=== PATIENT | male | born 1935 | race Hispanic/Latino ===

== ENCOUNTER 2018-01-14 10:30 | Inpatient (IN) | payer OTHER ==
[2018-01-14] MEDS ORDERED: HYDROCODONE/APAP 5/325 MG TAB ONE (11:10)
--- NOTE | 2018-01-14 12:44 | RAD REPORT ---
EXAM DESCRIPTION: RAD - Knee Left 3 View - 01/14/2018 11:33 am CLINICAL HISTORY: Slip and fall, knee pain COMPARISON: None. FINDINGS: No gross fracture deformity seen. No dislocation or periosteal reaction.Small to moderate joint effusion is present. Medial compartment narrowing seen with marginal spurring. Patellofemoral a nd lateral compartment marginal spurring also present. No joint space narrowing. No soft tissue abnor mality. IMPRESSION: Prominent knee joint degenerative change with joint effusion. No acute fracture identifiable. Clinical concerns for internal derangement or occult bony injury could be further assessed with MR im aging.
--- NOTE | 2018-01-14 12:46 | RAD REPORT ---
EXAM DESCRIPTION: RAD - Lumbar Spine 3 Views - 01/14/2018 11:35 am CLINICAL HISTORY: Fall, back pain COMPARISON: None. FINDINGS: A three-view lumbar spine examination was performed. Lumbar bodies are normal in height wi th no acute compression fracture deformity. There is approximately 10 mm of anterior subluxation L4 o n L5. L4 pars defect is not identified. There are advanced degenerative changes at the L4-5 facet bronson nts which likely account for the subluxation. Stenosis at the superior L5 level is likely present. L4 -5 disc space is narrowed. No pathologic bone process. There is significant disc space narrowing left lateral margin L3-4. L5-S1 disc space narrowing also present peer No pars defects identified. IMPRESSION: No acute compression fracture deformity. Prominent anterior subluxation L4 without L4 pars defect. There is advanced degenerative change at th e L4-5 facet joints. Spinal stenosis at the superior L5 level is likely present. L4-5 and L5-S1 degenerative disc disease.
[2018-01-14] MEDS ORDERED: D50W 25 GM/50 ML SYRINGE IV ONE ×2 (13:42→20:12)
[2018-01-14 14:36] LABS: Absolute Lymphocytes (CBC) 0.6 K/uL (0.7-4.9); Absolute Monocytes 0.4 K/uL (0.1-1.3); Absolute Neutrophil 1.1 K/uL (1.8-8.0); Basophils % 0.3 % (0-1.3); Eosinophils % 0.5 % (0-4.4); Hematocrit 22.9 % (39.6-49.0); MCH 29.8 pg (27.0-35.0); MCV 92.9 fL (80-100); MPV 9.3 fL (7.6-11.3); Monocytes % 20.4 % (3.3-12.3); RBC Red Blood Cell Count 2.46 M/uL (4.33-5.43)
--- NOTE | 2018-01-14 15:11 | RAD REPORT ---
EXAM DESCRIPTION: RAD - Foot Left 3 View - 01/14/2018 1:20 pm CLINICAL HISTORY: Slip and fall, toe pain COMPARISON: None. FINDINGS: No fracture, dislocation or periosteal reaction. No acute or destructive bony process. No air or foreign body in the soft tissues. IMPRESSION: Negative left foot examination.
--- NOTE | 2018-01-14 16:10 | ER ---
Nurse's Notes [facility] Name: Dennys Eden Jr Age: 82 yrs Sex: Male : 1935 Arrival Date: 01/14/2018 Time: 10:33 Bed 15 Private MD: Fercho Nicole R Diagnosis: Hypoglycemia, unspecified;Fall on same level from slipping, tripping and stumbling;Pain in left knee;Hypokalemia;Anemia, unspecified Presentation: 01/14 10:38 Presenting complaint: Child states: "slipped out of bed last night and the night sv before." Pt denies head injury. c/o left knee and toe pain. Care prior to arrival: None. 10:38 Acuity: RANDI 4 sv 10:38 Method Of Arrival: Wheelchair sv 10:40 Mechanism of Injury: Fall from bed. sv 10:50 Transition of care: patient was not received from another setting of care. Onset of rb1 symptoms was January 13, 2018. Risk Assessment: Do you want to hurt yourself or someone else? Patient reports no desire to harm self or others. Initial Sepsis Screen: Does the patient meet any 2 criteria? No. Patient's initial sepsis screen is negative. Does the patient have a suspected source of infection? No. Patient's initial sepsis screen is negative. Historical: - Allergies: 14:52 No Known Allergies; rb1 - Home Meds: 10:42 Celecoxib Oral [Active]; pantoprazole oral oral [Active]; atorvastatin oral oral sv [Active]; tamsulosin oral oral [Active]; Hydrochlorothiazide Oral [Active]; levothyroxine oral [Active]; metoprolol succinate oral oral [Active]; finasteride oral oral [Active]; losartan oral oral [Active]; 14:52 glimepiride 4 mg Oral tab 1 tab once daily [Active]; rb1 - PMHx: 10:42 Hypertension; Diabetes - NIDDM; Hypothyroidism; kidney insufficiency; sv - PSHx: 10:42 double bypass; sv - Immunization history:: Adult Immunizations up to date. - Ebola Screening: : Patient negative for fever greater than or equal to 101.5 degrees Fahrenheit, and additional compatible Ebola Virus Disease symptoms. - Social history:: Smoking status: Patient/guardian denies using tobacco. Screenin:50 Abuse screen: Denies threats or abuse. Nutritional screening: No deficits noted. rb1 Tuberculosis screening: No symptoms or risk factors identified. Fall Risk Fall in past 12 months (25 points). Secondary diagnosis (15 points) impaired mobility, No IV (0 pts). Ambulatory Aid- Crutches/Cane/Walker (15 pts). Gait- Impaired (20 pts.). Mental Status- Oriented to own ability (0 pts). Total Cabrera Fall Scale indicates High Risk Score (45 or more points). Fall prevention measures have been instituted. Side Rails Up X 2 Placed Close to Nursing Station 1:1 Attendant Assigned Frequent Obs/Assessments Occuring Family Present and informed to notify staff if the need to leave the bedside As available patient and family educated on Fall Prevention Program and Strategies. Assessment: 10:50 General: Appears uncomfortable, Behavior is calm, cooperative. Pain: Complains of pain rb1 in left knee and left great toe Pain currently is 10 out of 10 on a pain scale. Pain began last night Aggravated by weight bearing. Neuro: Level of Consciousness is awake, alert, obeys commands, Oriented to person, place, time, situation. Cardiovascular: Capillary refill < 3 seconds is brisk in bilateral fingers Pulses are palpable in left dorsalis pedis artery. Respiratory: Airway is patent Respiratory effort is even, unlabored, Respiratory pattern is regular, symmetrical. GI: No signs and/or symptoms were reported involving the gastrointestinal system. : No signs and/or symptoms were reported regarding the genitourinary system. Derm: Skin is dry, Skin is normal, Skin temperature is warm. Musculoskeletal: Swelling present in left knee. 11:10 Reassessment: Pt. went to X-ray. rb1 12:08 Reassessment: Patient appears in no apparent distress at this time. pt. is resting with rb1 eyes closed, respirations even, unlabored. call light within reach. bed in low, locked position. Family at bedside. 13:40 Reassessment: Pt. is diaphoretic and obtunded. Family at bedside. Provider aware of BS rb1 28, received order for 1 amp of D50 IVP. 13:47 Reassessment: Patient awake and alert 2 min post IV D 50 administration. Able to move aj extremities. 14:13 Reassessment: Patient is awake and alert. Ate roast beef sandwich and potato chips. aj 14:19 Reassessment: Dr. Posada and Rosalia Camara notified of critical lab value of 33. ss 14:30 Reassessment: Patient appears in no apparent distress at this time. Patient and/or rb1 family updated on plan of care and expected duration. Pain level reassessed. Patient is alert, oriented x 3, equal unlabored respirations, skin warm/dry/pink. 14:40 Reassessment: Received lab alert for Hgb of 7.3. rb1 14:42 Reassessment: Notified provider of lab alert for Hgb 7.3. rb1 15:30 Reassessment: Patient appears in no apparent distress at this time. No changes from rb1 previously documented assessment. 16:29 Reassessment: Patient appears in no apparent distress at this time. Patient and/or rb1 family updated on plan of care and expected duration. Pain level reassessed. Patient is alert, oriented x 3, equal unlabored respirations, skin warm/dry/pink. 17:23 Reassessment: Patient appears in no apparent distress at this time. No changes from rb1 previously documented assessment. Family at bedside. 18:21 Reassessment: Patient appears in no apparent distress at this time. Patient and/or rb1 family updated on plan of care and expected duration. Pain level reassessed. Patient is alert, oriented x 3, equal unlabored respirations, skin warm/dry/pink. 19:10 Reassessment: Report received from CHRIS Good. bs1 19:10 General: Appears uncomfortable, Behavior is cooperative. Pain: Complains of pain in bs1 left leg and left knee, left big toe. Neuro: Level of Consciousness is awake, alert, obeys commands, Oriented to person, place, time, situation. Cardiovascular: Denies chest pain, shortness of breath, Heart tones S1 S2 present Capillary refill < 3 seconds is brisk in bilateral fingers Pulses. Respiratory: Airway is patent Trachea midline Respiratory effort is even, unlabored, Respiratory pattern is regular, symmetrical, Breath sounds are clear bilaterally. GI: No signs and/or symptoms were reported involving the gastrointestinal system. : No signs and/or symptoms were reported regarding the genitourinary system. Derm: Skin left big toe red/swollen. Musculoskeletal: Circulation, motion, and sensation intact. Capillary refill < 3 seconds, Range of motion: limited in left leg and left knee Swelling present in left leg and left knee, left big toe. Vital Signs: 10:42 BP 106 / 48; Pulse 70; Resp 18; Temp 97.6(TE); Pulse Ox 96% on R/A; Weight 72.12 kg; sv Height 5 ft. 8 in. (172.72 cm); Pain 8; 11:30 BP 126 / 52; Pulse 57; Resp 19; Pulse Ox 99% on R/A; rb1 12:30 BP 97 / 48; Pulse 64; Resp 18; Pulse Ox 96% on R/A; mh5 13:18 BP 105 / 49; Pulse 52; Resp 18; Pulse Ox 97% on R/A; mh5 14:00 BP 122 / 68; Pulse 59; Resp 19; Pulse Ox 100% on R/A; rb1 14:30 BP 141 / 73; Pulse 55; Resp 19; Pulse Ox 100% on R/A; rb1 15:51 BP 147 / 63; Pulse 84; Resp 18; Pulse Ox 100% on R/A; mh5 16:30 BP 139 / 74; Pulse 66; Resp 18; Pulse Ox 100% on R/A; rb1 17:30 BP 133 / 71; Pulse 72; Resp 19; Pulse Ox 99% on R/A; rb1 18:30 BP 144 / 67; Pulse 69; Resp 19; Pulse Ox 99% on R/A; rb1 19:30 BP 144 / 61; Pulse 73; Resp 16 S; Temp 98(O); Pulse Ox 99% on R/A; bs1 10:42 Body Mass Index 24.18 (72.12 kg, 172.72 cm) sv ED Course: 10:33 Patient arrived in ED. sb2 10:34 Fercho Nicole MD is Private Physician. sb2 10:40 Triage completed. sv 10:45 Arm band placed on right wrist. sv 10:46 Latisha Infante, CHRIS is Primary Nurse. rb1 10:48 Jordan Posada MD is Attending Physician. gs 10:50 Patient has correct armband on for positive identification. Bed in low position. Call rb1 light in reach. Side rails up X 1. Pulse ox on. NIBP on. Warm blanket given. 10:51 Ros[facility] snw 11:15 Patient moved to radiology via stretcher. kc2 11:15 X-ray completed. Patient tolerated procedure well. kc2 11:15 Patient moved back from radiology. kc2 11:17 Knee Left 3 View XRAY In Process Unspecified. EDMS 11:17 Lumbar Spine (3 Views) XRAY In Process Unspecified. EDMS 13:20 Foot Left 3 View XRAY In Process Unspecified. EDMS 13:46 Inserted saline lock: 22 gauge in right forearm, using aseptic technique. Blood aj collected. 16:08 Fercho Nicole MD is Hospitalizing Provider. snw 17:33 Knee immobilizer applied on left knee. ss 19:00 Report given to CHRIS Chavez. rb1 19:47 No provider procedures requiring assistance completed. Inserted saline lock: 22 gauge bs1 in right antecubital area, using aseptic technique. IV inserted by day shift CHRIS Good Patient admitted, IV remains in place. intact. Administered Medications: 11:10 Drug: [place] 5 mg-325 mg 1 tabs Route: PO; rb1 11:40 Follow up: Response: No adverse reaction; Pain is decreased rb1 13:46 Drug: D50W 50 ml Route: IVP; Site: right forearm; aj 14:09 Follow up: Response: Marked relief of symptoms aj 16:23 Drug: LevaQUIN 500 mg Route: PO; rb1 19:49 Follow up: Response: No adverse reaction bs1 16:53 Drug: Potassium Chloride 20 mEq Route: PO; rb1 19:49 Follow up: Response: No adverse reaction bs1 Point of Care Testing: Blood Glucose: 13:46 Blood Glucose: 28 mg/dL; aj 14:13 Blood Glucose: 136 mg/dL; aj 15:50 Blood Glucose: 152 mg/dL; rb1 Ranges: Outcome: 16:10 Decision to Hospitalize by Provider. snw 19:48 Admitted to Tele accompanied by tech, via stretcher, room 423, with chart, Report bs1 called to CHRIS Sneed 19:48 Condition: stable 19:48 Instructed on the need for admit, Demonstrated understanding of instructions. 19:50 Patient left the ED. bs1 Signatures: Dispatcher [employer] Angela Hi RN RN sv Myers, Amanda, RN RN aj Therrien, Shelly, MICROFILM EQUIPMENT INSPECTOR-C MICROFILM EQUIPMENT INSPECTOR-Csnw Rosita Carrillo RN RN ss Barber, Rebecca, RN RN rb1 Carr, Kelsie kc2 Rufina Jara 5 Jordan Posada MD MD Kathy Pak RN RN bs1 Corazon French sb2 Corrections: (The following items were deleted from the chart) 11:15 11:15 Patient moved to radiology via wheelchair. kc2 kc2 14:52 10:42 Allergies: No Known Allergies; sv rb1
--- NOTE | 2018-01-14 16:10 | EDPHYS ---
Physician Documentation [facility] Name: Dennys Eden Jr Age: 82 yrs Sex: Male : 1935 Arrival Date: 01/14/2018 Time: 10:33 Bed 15 Private MD: Fercho Nicole R ED Physician Jordan Posada HPI: 01/14 13:45 This 82 yrs old Male presents to ER via Wheelchair with complaints of Fall snw Injury, Leg Swelling. 13:45 Details of fall: The patient fell from seated position, off the edge of a bed. Onset: snw The symptoms/episode began/occurred suddenly, yesterday, pt slid from bed again today. Associated injuries: The patient sustained left knee, decreased range of motion, painful injury, swelling. Severity of symptoms: At their worst the symptoms were moderate. It is unknown whether or not the patient has had similar symptoms in the past. The patient has not recently seen a physician. Historical: - Allergies: 14:52 No Known Allergies; rb1 - Home Meds: 10:42 Celecoxib Oral [Active]; pantoprazole oral oral [Active]; atorvastatin oral oral sv [Active]; tamsulosin oral oral [Active]; Hydrochlorothiazide Oral [Active]; levothyroxine oral [Active]; metoprolol succinate oral oral [Active]; finasteride oral oral [Active]; losartan oral oral [Active]; 14:52 glimepiride 4 mg Oral tab 1 tab once daily [Active]; rb1 - PMHx: 10:42 Hypertension; Diabetes - NIDDM; Hypothyroidism; kidney insufficiency; sv - PSHx: 10:42 double bypass; sv - Immunization history:: Adult Immunizations up to date. - Ebola Screening: : Patient negative for fever greater than or equal to 101.5 degrees Fahrenheit, and additional compatible Ebola Virus Disease symptoms. - Social history:: Smoking status: Patient/guardian denies using tobacco. ROS: 13:44 Eyes: Negative for injury, pain, redness, and discharge, ENT: Negative for injury, snw pain, and discharge, Neck: Negative for injury, pain, and swelling. 13:44 Cardiovascular: Negative for chest pain, palpitations, and edema, Respiratory: Negative for shortness of breath, cough, wheezing, and pleuritic chest pain, Abdomen/GI: Negative for abdominal pain, nausea, vomiting, diarrhea, and constipation, Back: Negative for injury and pain, : Negative for injury, bleeding, discharge, and swelling, Skin: Negative for injury, rash, and discoloration, Neuro: Negative for headache, weakness, numbness, tingling, and seizure. 13:44 Constitutional: Positive for fatigue, malaise. 13:44 MS/extremity: Positive for decreased range of motion, pain, swelling, tenderness, of the left knee. Exam: 12:42 Constitutional: This is a well developed, well nourished patient who is awake, alert, snw and in no acute distress. Head/Face: Normocephalic, atraumatic. Eyes: Pupils equal round and reactive to light, extra-ocular motions intact. Lids and lashes normal. Conjunctiva and sclera are non-icteric and not injected. Cornea within normal limits. Periorbital areas with no swelling, redness, or edema. ENT: Nares patent. No nasal discharge, no septal abnormalities noted. Tympanic membranes are normal and external auditory canals are clear. Oropharynx with no redness, swelling, or masses, exudates, or evidence of obstruction, uvula midline. Mucous membranes moist. Neck: Trachea midline, no thyromegaly or masses palpated, and no cervical lymphadenopathy. Supple, full range of motion without nuchal rigidity, or vertebral point tenderness. No Meningismus. Chest/axilla: Normal chest wall appearance and motion. Nontender with no deformity. No lesions are appreciated. Cardiovascular: Regular rate and rhythm with a normal S1 and S2. Grade IV systolic murmur. Normal PMI, no JVD. No pulse deficits. Respiratory: Lungs have equal breath sounds bilaterally, clear to auscultation and percussion. No rales, rhonchi or wheezes noted. No increased work of breathing, no retractions or nasal flaring. Abdomen/GI: Soft, non-tender, with normal bowel sounds. No distension or tympany. No guarding or rebound. No evidence of tenderness throughout. Guaiac negative Back: No spinal tenderness. No costovertebral tenderness. Full range of motion. Skin: Warm, dry with normal turgor. Normal color with no rashes, no lesions, and no evidence of cellulitis. MS/ Extremity: Pulses equal, no cyanosis. Neurovascular intact. Pain to left knee and great toe post fall out of bed yesterday and again today Neuro: Awake and alert, GCS 15, oriented to person, place, time, and situation. Cranial nerves II-XII grossly intact. Motor strength 5/5 in all extremities. Sensory grossly intact. Cerebellar exam normal. Normal gait. Vital Signs: 10:42 BP 106 / 48; Pulse 70; Resp 18; Temp 97.6(TE); Pulse Ox 96% on R/A; Weight 72.12 kg; sv Height 5 ft. 8 in. (172.72 cm); Pain 8/10; 11:30 BP 126 / 52; Pulse 57; Resp 19; Pulse Ox 99% on R/A; rb1 12:30 BP 97 / 48; Pulse 64; Resp 18; Pulse Ox 96% on R/A; mh5 13:18 BP 105 / 49; Pulse 52; Resp 18; Pulse Ox 97% on R/A; mh5 14:00 BP 122 / 68; Pulse 59; Resp 19; Pulse Ox 100% on R/A; rb1 14:30 BP 141 / 73; Pulse 55; Resp 19; Pulse Ox 100% on R/A; rb1 15:51 BP 147 / 63; Pulse 84; Resp 18; Pulse Ox 100% on R/A; mh5 16:30 BP 139 / 74; Pulse 66; Resp 18; Pulse Ox 100% on R/A; rb1 17:30 BP 133 / 71; Pulse 72; Resp 19; Pulse Ox 99% on R/A; rb1 18:30 BP 144 / 67; Pulse 69; Resp 19; Pulse Ox 99% on R/A; rb1 19:30 BP 144 / 61; Pulse 73; Resp 16 S; Temp 98(O); Pulse Ox 99% on R/A; bs1 10:42 Body Mass Index 24.18 (72.12 kg, 172.72 cm) sv MDM: 10:51 Patient medically screened. snw 13:42 Data reviewed: vital signs, nurses notes. Data interpreted: Pulse oximetry: on room air snw is 97 %. Interpretation: normal. Counseling: I had a detailed discussion with the patient and/or guardian regarding: the historical points, exam findings, and any diagnostic results supporting the discharge/admit diagnosis, lab results, radiology results. ED course: Went to relay results to patient, noted he was severely diaphoretic, decreased level of consciousness. Orders placed. 01/14 13:42 Order name: CBC with Diff snw 01/14 13:42 Order name: Chem 7; Complete Time: 14:25 snw 01/14 13:42 Order name: Blood Culture* snw 01/14 16:06 Order name: TS [facility] 01/14 16:06 Order name: TSH snw 01/14 16:06 Order name: Ferritin w 01/14 16:06 Order name: TIBC [facility] 01/14 16:06 Order name: B12 w 01/14 16:26 Order name: Troponin (Emerg Dept Use Only); Complete Time: 16:27 EDMS 01/14 16:29 Order name: Transferrin Sat/Iron Binding; Complete Time: 17:20 EDMS 01/14 16:47 Order name: Ferritin; Complete Time: 17:20 EDMS 01/14 16:51 Order name: Vitamin B12 Level; Complete Time: 17:20 EDMS 01/14 16:59 Order name: Thyroid Stimulating Hormone; Complete Time: 17:20 EDMS 01/14 11:02 Order name: Knee Left 3 View XRAY; Complete Time: 12:47 snw 01/14 11:02 Order name: Lumbar Spine (3 Views) XRAY; Complete Time: 12:47 snw 01/14 12:49 Order name: Knee Immobilizer; Complete Time: 17:32 snw 01/14 12:50 Order name: Foot Left 3 View XRAY; Complete Time: 15:14 snw 01/14 13:42 Order name: SL; Complete Time: 13:46 snw 01/14 13:42 Order name: FSBS; Complete Time: 13:46 snw 01/14 14:32 Order name: EKG; Complete Time: 14:33 snw 01/14 14:32 Order name: EKG - Nurse/Tech; Complete Time: 15:51 snw 01/14 15:47 Order name: FSBS; Complete Time: 15:51 snw 01/14 18:35 Order name: Type and Screen EDMS 01/14 18:35 Order name: ABO/RH no charge EDMS Administered Medications: 11:10 Drug: [place] 5 mg-325 mg 1 tabs Route: PO; rb1 11:40 Follow up: Response: No adverse reaction; Pain is decreased rb1 13:46 Drug: D50W 50 ml Route: IVP; Site: right forearm; aj 14:09 Follow up: Response: Marked relief of symptoms aj 16:23 Drug: LevaQUIN 500 mg Route: PO; rb1 19:49 Follow up: Response: No adverse reaction bs1 16:53 Drug: Potassium Chloride 20 mEq Route: PO; rb1 19:49 Follow up: Response: No adverse reaction bs1 Point of Care Testing: Blood Glucose: 13:46 Blood Glucose: 28 mg/dL; aj 14:13 Blood Glucose: 136 mg/dL; aj 15:50 Blood Glucose: 152 mg/dL; rb1 Ranges: Critical Glucose Levels:Adult <50 mg/dl or >400 mg/dl <40 mg/dl or >180 mg/dl Disposition: 01/15 12:41 Co-signature as Attending Physician, Jordan Posada MD. Disposition: 01/14/18 16:10 Hospitalization ordered by Fercho Nicole for Observation. Preliminary diagnosis are Hypoglycemia, unspecified, Fall on same level from slipping, tripping and stumbling, Pain in left knee, Hypokalemia, Anemia, unspecified. - Bed requested for Telemetry/MedSurg (observation). - Status is Observation. bs1 - Condition is Fair. - Problem is new. - Symptoms have improved. UTI on Admission? No Signatures: Dispatcher [employer] EDMS Angela Simms, RN Zelda Marvin RN Mariaelena Moore RN RN aj Therrien, Shelly, PROCESS DEVELOPMENT MANAGER-C PROCESS DEVELOPMENT MANAGER-Csnw Latisha Infante, RN RN rb1 Jordan Posada MD MD Kathy Pak, RN RN bs1 Corrections: (The following items were deleted from the chart) 01/14 13:45 12:42 Constitutional: This is a well developed, well nourished patient who is awake, snw alert, and in no acute distress. Head/Face: Normocephalic, atraumatic. Eyes: Pupils equal round and reactive to light, extra-ocular motions intact. Lids and lashes normal. Conjunctiva and sclera are non-icteric and not injected. Cornea within normal limits. Periorbital areas with no swelling, redness, or edema. ENT: Nares patent. No nasal discharge, no septal abnormalities noted. Tympanic membranes are normal and external auditory canals are clear. Oropharynx with no redness, swelling, or masses, exudates, or evidence of obstruction, uvula midline. Mucous membranes moist. Neck: Trachea midline, no thyromegaly or masses palpated, and no cervical lymphadenopathy. Supple, full range of motion without nuchal rigidity, or vertebral point tenderness. No Meningismus. Chest/axilla: Normal chest wall appearance and motion. Nontender with no deformity. No lesions are appreciated. Cardiovascular: Regular rate and rhythm with a normal S1 and S2. No gallops, murmurs, or rubs. Normal PMI, no JVD. No pulse deficits. Respiratory: Lungs have equal breath sounds bilaterally, clear to auscultation and percussion. No rales, rhonchi or wheezes noted. No increased work of breathing, no retractions or nasal flaring. Abdomen/GI: Soft, non-tender, with normal bowel sounds. No distension or tympany. No guarding or rebound. No evidence of tenderness throughout. Back: No spinal tenderness. No costovertebral tenderness. Full range of motion. Skin: Warm, dry with normal turgor. Normal color with no rashes, no lesions, and no evidence of cellulitis. MS/ Extremity: Pulses equal, no cyanosis. Neurovascular intact. Pain to left knee and great toe post fall out of bed yesterday and again today Neuro: Awake and alert, GCS 15, oriented to person, place, time, and situation. Cranial nerves II-XII grossly intact. Motor strength 5/5 in all extremities. Sensory grossly intact. Cerebellar exam normal. Normal gait. snw 14:52 10:42 Allergies: No Known Allergies; sv rb1 16:28 12:42 Constitutional: This is a well developed, well nourished patient who is awake, snw alert, and in no acute distress. Head/Face: Normocephalic, atraumatic. Eyes: Pupils equal round and reactive to light, extra-ocular motions intact. Lids and lashes normal. Conjunctiva and sclera are non-icteric and not injected. Cornea within normal limits. Periorbital areas with no swelling, redness, or edema. ENT: Nares patent. No nasal discharge, no septal abnormalities noted. Tympanic membranes are normal and external auditory canals are clear. Oropharynx with no redness, swelling, or masses, exudates, or evidence of obstruction, uvula midline. Mucous membranes moist. Neck: Trachea midline, no thyromegaly or masses palpated, and no cervical lymphadenopathy. Supple, full range of motion without nuchal rigidity, or vertebral point tenderness. No Meningismus. Chest/axilla: Normal chest wall appearance and motion. Nontender with no deformity. No lesions are appreciated. Cardiovascular: Regular rate and rhythm with a normal S1 and S2. Grade IV systolic murmur. Normal PMI, no JVD. No pulse deficits. Respiratory: Lungs have equal breath sounds bilaterally, clear to auscultation and percussion. No rales, rhonchi or wheezes noted. No increased work of breathing, no retractions or nasal flaring. Abdomen/GI: Soft, non-tender, with normal bowel sounds. No distension or tympany. No guarding or rebound. No evidence of tenderness throughout. Back: No spinal tenderness. No costovertebral tenderness. Full range of motion. Skin: Warm, dry with normal turgor. Normal color with no rashes, no lesions, and no evidence of cellulitis. MS/ Extremity: Pulses equal, no cyanosis. Neurovascular intact. Pain to left knee and great toe post fall out of bed yesterday and again today Neuro: Awake and alert, GCS 15, oriented to person, place, time, and situation. Cranial nerves II-XII grossly intact. Motor strength 5/5 in all extremities. Sensory grossly intact. Cerebellar exam normal. Normal gait. snw 18:29 16:10 Hospitalization Ordered by Fercho Nicole MD for Observation. Preliminary diagnosis dw is Hypoglycemia, unspecified; Fall on same level from slipping, tripping and stumbling; Pain in left knee; Hypokalemia; Anemia, unspecified. Bed requested for Telemetry/MedSurg (observation). Status is Observation. Condition is Fair. Problem is new. Symptoms have improved. UTI on Admission? No. snw 19:50 18:29 01/14/2018 16:10 Hospitalization Ordered by Fercho Nicole MD for Observation. bs1 Preliminary diagnosis is Hypoglycemia, unspecified; Fall on same level from slipping, tripping and stumbling; Pain in left knee; Hypokalemia; Anemia, unspecified. Bed requested for Telemetry/MedSurg (observation). Status is Observation. Condition is Fair. Problem is new. Symptoms have improved. UTI on Admission? No. dw
[2018-01-14] MEDS ORDERED: levoFLOXacin 500 MG TAB ONE (16:17)
[2018-01-14 16:29] LABS: Transferrin 105 mg/dL (180-329)
[2018-01-14 16:36] LABS: Iron < 7.0 ug/dL (45-182)
[2018-01-14 16:47] LABS: Ferritin 379.8 ng/ml (23.9-336.2)
[2018-01-14 16:59] LABS: Thyroid Stimulating Hormone 2.42 uIU/mL (0.34-5.60)
[2018-01-14] MEDS ORDERED: POTASSIUM CL SA 10 MEQ TAB PO ONE (17:01)
[2018-01-14 20:06] VITALS: BMI 24.1
[2018-01-14] MEDS ORDERED: GLUCAGON 1 MG/VIAL IM PRN (20:08)
[2018-01-14] MEDS ORDERED: D50W 25 GM/50 ML SYRINGE IV PRN (20:08)
[2018-01-14] MEDS ORDERED: D5.45NS W/KCL 20MEQ 1,000 ML IV SCH (20:08)
[2018-01-14 20:30] LABS: Blood Morphology Comment NOT SEEN (NOT SEEN); Platelet Estimate ADEQ
[2018-01-14 20:52] LABS: Potassium 3.6 mEq/L (3.6-5.0)
[2018-01-14 21:02] LABS: Absolute Lymphocytes (CBC) 0.4 K/uL (0.7-4.9); Absolute Monocytes 0.4 K/uL (0.1-1.3); Absolute Neutrophil 1.4 K/uL (1.8-8.0); Basophils % 0.4 % (0-1.3); Eosinophils % 0.5 % (0-4.4); Hematocrit 24.3 % (39.6-49.0); Lymphocytes % 17.8 % (15.3-44.8); MPV 9.8 fL (7.6-11.3); Monocytes % 17.7 % (3.3-12.3); RBC Red Blood Cell Count 2.64 M/uL (4.33-5.43)
[2018-01-14] MEDS: INSULIN -REGULAR HUMAN 50 UNIT/0.5 ML ML SQ SCH ×2 (21:03→21:04)
[2018-01-14 21:11] LABS: Urine White Blood Cell Casts OK
[2018-01-14 21:12] LABS: Blood Morphology Comment NOT SEEN (NOT SEEN); Platelet Estimate ADEQ
[2018-01-14] MEDS: ACETAMINOPHEN 500 MG TAB PO PRN (23:25)
[2018-01-15] MEDS: TRAMADOL HCL 50 MG TAB PO PRN ×3 (05:41→16:50)
[2018-01-15] MEDS: INSULIN -REGULAR HUMAN 50 UNIT/0.5 ML ML SQ SCH ×4 (07:30→21:00)
[2018-01-15] MEDS: FINASTERIDE 5 MG TAB PO SCH (08:56)
[2018-01-15] MEDS: TAMSULOSIN 0.4 MG SR CAP PO SCH (08:56)
[2018-01-15] MEDS: METOPROLOL XL 25 MG TAB PO SCH (08:56)
[2018-01-15] MEDS ORDERED: PANTOPRAZOLE 40MG TABLET PO SCH (09:00)
[2018-01-15 10:04] LABS: Urine Appearance CLEAR; Urine Bilirubin NEGATIVE (NEG); Urine Blood 1+ (NEG); Urine Color YELLOW; Urine Glucose NEGATIVE (NEG); Urine Protein 1+ (NEG); Urine Specific Gravity 1.015 (1.005-1.030); Urine Urobilinogen 0.2 mg/dL (0.2-1.0); Urine pH 5.5 (5.0-7.0)
[2018-01-15 10:16] LABS: Urine Bacteria <20 /HPF (NONE SEEN); Urine Culture Reflex Order NOT NEEDED; Urine Mucus 2+ /HPF (NONE SEEN); Urine RBC <5 /HPF (NONE SEEN)
--- NOTE | 2018-01-15 10:42 | EKG ---
Test Date: 2018-01-14 Test Time: 15:45:09 Guard Sergeant: ABEL MEASUREMENT RESULTS: Intervals: Rate: 62 ME: 116 QRSD: 92 QT: 426 QTc: 432 [place]: P: 57 ME: 116 QRS: -5 T: 18 INTERPRETIVE STATEMENTS: Normal sinus rhythm Incomplete right bundle branch block Borderline ECG No previous ECG available for comparison Electronically Signed On 01-15-18 10:41:30 CDT by Willy Courtney
[2018-01-15 12:26] LABS: Hematocrit 24.3 % (39.6-49.0)
[2018-01-15] MEDS ORDERED: NA CHLORIDE 0.9% 250 ML IV SCH (14:00)
[2018-01-15] MEDS ORDERED: SODIUM CHLORIDE 0.9% 10ML INJ IV PRN (14:19)
--- NOTE | 2018-01-15 14:36 | HP ---
Date of Admission: 01/14/2018 Chief Complaint: Fall. History Of Present Illness: An 82-year-old male was brought to the emergency room because of acciden zach fall. The patient was evaluated in the emergency room. The patient had x-ray of the foot and nancy mbar spine and knee x-rays. There was no evidence of fracture; however, during hospital stay, I was told that the patient had hypoglycemic reaction. At this point, I was called for observation. Jamil lira making rounds, I found that the patient's hemoglobin was low. I was not told about this finding. The patient also has low iron indicative of possible chronic GI bleeding. There is no GI physician o n-call today. Past Medical History: Positive for osteoarthritis, type 2 diabetes, hypothyroidism, chronic renal in sufficiency, coronary artery disease. Past Surgical History: Positive for coronary artery bypass surgery. Family History: Diabetes present. Personal History: Nonsmoker. Home Medicines: Please refer to the chart. Review of Systems: The patient denied any fever, chills, rigors, loss of consciousness. Physical Examination: General: Revealed 82-year-old, alert for his age. HEENT: No evidence of head injury. Neck: Supple. JVD negative. Old surgical scar seen. Lungs: Clear. Abdomen: No palpable mass. Extremities: No edema. There is a splint in place on the left knee with swelling of the knee. Laboratory Data: Hemoglobin at admission 7.3, WBC 2.1, monocytes 20.4. Iron low, vitamin B12 of 254 . TSH 2.4. X-rays negative for fracture. Assessment: 1.Severe anemia. 2.Hypoglycemia. 3.Known coronary artery disease. 4.Hypothyroidism. 5.Fall without any fractures. Plan: The patient claims to have had GI workup in [facility] including colonoscopy. According to t he patient, it was normal. The patient does not report any dark stools or other history suggestive o f recent bleeding. The patient will receive 1 unit of packed RBC today. GI consultation will be don e. The patient has leukopenia. It is not clear as to the cause of the nature of it. SAM/KEYLA Voice ID: [id number]
[2018-01-15] MEDS ORDERED: CYANOCOBALAMIN 1000MCG/ML INJ IM SCH (15:00)
[2018-01-15] MEDS: PANTOPRAZOLE 40 MG INJ IVP SCH (15:31)
--- NOTE | 2018-01-15 17:59 | RAD REPORT ---
EXAM DESCRIPTION: CT - Abdomen Pelvis Wo Contrast - 01/15/2018 5:14 pm CLINICAL HISTORY: Abdominal pain status post fall. A gastrointestinal bleed COMPARISON: None TECHNIQUE: Computed axial tomography of the abdomen and pelvis was obtained. IV was not requested. O ral contrast was given. All CT scans are performed using dose optimization technique as appropriate and may include automated exposure control or mA/KV adjustment according to patient size. FINDINGS: The evaluation of solid organs and vessels is limited secondary to the lack of contrast a dministration. Left pleural thickening is present. The liver,adrenals and right kidney appear grossly normal. Splenic granulomata are noted. The left kidney is small with cortical thinning. The pancreatic duct is dilated. The pancreatic head is mildly prominent. There may be small densities within the gallbladder The appendix is normal. There is no evidence of diverticulitis. A moderate amount of stool is present throughout the colon. There is no evidence of colitis. IMPRESSION: Pancreatic duct is dilated. Mild prominence of the pancreatic head is seen. These may al l be the sequela of chronic pancreatitis. MRI is recommended for further evaluation There appear to be vague small densities within the gallbladder which could indicate stones or sludge Moderate amount of stool within the colon
--- NOTE | 2018-01-15 18:10 | RAD REPORT ---
EXAM DESCRIPTION: Edilma Single View01/15/2018 5:30 pm CLINICAL HISTORY: Abd pain COMPARISON: 2016 FINDINGS: The lungs appear clear of acute infiltrate. The heart is normal size. Postsurgical change s involve the chest IMPRESSION: No acute abnormalities displayed
[2018-01-15] MEDS: ACETAMINOPHEN 500 MG TAB PO PRN (18:41)
[2018-01-15] MEDS: ATORVASTATIN 40 MG TAB PO SCH (20:55)
[2018-01-15 22:51] LABS: Hematocrit 22.7 % (39.6-49.0)
[2018-01-15 22:55] LABS: Albumin 2.1 g/dL (3.2-5.5); Bilirubin Total 0.7 mg/dL (0.3-1.2); Potassium 3.8 mEq/L (3.6-5.0); Protein, Total 5.5 g/dL (6.0-8.3)
[2018-01-15] MEDS ORDERED: CALCIUM CL 10% 13.6 MEQ in NA CHLORIDE 0.9% 100 ML IV ONE (23:33)
[2018-01-15] MEDS ORDERED: Caclcium Chloride 10% INJ SYR IV ONE (23:54)
[2018-01-16] MEDS ORDERED: NA CHLORIDE 0.9% 100 ML ONE (00:01)
[2018-01-16] MEDS ORDERED: NA CHLORIDE 0.9% 250 ML ONE (01:19)
[2018-01-16] MEDS: LEVOTHYROXINE SOD 0.025 MG TAB PO SCH (05:27)
[2018-01-16] MEDS: TRAMADOL HCL 50 MG TAB PO PRN ×3 (06:51→19:25)
[2018-01-16] MEDS: INSULIN -REGULAR HUMAN 50 UNIT/0.5 ML ML SQ SCH ×4 (07:30→21:00)
[2018-01-16 07:55] LABS: Absolute Lymphocytes (CBC) 0.6 K/uL (0.7-4.9); Absolute Monocytes 0.4 K/uL (0.1-1.3); Absolute Neutrophil 1.7 K/uL (1.8-8.0); Basophils % 0.6 % (0-1.3); Eosinophils % 0.9 % (0-4.4); Hematocrit 30.1 % (39.6-49.0); Lymphocytes % 20.8 % (15.3-44.8); MCV 91.2 fL (80-100); MPV 9.7 fL (7.6-11.3); Monocytes % 14.5 % (3.3-12.3)
[2018-01-16] MEDS: ACETAMINOPHEN 500 MG TAB PO PRN ×3 (08:13→21:49)
[2018-01-16] MEDS: PANTOPRAZOLE 40 MG INJ IVP SCH (09:12)
[2018-01-16] MEDS: TAMSULOSIN 0.4 MG SR CAP PO SCH (09:12)
[2018-01-16] MEDS: METOPROLOL XL 25 MG TAB PO SCH (09:12)
[2018-01-16] MEDS: FINASTERIDE 5 MG TAB PO SCH (09:12)
[2018-01-16 10:13] LABS: Platelet Estimate ADEQ; Urine White Blood Cell Casts OK
[2018-01-16 10:14] LABS: Anisocytosis 1+; Blood Morphology Comment NOTED (NOT SEEN)
[2018-01-16] MEDS: ATORVASTATIN 40 MG TAB PO SCH (20:30)
--- NOTE | 2018-01-17 01:31 | PN ---
The patient's hemoglobin after 2 units of packed RBCs is 10 g. He is feeling better. The patient ho wever needs upper GI endoscopy. It is possible that the patient may have had upper GI bleeding, pend ing GI consultation. Rest of current plan. SAM/KEYLA Voice ID: [id number] Report ID: [id number]
[2018-01-17] MEDS: LEVOTHYROXINE SOD 0.025 MG TAB PO SCH (05:21)
[2018-01-17] MEDS: INSULIN -REGULAR HUMAN 50 UNIT/0.5 ML ML SQ SCH ×4 (07:30→21:54)
[2018-01-17] MEDS: PANTOPRAZOLE 40 MG INJ IVP SCH (09:40)
[2018-01-17] MEDS: FINASTERIDE 5 MG TAB PO SCH (09:40)
[2018-01-17] MEDS: METOPROLOL XL 25 MG TAB PO SCH (09:40)
[2018-01-17] MEDS: TAMSULOSIN 0.4 MG SR CAP PO SCH (09:40)
[2018-01-17] MEDS ORDERED: NA CHLORIDE 0.9% 1,000 ML ONE (12:54)
[2018-01-17] MEDS ORDERED: PROPOFOL 200 MG/20 ML VIAL IV ONE (13:16)
--- NOTE | 2018-01-17 13:39 | ENDO RPT ---
[address], [address] EGD PROCEDURE REPORT EXAM DATE: 01/17/2018 PATIENT NAME: Dennys Eden V. MR#: [id number] BIRTHDATE: 1935 ATTENDING: Ronald Montelogno Dr STATUS: inpatient - [facility] PRACT[facility]ERS: Cassidy Escudero and Josy Montilla RN INDICATIONS: The patient is a 82 yr old Male here for an EGD due to iron deficiency anemia PROCEDURE PERFORMED: EGD with biopsy MEDICATIONS: Per Anesthesia. TOPICAL ANESTHETIC: none CONSENT: The patient understands the risks and benefits of the procedure and understands that these risks include, but are not limited to: sedation, allergic reaction, infection, perforation and/or bleeding. Alternative means of evaluation and treatment include, among others: physical exam, x-rays, and/or surgical intervention. The patient elects to proceed with this endoscopic procedure. DESCRIPTION OF PROCEDURE: During intra-op preparation period all mechanical medical equipment was checked for proper function. Hand hygiene and appropriate measures for infection prevention was taken. Procedure, possible complications, and alternatives including but not limited to the possibility of bleeding, perforation, tear, infection, sepsis, need for surgery, need for blood transfusion, and anesthesia related complications were explained to the patient. After the risks, benefits and alternatives of the procedure were thoroughly explained, Informed consent was verified, confirmed and timeout was successfully executed by the treatment team. The patient was placed in the left lateral position. The patient was anesthetized with topical anesthesia. Through the anesthetized oropharyngeal area, the scope was passed without any difficulty. The Pentax EG-[id number] ([id number]) endoscope was introduced through the mouth and advanced to the third portion of the duodenum. Retroflexed views revealed no abnormalities. The gastroscope was then slowly withdrawn and removed. The upper, middle, and distal third of the esophagus were carefully inspected and no abnormalities were noted. The z-line was well seen at the GEJ. The endoscope was pushed into the fundus which was normal including a retroflexed view. The antrum, first and second part of the duodenum were unremarkable. Gastric biopsies obtained. Small bowel biopsies obtained with history of iron deficiency anemia. ADVERSE EVENTS: There were no complications. IMPRESSIONS: 1. Normal EGD 2. Gastric biopsies obtained 3. Small bowel biopsies obtained with history of iron deficiency anemia. RECOMMENDATIONS: 1. await biopsy results 2. small bowel series 3. obtain GI work-up recently done at [facility] including colonoscopy 4. consider hematology disorder if NV work-up indeed negative REPEAT EXAM: Ronald Montelongo Dr eSigned: Ronald Montelongo Dr 01/17/2018 1:39 PM cc: uQin Ann CPT CODES: ICD9 CODES: PATIENT NAME: Dennys Eden V. MR#: [id number]
[2018-01-17] MEDS: ACETAMINOPHEN 500 MG TAB PO PRN (19:20)
--- NOTE | 2018-01-17 20:09 | RAD REPORT ---
EXAM DESCRIPTION: RAD - Small Bowel Series - 01/17/2018 5:38 pm CLINICAL HISTORY: Abdominal pain/anemia COMPARISON: None. FINDINGS: Contrast enters the colon by approximately 2 hours minutes. The mucosal folds of the small bowel appear normal. No permanent filling defects, obstructing or constricting lesions are seen. The small bowel caliber is normal. IMPRESSION: Unremarkable small bowel series.
[2018-01-17] MEDS: ATORVASTATIN 40 MG TAB PO SCH (20:57)
[2018-01-18] MEDS: LEVOTHYROXINE SOD 0.025 MG TAB PO SCH (05:13)
[2018-01-18] MEDS: INSULIN -REGULAR HUMAN 50 UNIT/0.5 ML ML SQ SCH ×3 (07:30→16:09)
[2018-01-18] MEDS: METOPROLOL XL 25 MG TAB PO SCH (08:21)
[2018-01-18] MEDS: TAMSULOSIN 0.4 MG SR CAP PO SCH (08:21)
[2018-01-18] MEDS: PANTOPRAZOLE 40 MG INJ IVP SCH (08:21)
[2018-01-18] MEDS: FINASTERIDE 5 MG TAB PO SCH (08:22)
[2018-01-18 08:31] VITALS: O2SAT 93
[2018-01-18 16:02] VITALS: BP 139/59; TEMP 97.8
--- NOTE | 2018-01-18 19:26 | PN ---
The patient is doing well. He still has pain in the left knee; however, the small bowel x-rays came back normal. The patient will be discharged and he will be followed in the office on Tuesday. He dinorah l be having an Orthopedic referral. He also needs more GI workup including small bowel series and po ssibly a repeat colonoscopy. This was explained to the patient and spouse today. SAM/KEYLA Voice ID: [id number] Report ID: [id number]
--- NOTE | 2018-01-23 01:56 | DS ---
Date of Discharge: 01/18/2018 Final Diagnoses: 1.Severe anemia. 2.Sprain, left knee. 3.Hyperglycemia. 4.Known coronary artery disease. 5.Hypothyroidism. Hospital Course: This patient was brought to the emergency room because of a fall. While in the [facility] room evaluation, he had hypoglycemia. The patient was initially admitted for observation. Ho junior, on the following day, I noticed that the patient's hemoglobin was low. The patient received 2 units of packed RBC. The patient had consultation with Dr. Montelongo as part of GI workup for his anem ia. There was no malignant pathology noted on the biopsies. The patient claimed to have had GI work up in [facility]; however, this needs to be evaluated to see whether he would require further GI wor kup for his anemia. His iron level was low. The patient also had injury to the knee; however, he al ready had consultation done with the Orthopedic doctor with whom he is following up locally. The patient after this evaluation was discharged home with advice to have continued GI workup and to get records from [facility] regarding his previous GI workup. Laboratory Data: Hemoglobin at admission 7.3, white count 2.1, monocytes 20. Iron low, B12 of 254. X-ray of the knee, no evidence of fracture. RRK/MODL Voice ID: [id number] Report ID: [id number]
--- NOTE | 2018-04-02 21:15 | CON ---
Date of Consultation: 01/17/2018 Reason For Consultation: Severe iron-deficiency anemia. History Of Present Illness: This patient is an 82-year-old male with history of diabetes, c hronic renal insufficiency, coronary artery disease, osteoarthritis, hypothyroidism, status post CABG . Patient brought to the hospital due to fall, found to have severe iron-deficiency anemia with hemo globin of 7.3 and a iron of less than 7. He is already status post 2 units of packed RBCs. Patient states he has not seen any blood, no melena, hematochezia, hematemesis, coffee-grounds emesis, hematu keyla, dysuria, polydipsia, no hemoptysis. He states that he had a recent GI workup at the [facility] 1-2 years ago with negative evaluation there he reports. He is status post a fall without fracture and seen in the hospital. Past Medical History: Significant for diabetes, hypothyroidism, chronic renal insufficiency, coronar y artery disease, osteoarthritis, status post CABG. Family History: Significant for father who of myocardial infarction, mother of stomach can cer. Other family members with diabetes. Social History: , 5 children. No tobacco. No alcohol. Physical Examination: Vital Signs: He is 5 feet 8 inches, 159 pounds, BMI 24.1 kg/sq m. He has a temperature of 97.8 degr ees Fahrenheit, pulse 64, respirations 18, blood pressure 111/58, O2 saturation 95%. General: He is a well-nourished, well-developed male, lying in bed, in no acute distress. HEENT: Normocephalic, atraumatic. Anicteric. Pupils equal, round, and reactive to light. Extraocu lar movements intact. Oropharynx is clear. Neck: Supple. No masses. Respirations: Clear to auscultation bilaterally. Cardiac: Regular rate and rhythm. No gallops or rubs. Gastrointestinal: Positive bowel sounds. Soft, nontender, nondistended. No hepatosplenomegaly. Extremities: No clubbing, cyanosis, or edema. 2+ pulses. Neuro: : Alert and oriented x3. Grossly nonfocal. 5/5 motor strength. Sensation intact to light touch. Data: Patient had a white count yesterday of 2.7, hemoglobin of 10.2 up from 7.3 on the 2nd, hematoc rit 30 up from 23, MCV of 91, platelet count of 260, polys of 63%, lymphocytes 21%, monocytes 15%, eo sinophils 1%, basophils 1%. On 3rd, he had a sodium of 131, potassium 3.8, chloride 102, bicarb 24, BUN of 24, creatinine of 1.7, glucose 117, calcium 6.8. Total bilirubin 0.67, AST 20, ALT 12, alkal ine phosphatase 46, total protein 5.5, albumin 2.1. TSH of 2.42. UA; 1+ blood, 1+ protein, 2+ mucus , otherwise negative. CT abdomen and pelvis on the 3rd revealed pancreatic duct appears dilated, mil d prominence of pancreatic head is seen, could be sequelae of chronic pancreatitis. MRCP recommended . Moderate amount of stool in the colon. Small bowel unremarkable. Impression: 1.Severe iron-deficiency anemia with iron less than 7. Hemoglobin 7.3 up to 10 after 2 units packed RBCs. No blood seen by patient. No melena, hematochezia, hematemesis, coffee-grounds emesis, hemat uria, dysuria, hematemesis. Reports recent GI workup via hospital [address] with some mild dilatation of the pancreatic duct. We will need further evaluation, po ssible MRCP. 3.History of falls without fracture. 4.History of coronary artery disease, diabetes, hypothyroidism, osteoarthritis, coronary artery bypa ss graft as stated above. Recommendation: 1.EGD now. 2.IV fluids. 3.Keep patient n.p.o. Consider colonoscopy after obtaining review of the hospital workup that was d one within the past 1-2 years. 4.PPI therapy. 5.Serial H and H and transfuse p.r.n. 6.Agree with transfusion of packed RBCs, 2 units given so for, and 2 more to be given. 7.We will try to obtain [facility] workup including EGD, colonoscopy, and other workups that has been done. We will proceed with a small bowel series as well for preparation for possible [employer] e valuation as an outpatient. 8.MRCP with dilated pancreatic duct. Patient can have this done as inpatient or outpatient in light of mild dilatation of pancreatic duct noted on CT scan. ALICE/KEYLA Voice ID: [id number] Report ID: [id number]
== END 2018-01-18 17:19 | disposition home or self-care (01) | DRG 812 ==
LOC: ER 10:30 → ERHOLD 15:55 → 4TH 19:42 → OBSVTOIN 01-16 10:14
PROVIDERS: ADMIT Internal Medicine; ATTEND Internal Medicine
PROC: 30233N1 Transfusion of Nonautologous Red Blood Cells into Peripheral Vein, Percutaneous Approach (ICD-10-PCS; principal; 2018-01-16)
PROC: 0DB88ZX Excision of Small Intestine, Via Natural or Artificial Opening Endoscopic, Diagnostic (ICD-10-PCS; 2018-01-17)
DX: D64.9 Anemia, unspecified (principal); S83.92XA Sprain of unspecified site of left knee, initial encounter; W06.XXXA Fall from bed, initial encounter; Y92.003 Bedroom of unspecified non-institutional (private) residence as the place of occurrence of the external cause; Z95.1 Presence of aortocoronary bypass graft; E11.649 Type 2 diabetes mellitus with hypoglycemia without coma; I25.10 Atherosclerotic heart disease of native coronary artery without angina pectoris; E03.9 Hypothyroidism, unspecified
CPT/HCPCS: 36415; 71045; 72100; 74176; 74250; 80048; 80053; 81001; 82607; 82728; 82962; 83540; 84443; 84466; 84484; 85014; 85018; 85025; 86850; 86900; 86901; 87040; 87077; 87186; 87205; 88305; 88312; 93005; 96374; 99285; C9113; J3420; J7030; P9016

== ENCOUNTER 2018-05-08 10:08 | Inpatient (IN) | payer OTHER ==
[2018-05-08 11:17] LABS: Absolute Lymphocytes (CBC) 0.3 K/uL (0.7-4.9); Absolute Monocytes 0.2 K/uL (0.1-1.3); Absolute Neutrophil 1.6 K/uL (1.8-8.0); Basophils % 0.5 % (0-1.3); Eosinophils % 0.7 % (0-4.4); Hematocrit 21.2 % (39.6-49.0); Lymphocytes % 15.3 % (15.3-44.8); MCH 31.4 pg (27.0-35.0); MCV 91.7 fL (80-100); MPV 9.1 fL (7.6-11.3); Monocytes % 9.7 % (3.3-12.3); RBC Red Blood Cell Count 2.31 M/uL (4.33-5.43)
--- NOTE | 2018-05-08 11:29 | RAD REPORT ---
EXAM DESCRIPTION: CT - Head C Spine Mpr Wo Con - 05/08/2018 11:12 am CLINICAL HISTORY: Head and neck injury status post fall. Head and neck pain COMPARISON: None. TECHNIQUE: Computed axial tomography of the head and cervical spine was obtained. Sagittal and coronal reconstruction was performed. All CT scans are performed using dose optimization technique as appropriate and may include automated exposure control or mA/KV adjustment according to patient size. FINDINGS: An intracranial bleed is not seen. The ventricles are normal in caliber. An extra-axial fl uid collection is not noted.Fluid within the visualized sinuses and mastoids is not seen A cervical fracture is not visualized. No dislocation is noted. Mild posterior subluxation of C4 on C 5 is seen. Moderate anterior subluxation of C7 on T1 is noted. The discs are thinned with osteophytes , disc bulges and facet hypertrophy. IMPRESSION: No acute intracranial abnormality is seen. A cervical fracture is not visualized. Mild posterior subluxation of C4 on C5 and moderate anterior subluxation of C7 on T1 probably is looper fixer diogo. If patient continues to have clinical symptoms to suggest intracranial/spinal cord/spinal cord pathol ogy then MRI would be recommended
--- NOTE | 2018-05-08 11:39 | RAD REPORT ---
EXAM DESCRIPTION: RAD - Pelvis - 05/08/2018 11:30 am CLINICAL HISTORY: Pelvic pain status post injury FINDINGS: No fracture or dislocation is seen. If the patient continues have symptoms to suggest an occult fracture MRI would be recommended
--- NOTE | 2018-05-08 11:41 | RAD REPORT ---
EXAM DESCRIPTION: RAD - Wrist Right 3 View - 05/08/2018 11:30 am CLINICAL HISTORY: Right wrist pain status post injury FINDINGS: No fracture or dislocation is seen. The bones are osteoporotic Marked osteoarthritis involves the first carpometacarpal joint If the patient continues to have symptoms to suggest an occult fracture then a followup plain film se kelsey in 7 days would be recommended.
[2018-05-08 11:44] LABS: Potassium 3.1 mmol/L (3.5-5.1)
[2018-05-08 11:52] LABS: Blood Morphology Comment NOT SEEN (NOT SEEN); Platelet Estimate ADEQ; Urine White Blood Cell Casts OK
--- NOTE | 2018-05-08 11:53 | RAD REPORT ---
EXAM DESCRIPTION: RAD - Elbow Right 3 View - 05/08/2018 11:33 am CLINICAL HISTORY: Fall, elbow pain COMPARISON: None. FINDINGS: No fracture is identified and no elevated posterior fat pad. There is no dislocation or pe riosteal reaction noted. No foreign body or other soft tissue abnormality. No other significant findi ng. IMPRESSION: Negative right elbow examination.
--- NOTE | 2018-05-08 13:43 | ER ---
Nurse's Notes [facility] Name: Dennys Eden Jr Age: 82 yrs Sex: Male : 1935 Arrival Date: 05/08/2018 Time: 10:11 Bed 24 Private MD: Fercho Nicole R Diagnosis: Anemia in chronic diseases classified elsewhere Presentation: 05/08 10:18 Presenting complaint: Patient states: "I fell down twice on Tuesday and twice Tuesday aa5 because I lost my balance". pt denies head injury, denies LOC. Pt reports pain to right wrist, right shoulder, and left elbow. 10:18 Transition of care: patient was not received from another setting of care. Onset of aa5 symptoms was April 2018. Risk Assessment: Do you want to hurt yourself or someone else? Patient reports no desire to harm self or others. Initial Sepsis Screen: Does the patient meet any 2 criteria? No. Patient's initial sepsis screen is negative. Does the patient have a suspected source of infection? No. Patient's initial sepsis screen is negative. Care prior to arrival: None. 10:18 Method Of Arrival: Wheelchair aa5 10:18 Acuity: RANDI 3 aa5 15:27 Mechanism of Injury: Fall from standing position. Trauma event details: Injury occurred mg2 in the [facility]. Historical: - Allergies: 10:20 No Known Allergies; aa5 - Home Meds: 15:30 atorvastatin Oral [Active]; Celecoxib Oral [Active]; finasteride Oral [Active]; mg2 glimepiride 4 mg Oral tab 1 tab once daily [Active]; Hydrochlorothiazide Oral [Active]; levothyroxine oral [Active]; losartan Oral [Active]; metoprolol succinate Oral [Active]; pantoprazole Oral [Active]; tamsulosin Oral [Active]; - PMHx: 10:20 Diabetes - NIDDM; Hypertension; Hypothyroidism; Kidney insufficiency; aa5 - PSHx: 10:20 double bypass; aa5 - Immunization history:: Pneumococcal vaccine is up to date, Flu vaccine is up to date. - Social history:: Smoking status: Patient/guardian denies using tobacco. - Immunization history: Last tetanus immunization: unknown. - Ebola Screening: : No symptoms or risks identified at this time. Screenin:46 Abuse screen: Denies threats or abuse. Denies injuries from another. Tuberculosis aj screening: No symptoms or risk factors identified. 15:26 Nutritional screening: No deficits noted. Fall Risk Fall in past 12 months (25 points). mg2 IV access (20 points). Gait- Weak (10 pts.). Primary Survey: 10:46 A: Airway: patent. Breathing/Chest: Respiratory pattern: regular, Respiratory effort: aj spontaneous, unlabored. Circulation: Skin color: pink. Disability Alert. 15:26 Reassessment Breathing/Chest Respiratory pattern Regular Respiratory effort Spontaneous mg2 Unlabored. Assessment: 10:46 General: Appears in no apparent distress. comfortable, Behavior is calm, cooperative, aj appropriate for age. Pain: Complains of pain in scalp, left hip, right hip, anterior aspect of right shoulder, right wrist and posterior aspect of right shoulder. Neuro: Level of Consciousness is awake, alert, obeys commands, Oriented to person, place, time, situation, Appropriate for age Full function Weakness in bilateral leg(s) Speech is normal, Facial symmetry appears normal. Respiratory: Airway is patent Respiratory effort is even, unlabored, Respiratory pattern is regular, symmetrical, Breath sounds are clear bilaterally. Derm: Skin is intact, is healthy with good turgor, Skin is pink, warm \\T\\ dry. normal. Musculoskeletal: Swelling present in right wrist Reports pain in scalp, left hip, right hip, anterior aspect of right shoulder, right wrist and posterior aspect of right shoulder. Vital Signs: 10:20 BP 135 / 61; Pulse 74; Resp 16 S; Temp 98.3(O); Pulse Ox 100% on R/A; Weight 63.5 kg aa5 (R); Height 5 ft. 8 in. (172.72 cm) (R); 12:02 BP 125 / 59; Pulse 76; Resp 17; Pulse Ox 98% on R/A; aj 15:00 BP 132 / 58; Pulse 65; Resp 18; Pulse Ox 100% on R/A; mg2 10:20 Body Mass Index 21.29 (63.50 kg, 172.72 cm) aa5 [place] Coma Score: 10:20 Eye Response: spontaneous(4). Verbal Response: oriented(5). Motor Response: obeys aa5 commands(6). Total: 15. Trauma Score (Adult): 10:20 Eye Response: spontaneous(1); Verbal Response: oriented(1); Motor Response: obeys aa5 commands(2); Systolic BP: > 89 mm Hg(4); Respiratory Rate: 10 to 29 per min(4); [place] Score: 15; Trauma Score: 12 ED Course: 10:11 Patient arrived in ED. mr 10:11 Fercho Nicole MD is Private Physician. mr 10:20 Arm band placed on Patient placed in an exam room, on a stretcher. aa5 10:27 Mariaelena Mas RN is Primary Nurse. aj 10:27 Triage completed. aa5 10:31 Jordan Posada MD is Attending Physician. gs 10:46 Patient has correct armband on for positive identification. aj 10:46 Patient maintains SpO2 saturation greater than 95% on room air. aj 10:55 X-ray completed. Portable x-ray completed in exam room. Patient tolerated procedure sw well. 10:56 Shoulder Right (2 View) XRAY In Process Unspecified. EDMS 10:58 Inserted saline lock: 20 gauge in left forearm, using aseptic technique. Blood aj collected. 11:07 CT completed. Patient tolerated procedure well. Patient moved to CT via stretcher. sj Patient moved to radiology Patient moved back from CT. 11:12 CT Head C Spine In Process Unspecified. EDMS 11:27 X-ray completed. Patient tolerated procedure well. Patient moved back from radiology. sw 11:29 Pelvis XRAY In Process Unspecified. EDMS 11:29 Wrist Right 3 View XRAY In Process Unspecified. EDMS 11:29 Elbow Right 3 View XRAY In Process Unspecified. EDMS 12:00 EKG done, by processing technician. reviewed by Jordan Posada MD. at1 13:41 Molly Schmidt MD is Hospitalizing Provider. gs 15:13 Reuben Kelley RN is Primary Nurse. mg2 15:25 No provider procedures requiring assistance completed. Patient admitted, IV remains in mg2 place. 15:30 Thermoregulation: warm blanket given to patient. mg2 Administered Medications: No medications were administered Intake: 10:46 PO: 0ml; Total: 0ml. aj Outcome: 13:42 Decision to Hospitalize by Provider. gs 15:25 Admitted to Med/surg accompanied by tech, via stretcher, room 201, with chart, Report mg2 called to CHRIS Arriaza 15:25 Condition: stable 15:25 Instructed on the need for admit, Demonstrated understanding of instructions. 15:27 Patient's length of stay in the Emergency Department was greater than 2 hours. mg2 15:33 Patient left the ED. mg2 Signatures: Dispatcher [employer] EDMariaelena Sargent, RN Rufina Valle mr Plasencia, Stacey Kong RN RN aa5 Mariaelena Garg, sales product specialist EKG Tat1 Ramonita Mejia Gregory, MD MD Reuben Kelley RN RN mg2
--- NOTE | 2018-05-08 13:43 | EDPHYS ---
Physician Documentation [facility] Name: Dennys Eden Jr Age: 82 yrs Sex: Male : 1935 Arrival Date: 05/08/2018 Time: 10:11 Bed 24 Private MD: Fercho Nicole R ED Physician Jordan Posada HPI: 05/08 18:29 This 82 yrs old Male presents to ER via Wheelchair with complaints of Fall gs Injury. 18:29 Details of fall: The patient fell from an upright position. Onset: The symptoms/episode gs began/occurred 4 day(s) ago. Associated injuries: The patient sustained injury to the head, contusion, neck injury, pain with movement, pelvis and right arm. Severity of symptoms: At their worst the symptoms were moderate, in the emergency department the symptoms are unchanged. The patient has experienced similar episodes in the past, a few times. Historical: - Allergies: 10:20 No Known Allergies; aa5 - Home Meds: 15:30 atorvastatin Oral [Active]; Celecoxib Oral [Active]; finasteride Oral [Active]; mg2 glimepiride 4 mg Oral tab 1 tab once daily [Active]; Hydrochlorothiazide Oral [Active]; levothyroxine oral [Active]; losartan Oral [Active]; metoprolol succinate Oral [Active]; pantoprazole Oral [Active]; tamsulosin Oral [Active]; - PMHx: 10:20 Diabetes - NIDDM; Hypertension; Hypothyroidism; Kidney insufficiency; aa5 - PSHx: 10:20 double bypass; aa5 - Immunization history:: Pneumococcal vaccine is up to date, Flu vaccine is up to date. - Social history:: Smoking status: Patient/guardian denies using tobacco. - Immunization history: Last tetanus immunization: unknown. - Ebola Screening: : No symptoms or risks identified at this time. ROS: 18:29 All other systems are negative. gs Exam: 18:29 Head/Face: Normocephalic, atraumatic. Eyes: Pupils equal round and reactive to light, gs extra-ocular motions intact. Lids and lashes normal. Conjunctiva and sclera are non-icteric and not injected. Cornea within normal limits. Periorbital areas with no swelling, redness, or edema. ENT: Nares patent. No nasal discharge, no septal abnormalities noted. Tympanic membranes are normal and external auditory canals are clear. Oropharynx with no redness, swelling, or masses, exudates, or evidence of obstruction, uvula midline. Mucous membranes moist. Chest/axilla: Normal chest wall appearance and motion. Nontender with no deformity. No lesions are appreciated. Cardiovascular: Regular rate and rhythm with a normal S1 and S2. No gallops, murmurs, or rubs. Normal PMI, no JVD. No pulse deficits. Respiratory: Lungs have equal breath sounds bilaterally, clear to auscultation and percussion. No rales, rhonchi or wheezes noted. No increased work of breathing, no retractions or nasal flaring. Abdomen/GI: Soft, non-tender, with normal bowel sounds. No distension or tympany. No guarding or rebound. No evidence of tenderness throughout. Back: No spinal tenderness. No costovertebral tenderness. Full range of motion. 18:29 Skin: Warm, dry with normal turgor. Normal color with no rashes, no lesions, and no evidence of cellulitis. Neuro: Awake and alert, GCS 15, oriented to person, place, time, and situation. Cranial nerves II-XII grossly intact. Motor strength 5/5 in all extremities. Sensory grossly intact. Cerebellar exam normal. Normal gait. 18:29 Constitutional: The patient appears alert, awake. 18:29 Neck: C-spine: vertebral tenderness, that is mild, appreciated at C5 and C6. 18:29 ECG was reviewed by the Attending Physician. 18:29 Musculoskeletal/extremity: Circulation is intact in all extremities. Joints: the right shoulder, right elbow and right wrist displays swelling, tenderness. Vital Signs: 10:20 BP 135 / 61; Pulse 74; Resp 16 S; Temp 98.3(O); Pulse Ox 100% on R/A; Weight 63.5 kg aa5 (R); Height 5 ft. 8 in. (172.72 cm) (R); 12:02 BP 125 / 59; Pulse 76; Resp 17; Pulse Ox 98% on R/A; aj 15:00 BP 132 / 58; Pulse 65; Resp 18; Pulse Ox 100% on R/A; mg2 10:20 Body Mass Index 21.29 (63.50 kg, 172.72 cm) aa5 [place] Coma Score: 10:20 Eye Response: spontaneous(4). Verbal Response: oriented(5). Motor Response: obeys aa5 commands(6). Total: 15. Trauma Score (Adult): 10:20 Eye Response: spontaneous(1); Verbal Response: oriented(1); Motor Response: obeys aa5 commands(2); Systolic BP: > 89 mm Hg(4); Respiratory Rate: 10 to 29 per min(4); [place] Score: 15; Trauma Score: 12 MDM: 10:36 Patient medically screened. 18:29 Differential diagnosis: closed head injury, contusion, fracture, sprain. Data reviewed: vital signs, nurses notes. Response to treatment: the patient's symptoms have mildly improved after treatment, and as a result, I will admit patient. 05/08 10:37 Order name: CBC with Diff; Complete Time: 12:05 05/08 10:37 Order name: Basic Metabolic Panel; Complete Time: 12:05 05/08 10:36 Order name: Shoulder Right (2 View) XRAY 05/08 10:57 Order name: Pelvis XRAY; Complete Time: 12:05 05/08 11:19 Order name: Type And Screen 05/08 11:19 Order name: CBC Smear Scan; Complete Time: 12:05 EDMS 05/08 10:37 Order name: EKG; Complete Time: 10:38 05/08 10:37 Order name: EKG - Nurse/Tech; Complete Time: 11:49 05/08 10:57 Order name: Wrist Right 3 View XRAY; Complete Time: 12:05 05/08 10:57 Order name: Elbow Right 3 View XRAY; Complete Time: 12:05 05/08 10:57 Order name: CT Head C Spine; Complete Time: 12:05 05/08 11:02 Order name: IV Saline Lock; Complete Time: 11:02 aj 05/08 13:46 Order name: Diet Ada 2000 Ernst; Complete Time: 13:46 aj EC:29 Rate is 66 beats/min. Rhythm is regular. NE interval is normal. QRS interval is normal. gs T waves are Flattened. No ST changes noted. Clinical impression: Abnormal EKG without significant change. Interpreted by me. Administered Medications: No medications were administered Disposition: 05/08/18 13:42 Hospitalization ordered by Molly Schmidt for Inpatient Admission. Preliminary diagnosis is Anemia in chronic diseases classified elsewhere. - Bed requested for Telemetry/MedSurg (Inpatient). - Status is Inpatient Admission. mg2 - Condition is Stable. - Problem is new. - Symptoms have improved. UTI on Admission? No Signatures: Dispatcher [employer] EDMS Elva Little Mariaelena Pathak RN RN aj Stacey Dobbs RN RN aa5 Jordan Posada MD MD Reuben Kelley RN RN mg2 Corrections: (The following items were deleted from the chart) 14:46 13:42 Hospitalization Ordered by Molly Schmidt MD for Inpatient Admission. Preliminary bd diagnosis is Anemia in chronic diseases classified elsewhere. Bed requested for Telemetry/MedSurg (Inpatient). Status is Inpatient Admission. Condition is Stable. Problem is new. Symptoms have improved. UTI on Admission? No. gs 15:33 14:46 05/08/2018 13:42 Hospitalization Ordered by Molly Schmidt MD for Inpatient mg2 Admission. Preliminary diagnosis is Anemia in chronic diseases classified elsewhere. Bed requested for Telemetry/MedSurg (Inpatient). Status is Inpatient Admission. Condition is Stable. Problem is new. Symptoms have improved. UTI on Admission? No. bd
--- NOTE | 2018-05-08 15:40 | EKG ---
Test Date: 2018-05-08 Test Time: 11:51:28 Reeling Machine Setup Operator: ADRI MEASUREMENT RESULTS: Intervals: Rate: 66 [place]: 132 QRSD: 100 QT: 412 QTc: 431 [place]: P: 57 [place]: 132 QRS: -17 T: 23 INTERPRETIVE STATEMENTS: Normal sinus rhythm with sinus arrhythmia Normal ECG Compared to ECG 01/14/2018 15:45:09 Incomplete right bundle-branch block no longer present Electronically Signed On 05-08-18 15:39:45 CDT by Willy Courtney
[2018-05-08] MEDS ORDERED: NA CHLORIDE 0.9% 1,000 ML IV SCH (15:57)
[2018-05-08] MEDS ORDERED: ONDANSETRON 4 MG/2 ML VIAL IV PRN (15:57)
--- NOTE | 2018-05-08 16:03 | P.HP ---
Certification for Inpatient Patient admitted to: Inpatient With expected LOS: >2 Midnights Patient will require the following post-hospital care: None Practitioner: I am a practitioner with admitting privileges, knowledge of patient current condition, hospital course, and medical plan of care. Services: Services provided to patient in accordance with Admission requirements found in Title 42 Section 412.3 of the Code of Federal Regulations Patient History Date of Service: 05/08/18 Primary Care Provider: Dr Nicole Reason for admission: Fall History of Present Illness: An 82-year-old male wiht pmhx of HTN, Diabetes, CAD and Anemia who was brought to the emergency room because of fall. Pt had a fall at the house and tuesday due to generalized weakness. Pt was admitted for similar Episode in the past. Pt had GI evaluation at that time. Pt has a colonoscopy deo on Jun 01, However is now having symptomatic Anemia. Pt denies any fever, chills, N/ V or any episode of black tarry stool or hematemesis Allergies No Known Allergies Allergy (Verified 01/14/18 23:39) Home Medications: Aspirin [Aspir-Low] 81 mg PO DAILY 01/14/18 Atorvastatin Calcium 40 mg PO DAILY 01/14/18 Finasteride [Proscar*] 5 mg PO DAILY 01/14/18 Levothyroxine [Synthroid*] 25 mcg PO DAILY 01/14/18 Losartan Potassium 100 mg PO DAILY 01/14/18 Metoprolol Succinate [Toprol Xl*] 25 mg PO DAILY 01/14/18 Pantoprazole Sodium 40 mg PO DAILY 01/14/18 Tamsulosin HCl [Flomax] 0.4 mg PO DAILY 01/14/18 hydroCHLOROthiazide [Hydrochlorothiazide*] 12.5 mg PO DAILY 01/14/18 - Past Medical/Surgical History Diabetic: Yes -: HTN -: NIDDM -: Inflammation of the Pancreas -: Hypothyroidism -: Kidney Insufficiency -: Double Bypass - Family History Mother -: Cancer Notes: Stomach Cancer Father Notes: Heart Attack - Social History Alcohol use: No CD- Drugs: No Caffeine use: Yes Review of Systems 10-point ROS is otherwise unremarkable Physical Examination - Vital Signs Temperature: 98.3 F Blood Pressure: 132/58 Pulse: 65 Respirations: 18 - Physical Exam General: Alert, In no apparent distress HEENT: Atraumatic, PERRLA, Mucous membr. moist/pink, EOMI, Sclerae nonicteric Neck: Supple, 2+ carotid pulse no bruit, No LAD, Without JVD or thyroid abnormality Respiratory: Clear to auscultation bilaterally, Normal air movement Cardiovascular: Regular rate/rhythm, Normal S1 S2 Gastrointestinal: Normal bowel sounds, No tenderness Musculoskeletal: No tenderness Integumentary: No rashes Neurological: Normal gait, Normal speech, Normal strength at 5/5 x4 extr, Normal tone, Normal affect Lymphatics: No axilla or inguinal lymphadenopathy - Studies Laboratory Data (last 24 hrs) 05/08/18 10:55: Sodium 139, Potassium 3.1 L, BUN 27 H, Creatinine 2.10 H, Glucose 173 H 05/08/18 10:55: WBC 2.2 L, Hgb 7.3 L*, Hct 21.2 L, Plt Count 228 Assessment and Plan - Problems (Diagnosis) (1) Fall Onset Date: 01/16/18 Current Visit: No Status: Acute Plan: Recurrent Fall due to Anemia -PT consult -Fall precautions (2) Anemia Current Visit: Yes Status: Acute Plan: Symptomatic Anemia. Most Likely Anemia of acute blood loss -GI consulted. Awaiting Recss -Stool occult and Fe Studies -Type and Screen -2 units PRBC transfusion -Possible EGD and Colonoscopy mau. Qualifiers: Anemia type: other cause Other causes of anemia: other cause, not classified Qualified Code(s): D64.89 - Other specified anemias (3) Diabetes Current Visit: Yes Status: Chronic Plan: ISS Qualifiers: Diabetes mellitus type: type 2 (4) HTN (hypertension) Current Visit: Yes Status: Chronic Plan: Restart hOme medication Qualifiers: Hypertension type: essential hypertension Qualified Code(s): I10 - Essential (primary) hypertension (5) CAD (coronary artery disease) Current Visit: Yes Status: Chronic Qualifiers: Coronary Disease-Associated Artery/Lesion type: [place] artery [place] vs. transplanted heart: [place] heart Associated angina: without angina Qualified Code(s): I25.10 - Atherosclerotic heart disease of [place] coronary artery without angina pectoris Discharge Plan: Home Plan to discharge in: 72 Hours - Advance Directives Does patient have a Living Will: No Does patient have a Durable POA for Healthcare: No - Code Status/Comfort Care Code Status Assessed: Yes Critical Care: No
[2018-05-08] MEDS: INSULIN -REGULAR HUMAN 50 UNIT/0.5 ML ML SQ SCH ×2 (16:30→21:00)
[2018-05-08] MEDS ORDERED: GOLYTELY 4000 ML PO SCH (17:00)
[2018-05-08] MEDS: KCL 20 MEQ/100 mL IVPB 20 MEQ/100 ML BAG IV SCH ×2 (18:34→23:07)
[2018-05-08] MEDS ORDERED: HYDRALAZINE HCL 20 MG/ML VIAL IV ONE (22:55)
[2018-05-08] MEDS ORDERED: GLUCAGON 1 MG/VIAL IV PRN (23:44)
[2018-05-08] MEDS ORDERED: NA CHLORIDE 0.9% 250 ML ONE (23:57)
[2018-05-08] MEDS: D50W 25 GM/50 ML SYRINGE IV PRN (23:57)
[2018-05-09] MEDS: ACETAMINOPHEN 500 MG TAB PO PRN ×2 (00:54→22:58)
[2018-05-09] MEDS ORDERED: NA CHLORIDE 0.9% 1,000 ML IV SCH (01:00)
[2018-05-09] MEDS ORDERED: ACETAMINOPHEN 650MG/RECT SUPP PR PRN (03:27)
[2018-05-09] MEDS: D5 0.45 NS 1,000 ML IV SCH ×2 (03:30→20:25)
[2018-05-09] MEDS: D50W 25 GM/50 ML SYRINGE IV PRN ×2 (05:21→23:52)
[2018-05-09] MEDS: INSULIN -REGULAR HUMAN 50 UNIT/0.5 ML ML SQ SCH ×4 (06:00→17:59)
[2018-05-09] MEDS: LEVOTHYROXINE SOD 0.05 MG TABLET PO SCH ×2 (07:30→11:30)
[2018-05-09 08:13] LABS: Absolute Lymphocytes (CBC) 0.4 K/uL (0.7-4.9); Absolute Monocytes 0.2 K/uL (0.1-1.3); Absolute Neutrophil 1.3 K/uL (1.8-8.0); Basophils % 0.4 % (0-1.3); Eosinophils % 1.5 % (0-4.4); Hematocrit 25.2 % (39.6-49.0); Lymphocytes % 21.1 % (15.3-44.8); MCH 30.9 pg (27.0-35.0); MCV 90.9 fL (80-100); MPV 8.5 fL (7.6-11.3); RBC Red Blood Cell Count 2.77 M/uL (4.33-5.43)
[2018-05-09 08:23] LABS: Magnesium 1.5 mg/dL (1.8-2.4)
[2018-05-09 08:26] LABS: Albumin 1.9 g/dL (3.4-5.0); Bilirubin Total 0.6 mg/dL (0.2-1.0); Protein, Total 6.1 g/dL (6.4-8.2)
[2018-05-09 08:29] LABS: Potassium 2.4 mmol/L (3.5-5.1)
[2018-05-09] MEDS ORDERED: ATORVASTATIN 40 MG TAB PO SCH (09:00)
[2018-05-09] MEDS: PANTOPRAZOLE 40MG TABLET PO SCH (09:00)
[2018-05-09] MEDS ORDERED: FUROSEMIDE 20 MG TABLET PO SCH (09:00)
[2018-05-09] MEDS: TAMSULOSIN 0.4 MG SR CAP PO SCH (09:00)
[2018-05-09] MEDS: METOPROLOL XL 25 MG TAB PO SCH (09:00)
[2018-05-09] MEDS: FINASTERIDE 5 MG TAB PO SCH (09:00)
[2018-05-09] MEDS ORDERED: HOME MED 1 EA UNK (Losartan Potassium [Losartan Potassium] 100 MG) PO SCH (09:00)
[2018-05-09] MEDS ORDERED: ASPIRIN EC 81 MG TAB PO SCH (09:00)
[2018-05-09] MEDS: KCL 20 MEQ/100 mL IVPB 20 MEQ/100 ML BAG IV SCH ×2 (10:07→13:40)
[2018-05-09] MEDS ORDERED: NA CHLORIDE 0.9% 0 ML ONE (10:44)
[2018-05-09] MEDS ORDERED: POLYETHYL GLY 3350 17 GM/DOSE PO ONE (12:02)
--- NOTE | 2018-05-09 13:18 | P.PN ---
Subjective Date of Service: 05/09/18 Primary Care Provider: Dr Nicole Chief Complaint: Fall Patient seen and examined at bedside with RN. Chart reviewed. Currently awaiting colonoscopy in EGD at this time. Review of Systems 10-point ROS is otherwise unremarkable Physical Examination - Vital Signs Temperature: 98.2 F Blood Pressure: 160/70 Pulse: 56 Respirations: 17 Pulse Ox (%): 97 - Physical Exam General: Alert, In no apparent distress HEENT: Atraumatic, PERRLA, EOMI Neck: Supple, JVD not distended Respiratory: Clear to auscultation bilaterally, Normal air movement Cardiovascular: Regular rate/rhythm, Normal S1 S2 Gastrointestinal: Normal bowel sounds, No tenderness Musculoskeletal: No tenderness Integumentary: No rashes Neurological: Normal speech, Normal tone, Normal affect Lymphatics: No axilla or inguinal lymphadenopathy - Studies Medications List Reviewed: Yes Assessment And Plan - Current Problems (Diagnosis) (1) Fall Onset Date: 01/16/18 Current Visit: No Status: Acute Plan: Recurrent Fall due to Anemia -PT consulted. Awaiting Reccs at this time -Fall precautions Qualifiers: Encounter type: initial encounter Qualified Code(s): W19.XXXA - Unspecified fall, initial encounter (2) Anemia Onset Date: 05/09/18 Current Visit: Yes Status: Acute Plan: Symptomatic Anemia. Most Likely Anemia of acute blood loss -GI consulted. Reccs Appreciated -EGD and colonoscopy once Electrolytes Replaces -Monitor H/H closely -On CLD now Qualifiers: Anemia type: other cause Other causes of anemia: other cause, not classified Qualified Code(s): D64.89 - Other specified anemias (3) Diabetes Onset Date: 05/09/18 Current Visit: Yes Status: Chronic Plan: ISS Qualifiers: Diabetes mellitus type: type 2 (4) HTN (hypertension) Onset Date: 05/09/18 Current Visit: Yes Status: Chronic Plan: Restart hOme medication Qualifiers: Hypertension type: essential hypertension Qualified Code(s): I10 - Essential (primary) hypertension (5) CAD (coronary artery disease) Onset Date: 05/09/18 Current Visit: Yes Status: Chronic Qualifiers: Coronary Disease-Associated Artery/Lesion type: [place] artery [place] vs. transplanted heart: [place] heart Associated angina: without angina Qualified Code(s): I25.10 - Atherosclerotic heart disease of [place] coronary artery without angina pectoris Discharge Plan: Home Plan to discharge in: 48 Hours - Code Status/Comfort Care Code Status Assessed: Yes Critical Care: No
[2018-05-09] MEDS ORDERED: POTASSIUM PHOS IN 0.9 % NACL 15 MMOL/250 ML BAG IV ONE (14:00)
[2018-05-09] MEDS ORDERED: POTASSIUM CL 40 MEQ in NA CHLORIDE 0.9% 500 ML IV SCH ×2 (14:00→20:00)
--- NOTE | 2018-05-09 16:27 | CON ---
Date of Consultation: 05/09/2018 Reason For Consultation: Anemia, hemoglobin is 7.3. History Of Present Illness: This patient is an 82-year-old male with history of diabetes, h ypertension, coronary artery disease, and anemia, who was brought to emergency room because of fall a nd generalized weakness, admitted to the hospital, found to have anemia, hemoglobin down to 7.3. He denies any melena, hematochezia, hematemesis, coffee-grounds emesis, hematuria, dysuria, polydipsia, or hemoptysis. Past Medical History: Significant for diabetes, hypertension, coronary artery disease, anemia, infla mmation of the pancreas in the past, chronic kidney disease, hypothyroidism, and two-vessel CABG. Medications: Medicines at home include aspirin, atorvastatin, Proscar, Synthroid, losartan, metoprol ol, Protonix, Flomax, and hydrochlorothiazide. Allergies: NKDA. Social History: No tobacco or alcohol. Lives with at home. Family History: Mother with stomach cancer. Father of heart attack. Review of Systems: The patient has a fall, but no melena, hematochezia, hematemesis, coffee-ground emesis, hematuria, dy suria, polydipsia, lower extremity edema, muscle aches, joint aches, backaches. No hemoptysis, cantu e in bowel habits, diarrhea, constipation, change in weight. The patient does have recent falls and was supposed to be seen as an outpatient for colonoscopy later in mid May, however, can come now due to all these falls he is having. Physical Examination: Vital Signs: The patient is afebrile. Vital signs are stable. Weight 5 feet 8 inches, 133 pounds, BMI 20.1 kg/m2. He has a temperature of 98.3 degrees Fahrenheit, pulse 65, respirations 16, blood pr essure 175/75, O2 saturation 98%. General: An elderly male, lying in bed, in no acute distress. HEENT: Normocephalic, atraumatic. Anicteric. Pupils are equal, round, and reactive to light. Extr aocular movements intact. Oropharynx is clear. Neck: Supple. No masses. Respirations: Clear to auscultation bilaterally. Cardiac: Regular rate and rhythm. No gallops or rubs. Abdomen: Positive bowel sounds. Soft, nontender, nondistended. No hepatosplenomegaly. Extremities: No clubbing, cyanosis, or edema. 2+ pulses. Neuro: Alert and oriented x3. Grossly focal. 5/5 motor strength. Sensation intact to light touch. Data: The patient has a white count of 1.9, hemoglobin of 8.6 up from 7.3 yesterday, MCV of 91, plat elet count of 178, polys 66% from 73% yesterday, lymphocytes 21%, monocytes 11%, eosinophils 2%. The patient has a sodium of 144, potassium 2.4, chloride 108, bicarb 26, BUN of 22, creatinine of 1.7, g lucose of 84, calcium 7.6, phosphorus 2.0, magnesium 1.5, total bilirubin 0.6, AST of 35, ALT of 33, alkaline phosphatase 65. Total protein 6.1, albumin 1.9. Impression: 1.Anemia, suspicion of gastrointestinal blood loss. Hemoglobin 7.3, up to 8.6 now. We will need to evaluate with esophagogastroduodenoscopy and colonoscopy on this admission. The patient had planned to have these done as an outpatient, but now with a fall, he seems less able to do this. 2.Hypokalemia. Will need to treat with IV potassium. 3.Hypomagnesemia. We will need to replete magnesium as well. 4.Neutropenia. His white count is down to 1.9, polys are down to 1.3 total. Will need to possibly consult Hematology unless obvious source for this can be found. We will consider CT of abdomen to ru le out possible typhlitis, cecal inflammation, though on exam, he does not seem to have any abdominal pain. Recommendations: 1.Replete potassium and magnesium. Monitor his white count. Make sure he does not become neutropen ic and treat accordingly and consider Hematology consultation. 2.EGD and colonoscopy. 3.PPI therapy. 4.Continue to monitor closely and monitor labs. ALICE/KEYLA Voice ID: [id number] Report ID: [id number]
[2018-05-09] MEDS ORDERED: Magnesium Sulfate 2gm IVPB 2 G/50 ML BAG IV ONE (17:00)
[2018-05-09 18:20] LABS: Urine Appearance CLEAR; Urine Bilirubin NEGATIVE (NEG); Urine Blood TRACE (NEG); Urine Color YELLOW; Urine Glucose NEGATIVE (NEG); Urine Protein 1+ (NEG); Urine Urobilinogen 0.2 mg/dL (0.2-1.0)
[2018-05-09 19:56] LABS: Urine Microscopic Reflex ORDER UMIC
[2018-05-09 20:23] LABS: Urine Amorphous Sediment 2+ /HPF (NONE SEEN); Urine Bacteria 20-50 /HPF (NONE SEEN); Urine Culture Reflex Order REFLEXED; Urine Mucus 1+ /HPF (NONE SEEN); Urine RBC <5 /HPF (NONE SEEN)
[2018-05-09 20:24] LABS: Urine Coarse Granular Casts 0-5 /LPF (NONE SEEN)
[2018-05-09] MEDS: ATORVASTATIN 40 MG TAB PO SCH (20:24)
[2018-05-10] MEDS: LEVOTHYROXINE SOD 0.025 MG TAB PO SCH (04:33)
[2018-05-10 05:25] LABS: Absolute Lymphocytes (CBC) 0.5 K/uL (0.7-4.9); Absolute Monocytes 0.2 K/uL (0.1-1.3); Basophils % 0.5 % (0-1.3); Eosinophils % 3.2 % (0-4.4); Lymphocytes % 27.3 % (15.3-44.8); MCH 31.3 pg (27.0-35.0); MCV 90.6 fL (80-100); MPV 8.3 fL (7.6-11.3); RBC Red Blood Cell Count 3.09 M/uL (4.33-5.43)
[2018-05-10 05:37] LABS: Magnesium 2.1 mg/dL (1.8-2.4); Phosphorus 1.7 mg/dL (2.5-4.9); Potassium 3.4 mmol/L (3.5-5.1)
[2018-05-10 05:43] LABS: Albumin 1.9 g/dL (3.4-5.0); Bilirubin Total 0.6 mg/dL (0.2-1.0); Potassium 3.4 mmol/L (3.5-5.1); Protein, Total 6.5 g/dL (6.4-8.2)
[2018-05-10] MEDS: INSULIN -REGULAR HUMAN 50 UNIT/0.5 ML ML SQ SCH ×4 (06:00→18:00)
[2018-05-10] MEDS ORDERED: POTASSIUM PHOS 20 MEQ in NA CHLORIDE 0.9% 250 ML IV ONE (06:10)
[2018-05-10] MEDS ORDERED: POTASSIUM PHOS IN 0.9 % NACL 15 MMOL/250 ML BAG IV ONE (06:29)
[2018-05-10 08:09] LABS: Blood Morphology Comment NOT SEEN (NOT SEEN); Platelet Estimate ADEQ; Urine White Blood Cell Casts OK
[2018-05-10] MEDS: PANTOPRAZOLE 40MG TABLET PO SCH (09:00)
[2018-05-10] MEDS: TAMSULOSIN 0.4 MG SR CAP PO SCH (09:00)
[2018-05-10] MEDS: FINASTERIDE 5 MG TAB PO SCH (09:00)
[2018-05-10] MEDS: METOPROLOL XL 25 MG TAB PO SCH (09:09)
--- NOTE | 2018-05-10 13:08 | P.PN ---
Subjective Date of Service: 05/10/18 Primary Care Provider: Dr Nicole Chief Complaint: Fall, anemia, neutropenia Subjective: Worsening (ANC down to 1.0 now from 1.3 yesterday and WBC from 1.7 to 1.3) Physical Examination - Vital Signs Temperature: 97 F Blood Pressure: 174/80 Pulse: 67 Respirations: 20 Pulse Ox (%): 96 - Studies Medications List Reviewed: Yes Assessment And Plan - Current Problems (Diagnosis) (1) Neutropenia Current Visit: Yes Status: Acute Comment: Worsening, see above. (2) Hypokalemia Current Visit: Yes Status: Acute Comment: Improved to 3.4 (3) Hypomagnesemia Current Visit: Yes Status: Acute Comment: Improved to 2.1 (4) Anemia Onset Date: 05/09/18 Current Visit: Yes Status: Acute Comment: Improved to 9.7 Qualifiers: Anemia type: other cause Other causes of anemia: other cause, not classified Qualified Code(s): D64.89 - Other specified anemias - Plan REC: 1) hold on EGD/colonoscopy until ANC increased to 1.5 or better 2) heart healthy diet today
[2018-05-10] MEDS: D5 0.45 NS 1,000 ML IV SCH (18:01)
[2018-05-10] MEDS ORDERED: POTASSIUM 25 MEQ EFFERV TAB PO ONE (21:00)
[2018-05-10] MEDS: ATORVASTATIN 40 MG TAB PO SCH (21:42)
[2018-05-11 05:16] LABS: Absolute Lymphocytes (CBC) 0.6 K/uL (0.7-4.9); Absolute Monocytes 0.1 K/uL (0.1-1.3); Absolute Neutrophil 0.6 K/uL (1.8-8.0); Basophils % 0.7 % (0-1.3); Eosinophils % 5.8 % (0-4.4); Hematocrit 24.9 % (39.6-49.0); Lymphocytes % 42.2 % (15.3-44.8); MCH 31.3 pg (27.0-35.0); MCV 90.2 fL (80-100); MPV 8.4 fL (7.6-11.3); Monocytes % 8.2 % (3.3-12.3); RBC Red Blood Cell Count 2.76 M/uL (4.33-5.43)
[2018-05-11 05:36] LABS: Albumin 1.7 g/dL (3.4-5.0); Bilirubin Total 0.4 mg/dL (0.2-1.0); Phosphorus 1.9 mg/dL (2.5-4.9); Potassium 3.7 mmol/L (3.5-5.1); Protein, Total 5.7 g/dL (6.4-8.2)
[2018-05-11] MEDS ORDERED: POTASSIUM PHOS IN 0.9 % NACL 15 MMOL/250 ML BAG IV ONE (05:43)
[2018-05-11] MEDS: LEVOTHYROXINE SOD 0.025 MG TAB PO SCH (06:19)
[2018-05-11] MEDS: INSULIN -REGULAR HUMAN 50 UNIT/0.5 ML ML SQ SCH ×4 (07:30→20:35)
[2018-05-11] MEDS: PANTOPRAZOLE 40MG TABLET PO SCH (08:54)
[2018-05-11] MEDS: TAMSULOSIN 0.4 MG SR CAP PO SCH (09:00)
[2018-05-11] MEDS: ACETAMINOPHEN 500 MG TAB PO PRN ×2 (09:54→14:41)
[2018-05-11] MEDS: METOPROLOL XL 25 MG TAB PO SCH (09:55)
[2018-05-11] MEDS: FINASTERIDE 5 MG TAB PO SCH (09:56)
[2018-05-11 12:18] LABS: RBC Red Blood Cell Count 2.77 M/uL (4.33-5.43)
[2018-05-11 12:55] LABS: Anisocytosis SLIGHT; Blood Morphology Comment NOTED (NOT SEEN); Hypersegmented Neutrophils PRESENT; Platelet Estimate ADEQ
[2018-05-11 12:56] LABS: Platelets, Giant FEW; Rouleau NOTED
[2018-05-11] MEDS: D5 0.45 NS 1,000 ML IV SCH ×2 (13:00→17:53)
[2018-05-11] MEDS ORDERED: TRAMADOL HCL 50 MG TAB PO PRN (16:36)
[2018-05-11 17:46] LABS: Folic Acid, (Folate) > 20.0 ng/mL (3.1-17.5)
--- NOTE | 2018-05-11 20:01 | P.CNS ---
Date of Consult: 05/11/18 (Hematology/Oncology) Reason for consultation: Anemia and leucopenia Pt seen on 05/11/18 5 pm. Family at bedside. HPI: Patient is a 82yr old gentleman presented to the ER with generalized weakness leading to a fall. He was noted to be anemic with a Hb of 7.3gm and also leucopenic with WBC of 2200. He denies any bleeding per rectum, melena or hematuria. Family reports that he is gradually becoming weak since January 2018. He had presented with similar complaints of symptomatic anemia in January 2018 as well when his Hb was 7.3gm and he was transfused and discharged. EGD at that time was negative, Colonoscopy was a few years ago and was apparently normal. Pt reports wt loss of 40 lbs over the past 4 months with worsening weakness, fatigue, loss of appetite. He has been reasonably active for his age until recently. Denies any fevers, chills, recent illnesses, viral exanthemas, sick contacts, travel, OTC meds, antibiotic use etc. He does report some flare ups of jt swelling alternating in the wrists and knees making activities/ movements painful. a 14 point ROS was done and pertinent points as in HPI. PMH/SH: HTN, HLD, CAD, Type DM, Hypothyroidism, arthritis, CKD, CABG FH: Father with CAD Mother dies of stimach cancer SH: Smoking: Used to smoke 1 ppd for ~ 40 years/ quit in the Alcohol: Used to drink 2-3 beers a day ~ 30 years, quit in Denies drug abuse Occ: oil transport driver EXAMINATION: General Appearance: Elderly appears young for stated age, tired. appears to be in no acute distress. Skin, Hair & Nails: normal texture, normal turgor and color. No open wounds. Head: normocephalic, atraumatic. Eyes: anicteric, no injection of conjunctivae. Ears: hearing grossly intact. Nose: nares patent. Throat: no erythema, no exudate. Neck: neck supple, without lymphadenopathy. Respiratory: good respiratory effort, clear to auscultation, no wheezing. Cardiovascular: regular rate and rhythm, no murmurs, no cyanosis. Abdomen: bowel sounds present and equal in all four quadrants, abdomen is soft, nondistended, no masses Peripheral Vascular: no pedal edema. Neurological: AAOx3, moving all extremities. Musc: B/l wrist jt swelling, deformity+ Lymph: no palpable supraclavicular, submental, cervical, axillary, epitrochlear LAD LABS: noted and reviewed WBC 1500/ ANC 600 Hb 8.6/ MCV 90 plt 172 iron 11/ TIBC 129/ ferritin 379 LDH 129/ bili0.4/ TAE negative/ retic ct 0.02 RBC 2.77 ESR 140/CRP 112 B12 534/folate 20 TSh January 2018 2.42 Alb 1.7/ May 4 Smear reviewed. Other than hypersegmented neutrophils, no immature cells or blasts noted on smear. Problems/ Recommendations: 1. Anemia: He is s/p 2 PRBC with a reasonable response. Iron panel shows evidence of iron deficiency (low iron and %sats) though ferritin is high, which could be an acute phase reactant indicating anemia of chronic inflammation as well. Some degree of anemia is also likely due to CKD. ESR and CRP significantly elevated indicating some underlying inflammation. Retic count is low to the degree of anemia and so is the RBC count which likely indicates possibility of underproduction/ bonemarrow issue. No evidence of hemolysis at this time. Recommend Iron replacement IV with venofer 100mg IV once daily x 2-3 doses to improve levels until GI work up can be done. Further IV doses can be given outpatient if needed. A comprehensive anemia work up in progress. Please also send for SPEP with immunofixation, serum free light chains, IgG, IgA , IgM levels, Erythropoietin level. 2.Leucopenia with moderate neutropenia: Does not seem acute. Seems gradually downtrending since January 2018 (wbc 09704/ ANC 1100 in January 2018). An underlying bone marrow process cannot be excluded at this time. Clinically he offers no pertinent s/s other than fatigue, wt loss and wrist jt swellings. Work up in progress to rule out potential reversible causes, infections, inflammations, autoimmune etiologies, etc. In the event no etiology is identified, bone marrow biopsy will be ideal. NO need for neupogen at this time. Maintain reverse isolation and infection precautions. Might need prophylactic antibiotics if febrile along with pancultures. Await flow cytometry eval. Abd sono for liver spleen evaluation. Monitor cbc daily. 3. Abnormal wt loss with worsening fatigue/ hypoalbuminemia: This is concerning. Consider imaging studies pending above Hematology and GI work up. I had a detailed discussion with multiple family members and patient about possible differentials. We will closely follow. Thank you for allowing me to participate int he care of this patient.
--- NOTE | 2018-05-11 20:21 | RAD REPORT ---
EXAM DESCRIPTION: US - Liver Only - 05/11/2018 7:57 pm CLINICAL HISTORY: Abdominal pain, abnormal liver functions studies COMPARISON: None. TECHNIQUE: Sonographic evaluation of the right upper quadrant was performed as a dedicated liver ult rasound study. FINDINGS: Liver is 17 cm in maximum dimension. Spleen is 12 cm in maximum dimension. No focal liver or spleen lesion identified. No measurable nodularity of the splenic capsule. No ascites in the right upper quadrant. Doppler evaluation shows normal flow direction and velocity in the portal vein. No p ortal thrombus. IMPRESSION: Liver is 17 cm in maximum dimension. No focal liver finding.
[2018-05-11] MEDS: ATORVASTATIN 40 MG TAB PO SCH (20:34)
[2018-05-11] MEDS ORDERED: TAMSULOSIN 0.4 MG SR CAP PO SCH (21:00)
--- NOTE | 2018-05-12 00:11 | PN ---
Subjective: The patient is generally stable. His blood count has fallen again. His white count is down to 1.5. The patient is already under Hematology consultation care. Pending recommendations, he will be continued on the same line of treatment. His IV fluids will be discontinued because of elev ated blood sugar and he is eating adequately. SAM/KEYLA Voice ID: [id number] Report ID: [id number]
[2018-05-12 06:17] LABS: Phosphorus 2.8 mg/dL (2.5-4.9); Potassium 3.7 mmol/L (3.5-5.1)
[2018-05-12] MEDS: LEVOTHYROXINE SOD 0.025 MG TAB PO SCH (06:21)
[2018-05-12] MEDS ORDERED: POTASSIUM CL SA 10 MEQ TAB PO ONE (06:29)
[2018-05-12] MEDS ORDERED: PANTOPRAZOLE 40MG TABLET PO SCH (06:30)
[2018-05-12] MEDS: INSULIN -REGULAR HUMAN 50 UNIT/0.5 ML ML SQ SCH (07:30)
[2018-05-12 08:17] VITALS: TEMP 97
[2018-05-12] MEDS ORDERED: INSULIN -REGULAR HUMAN 50 UNIT/0.5 ML ML SQ SCH (08:31)
[2018-05-12] MEDS: METOPROLOL XL 25 MG TAB PO SCH (08:40)
[2018-05-12] MEDS: FINASTERIDE 5 MG TAB PO SCH (08:41)
[2018-05-12 12:11] VITALS: BP 126/66
[2018-05-12 12:32] VITALS: O2SAT 99
[2018-05-12 21:44] LABS: Rheumatoid Factor NEG (NEG)
[2018-05-14 14:57] LABS: HIV 1/2 Antibody Diff Not indicated.; HIV AG/AB 4TH GEN Non-reactive (Non-reactive)
--- NOTE | 2018-05-16 13:18 | RAD REPORT ---
EXAM DESCRIPTION: RAD - Shoulder Right 2 View - 05/08/2018 10:55 am CLINICAL HISTORY: PAIN History of fall COMPARISON: No comparisons FINDINGS: No fracture or dislocation seen. High-riding humeral head may indicate underlying rotator cuff pathology.
== END 2018-05-12 14:35 | disposition home or self-care (01) | DRG 812 ==
LOC: ER 10:08 → INTOOBSV 14:14 → ERHOLD 14:14 → 2ND 15:27 → OBSVTOIN 05-10 14:59
PROVIDERS: ADMIT Family Medicine; ATTEND Internal Medicine
DX: D62 Acute posthemorrhagic anemia (principal); E11.9 Type 2 diabetes mellitus without complications; I25.10 Atherosclerotic heart disease of native coronary artery without angina pectoris; I10 Essential (primary) hypertension; E03.9 Hypothyroidism, unspecified; E87.6 Hypokalemia; E83.42 Hypomagnesemia; D70.9 Neutropenia, unspecified; W19.XXXA Unspecified fall, initial encounter
CPT/HCPCS: 36415; 70450; 72125; 72170; 76705; 80048; 80053; 81003; 81015; 82607; 82746; 82962; 83010; 83540; 83615; 83735; 84100; 84132; 84466; 85025; 85044; 85652; 86038; 86140; 86317; 86430; 86705; 86706; 86803; 86850; 86880; 86900; 86901; 87077; 87086; 87088; 87186; 87389; 93005; 97163; 99285; J0360; J3475; J7030; P9016

== ENCOUNTER 2018-12-26 12:40 | Inpatient (IN) | payer OTHER ==
--- OUTSIDE RECORDS SUMMARY | 2018-12-26 12:46 | XMS REPORT | Clinical Summary ---
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 Last Filed Vital Signs Vital Sign Reading Time Taken Blood Pressure 149/66 07/26/2018 2:15 PM [employer] Pulse 77 07/26/2018 2:15 PM [employer] Temperature 37.1 C (98.7 F) 07/26/2018 2:15 PM [employer] Respiratory Rate 18 07/26/2018 2:15 PM [employer] Oxygen Saturation 100% 07/26/2018 2:15 PM [employer] Inhaled Oxygen Concentration - - Weight 135 kg (297 lb 6.4 oz) 07/26/2018 2:15 PM [employer] Height 162.6 cm (5' 4") 07/26/2018 2:15 PM [employer] Body Mass Index 51.05 07/26/2018 2:15 PM [employer] Plan of Treatment Health Maintenance Due Date Last Done Comments SHINGLES VACCINES (#1) 1986 65+ PNEUMOCOCCAL VACCINE (1 of 2 - PCV13) 2001 PNEUMOCOCCAL POLYSACCHARIDE VACCINE AGE 65 AND OVER 2001 INFLUENZA VACCINE 03/15/2019 Procedures Procedure Name Priority Date/Time Associated Comments Diagnosis ERYTHROPOIETIN STAT 07/26/2018 3:09 MDS Results for this PM [employer] (myelodysplastic procedure are in syndrome) ([facility]) the results section. HC COMPLETE BLD COUNT STAT 07/26/2018 3:09 MDS Results for this W/AUTO DIFF PM [employer] (myelodysplastic procedure are in syndrome) ([facility]) the results section. after 12/25/2017 Results Erythropoietin (07/26/2018 3:09 PM [employer]) Erythropoietin 38.3 (H) 2.6 - 18.5 mIU/mL [facility] Specimen Serum Performing Organization Address City/State/Zipcode Phone Number [facility] DEPARTMENT OF PATHOLOGY AND [address] [place] [address] GENOMIC MEDICINE [facility] [address] [place] [id number] CBC with platelet and differential (07/26/2018 3:09 PM [employer]) WBC 2.03 (L) 4.50 - 11.00 k/uL [facility] RBC 2.37 (L) 4.40 - 6.00 m/uL [facility] HGB 7.7 (L) 14.0 - 18.0 g/dL [facility] HCT 23.7 (L) 41.0 - 51.0 % [facility] MCV 100.0 82.0 - 100.0 fL [facility] MCH 32.5 27.0 - 34.0 pg [facility] MCHC 32.5 31.0 - 37.0 g/dL [facility] RDW - SD 63.1 (H) 37.0 - 55.0 fL [facility] MPV 10.7 8.8 - 13.2 fL [facility] Platelet count 128 (L) 150 - 400 k/uL [facility] Nucleated RBC 0.00 /100 WBC [facility] Neutrophils 54.1 39.0 - 69.0 % [facility] Lymphocytes 29.6 25.0 - 45.0 % [facility] Monocytes 11.3 (H) 0.0 - 10.0 % [facility] Eosinophils 2.0 0.0 - 5.0 % [facility] Basophils 0.5 0.0 - 1.0 % [facility] Immature granulocytes 2.5 (H)Comment: 0.0 - 1.0 % [facility] "Immature HOSPITAL granulocytes" (promyelocytes, myelocytes, metamyelocytes) Specimen Blood Performing Organization Address City/State/Zipcode Phone Number [facility] DEPARTMENT OF PATHOLOGY AND [address] [place] [address] GENOMIC MEDICINE [facility] [address] [place] [address] after 12/25/2017 Insurance Payer Benefit Plan / Group Subscriber ID Type Phone Address [employer] [facility] xxxxxxxxx HMO Advance Directives Patient has advance care planning documents on file. For more information, please contact:[facility] [place] [phone]
--- NOTE | 2018-12-26 13:56 | RAD REPORT ---
EXAM DESCRIPTION: US - Renal Ultrasound-Complete - 12/26/2018 1:44 pm CLINICAL HISTORY: Abdominal pain COMPARISON: March 2018 FINDINGS: The right kidney measures 9 cm with an increased echotexture. The left kidney measures 8 cm with an increased echotexture. Renal cortical thinning Hydronephrosis is not seen. Bladder was decompressed IMPRESSION: Increased renal echotexture consistent with parenchymal disease Left renal cortical thinning
[2018-12-26 14:01] LABS: Absolute Lymphocytes (CBC) 0.9 K/uL (0.7-4.9); Absolute Monocytes 0.2 K/uL (0.1-1.3); Absolute Neutrophil 1.4 K/uL (1.8-8.0); Basophils % 0.4 % (0-1.3); Eosinophils % 3.1 % (0-4.4); Hematocrit 28.3 % (39.6-49.0); Lymphocytes % 34.3 % (15.3-44.8); MPV 9.9 fL (7.6-11.3); Monocytes % 9.2 % (3.3-12.3); Protime INR 1.11; RBC Red Blood Cell Count 2.86 M/uL (4.33-5.43)
[2018-12-26] MEDS ORDERED: NA CHLORIDE 0.9% 1,000 ML ONE (14:10)
--- NOTE | 2018-12-26 14:12 | RAD REPORT ---
EXAM DESCRIPTION: Edilma Single View12/26/2018 1:58 pm CLINICAL HISTORY: Cough COMPARISON: None FINDINGS: The lungs appear clear of acute infiltrate. The heart is normal size Postsurgical changes involve the chest. IMPRESSION: No acute abnormalities displayed
[2018-12-26 14:30] LABS: ALT/SGPT 29 U/L (12-78); AST/SGOT 21 U/L (15-37); Albumin 3.2 g/dL (3.4-5.0); Alkaline Phosphatase 94 U/L (45-117); BUN Blood Urea Nitrogen 38 mg/dL (7-18); Bicarbonate 19 mmol/L (21-32); Bilirubin Direct 0.1 mg/dL (0-0.2); Bilirubin Total 0.3 mg/dL (0.2-1.0); Glucose Level 208 mg/dL (74-106); Lipase 25 U/L (73-393); Magnesium 1.1 mg/dL (1.8-2.4); NT PRO-BNP 1200 pg/mL (<450); Sodium Level 145 mmol/L (136-145); Troponin (Emerg Dept Use Only) < 0.02 ng/mL (0.0-0.045)
[2018-12-26 14:45] LABS: Anisocytosis 2+; Blood Morphology Comment NOTED (NOT SEEN); Burr Cells FEW; Platelet Estimate ADEQ; Urine White Blood Cell Casts OK
--- NOTE | 2018-12-26 15:29 | ER ---
Nurse's Notes [facility] Name: Dennys Eden Jr Age: 83 yrs Sex: Male : 1935 Arrival Date: 12/26/2018 Time: 12:43 Bed 13 Private MD: Fercho Nicole R Diagnosis: Volume depletion;Unspecified kidney failure;Hypomagnesemia;Hypokalemia;Weakness Presentation: 12/26 12:59 Presenting complaint: Patient states: "I went to see the kidney doctor and he said my aj1 blood is too low. I had blood work done last week, so he sent me here". Transition of care: patient was not received from another setting of care. Onset of symptoms was December 26, 2018. Risk Assessment: Do you want to hurt yourself or someone else? Patient reports no desire to harm self or others. Initial Sepsis Screen: Does the patient meet any 2 criteria? No. Patient's initial sepsis screen is negative. Does the patient have a suspected source of infection? No. Patient's initial sepsis screen is negative. Care prior to arrival: None. 12:59 Method Of Arrival: Ambulatory aj1 12:59 Acuity: RANDI 3 aj1 Triage Assessment: 13:03 General: Appears in no apparent distress. comfortable, Behavior is calm, cooperative, aj1 appropriate for age. Pain: Denies pain. Neuro: Level of Consciousness is awake, alert, obeys commands. Cardiovascular: Patient's skin is warm and dry. Respiratory: Airway is patent Respiratory effort is even, unlabored, Respiratory pattern is regular, symmetrical. Historical: - Allergies: 13:03 No Known Allergies; aj1 - Home Meds: 13:03 atorvastatin 40 mg oral tab once daily [Active]; levothyroxine 25 mcg oral tab once aj1 daily [Active]; aspirin 81 mg Oral chew 1 tab once daily [Active]; prednisone 5 mg Oral tab one every other day [Active]; finasteride 5 mg oral tab once daily [Active]; tamsulosin 0.4 mg oral cp24 once daily [Active]; furosemide 20 mg Oral tab 1 tab once daily [Active]; glimepiride 2 mg oral tab [Active]; pantoprazole 40 mg oral TbEC once daily [Active]; metoprolol succinate 25 mg oral Tb24 once daily [Active]; - PMHx: 13:03 Diabetes - NIDDM; Hypertension; Hypothyroidism; Kidney insufficiency; aj1 - Immunization history:: Flu vaccine is up to date. - Social history:: Smoking status: Patient/guardian denies using tobacco. - Ebola Screening: : Patient denies travel to an Ebola-affected area in the 21 days before illness onset. Screenin:06 Fall Risk None identified. rb1 13:30 Abuse screen: Denies threats or abuse. Denies injuries from another. Nutritional ss screening: No deficits noted. Tuberculosis screening: Never had TB. Assessment: 13:06 General: Appears in no apparent distress. comfortable, slender, Behavior is calm, rb1 cooperative, Denies fever, feeling ill. Pain: Denies pain. Neuro: Level of Consciousness is awake, alert, obeys commands, Oriented to person, place, time, situation. Cardiovascular: Capillary refill < 3 seconds is brisk in bilateral fingers. Respiratory: Airway is patent Respiratory effort is even, unlabored, Respiratory pattern is regular, symmetrical. GI: No signs and/or symptoms were reported involving the gastrointestinal system. : No signs and/or symptoms were reported regarding the genitourinary system. Derm: Skin is dry, Skin is normal, Skin temperature is warm. 13:30 Reassessment: EKG and US tech at bedside. ss 14:00 Reassessment: Patient appears in no apparent distress at this time. No changes from rb1 previously documented assessment. 15:00 Reassessment: Patient appears in no apparent distress at this time. Patient and/or rb1 family updated on plan of care and expected duration. Pain level reassessed. Patient is alert, oriented x 3, equal unlabored respirations, skin warm/dry/pink. Patient denies pain at this time. 15:55 Reassessment: Patient appears in no apparent distress at this time. No changes from rb1 previously documented assessment. Pt. requested a food tray; Dr. Whaley notified. Received order for a diabetic food tray. 16:55 Reassessment: Patient appears in no apparent distress at this time. Patient and/or rb1 family updated on plan of care and expected duration. Pain level reassessed. Patient is alert, oriented x 3, equal unlabored respirations, skin warm/dry/pink. Patient denies pain at this time. 17:52 Reassessment: Patient appears in no apparent distress at this time. No changes from rb1 previously documented assessment. Patient denies pain at this time. 17:57 Reassessment: Called to give report. Spoke to Ara, she stated "Haylie will be rb1 getting the pt. but she just took a pt. downstairs so I will have her call you back.". 18:25 Reassessment: Patient appears in no apparent distress at this time. Patient and/or rb1 family updated on plan of care and expected duration. Pain level reassessed. Patient is alert, oriented x 3, equal unlabored respirations, skin warm/dry/pink. Patient denies pain at this time. 18:31 Reassessment: Gave report to CHRIS Stallings. Information from the SBAR was given. All rb1 questions asked and answered. Vital Signs: 13:03 BP 134 / 70; Pulse 62; Resp 18; Temp 97.9(TE); Pulse Ox 100% on R/A; Weight 63.5 kg aj1 (R); Height 5 ft. 7 in. (170.18 cm) (R); Pain 0/10; 14:00 BP 160 / 63; Pulse 48; Resp 16; Temp 98.0(O); Pulse Ox 100% ; Pain 0/10; rb1 15:00 BP 144 / 59; Pulse 44; Resp 15; Temp 98.1; Pulse Ox 100% on R/A; Pain 0/10; rb1 15:30 BP 159 / 62; Pulse 47; Resp 16; Temp 98.7(O); Pulse Ox 100% on R/A; Pain 0/10; rb1 16:30 BP 149 / 61; Pulse 48; Resp 16; Temp 98.5(O); Pulse Ox 100% on R/A; Pain 0/10; rb1 17:30 BP 136 / 56; Pulse 51; Resp 15; Temp 98.2(O); Pulse Ox 100% on R/A; Pain 0/10; rb1 18:30 BP 140 / 58; Pulse 51; Resp 15; Temp 98.6(O); Pulse Ox 100% ; Pain 0/10; rb1 13:03 Body Mass Index 21.93 (63.50 kg, 170.18 cm) aj1 ED Course: 12:43 Patient arrived in ED. mr 12:43 Fercho Nicole MD is Private Physician. mr 12:47 Ashok Whaley MD is Attending Physician. snw 13:00 Triage completed. aj1 13:03 Arm band placed on Patient placed in an exam room. aj1 13:24 EKG done, by technical support analyst. reviewed by Ashok Whaley MD. at1 13:30 Patient has correct armband on for positive identification. Placed in gown. Bed in low ss position. Call light in reach. Side rails up X 1. 13:37 Radiology exam delayed due to IN US EXAM AT TIME ATTEMPT OF CXR. sw 13:44 US Rp Exam Complete In Process Unspecified. EDMS 13:49 X-ray completed. Portable x-ray completed in exam room. Patient tolerated procedure mh1 well. 13:55 Rosita Carrillo, CHRIS is Primary Nurse. ss 13:58 XRAY Chest (1 view) In Process Unspecified. EDMS 13:58 Initial lab(s) drawn, by me, sent to lab. Inserted saline lock: 20 gauge in right em1 antecubital area, using aseptic technique. Blood collected. 15:09 Notified ED physician of a critical lab result(s). Ca 6.4, Mg 1.1. ss 15:27 Fercho Nicole MD is Hospitalizing Provider. miladis 18:40 No provider procedures requiring assistance completed. Patient admitted, IV remains in rb1 place. Administered Medications: 14:03 Drug: NS 0.9% 1000 ml Route: IV; Rate: 75 ml/hr; Site: right antecubital; ss 18:40 Follow up: IV Status: Infusion continued upon admission rb1 15:45 Drug: Potassium Effervescent Tablet 25 mEq Route: PO; rb1 16:15 Follow up: Response: No adverse reaction rb1 15:45 Drug: Magnesium Sulfate 1 grams Route: IVPB; Infused Over: 1 hrs; Site: right rb1 antecubital; 16:48 Follow up: Response: No adverse reaction; IV Status: Completed infusion rb1 16:25 Drug: Potassium Effervescent Tablet 25 mEq Route: PO; rb1 16:48 Follow up: Response: No adverse reaction rb1 17:20 Drug: Magnesium Sulfate 1 grams Route: IVPB; Infused Over: 1 hrs; Site: right rb1 antecubital; 18:34 Follow up: Response: No adverse reaction; IV Status: Completed infusion rb1 Point of Care Testing: Blood Glucose: 16:24 Blood Glucose: 132 mg/dL; rb1 Ranges: Output: 17:33 Urine: 300ml (Voided); Total: 300ml. rb1 Outcome: 15:28 Decision to Hospitalize by Provider. miladis 18:40 Patient left the ED. rb1 18:40 Admitted to Tele accompanied by tech, family with patient, via wheelchair, room 410, rb1 with chart, Report called to CHRIS Stallings 18:40 Condition: stable 18:40 Instructed on the need for admit. Signatures: Dispatcher [employer] Gabriela Richards, RN RN lo1 Ashok Whaley MD MD cha Therrien, Shelly, WARDROBE CONSULTANT-C WARDROBE CONSULTANT-Csnw Hudson, Lizbeth mr BryanJoanne 1 Marek, Eduardo 1 Rosita Carrillo, RN RN Mariaelena Garg, human resources clerk EKG [facility] Ramonita Mejia Rebecca, RN CHRIS rb1
--- NOTE | 2018-12-26 15:29 | EDPHYS ---
Physician Documentation [facility] Name: Dennys Eden Jr Age: 83 yrs Sex: Male : 1935 Arrival Date: 12/26/2018 Time: 12:43 Bed 13 Private MD: Fercho Nicole R ED Physician Ashok Whaley HPI: 12/26 15:22 This 83 yrs old Male presents to ER via Ambulatory with complaints of Cat miladis scan, Doctor Referral. 15:22 renal failure, weakness, volume depletion. Onset: The symptoms/episode began/occurred 5 miladis day(s) ago. Severity of symptoms: At their worst the symptoms were mild moderate in the emergency department the symptoms are unchanged. The patient has not experienced similar symptoms in the past. Historical: - Allergies: 13:03 No Known Allergies; aj1 - Home Meds: 13:03 atorvastatin 40 mg oral tab once daily [Active]; levothyroxine 25 mcg oral tab once aj1 daily [Active]; aspirin 81 mg Oral chew 1 tab once daily [Active]; prednisone 5 mg Oral tab one every other day [Active]; finasteride 5 mg oral tab once daily [Active]; tamsulosin 0.4 mg oral cp24 once daily [Active]; furosemide 20 mg Oral tab 1 tab once daily [Active]; glimepiride 2 mg oral tab [Active]; pantoprazole 40 mg oral TbEC once daily [Active]; metoprolol succinate 25 mg oral Tb24 once daily [Active]; - PMHx: 13:03 Diabetes - NIDDM; Hypertension; Hypothyroidism; Kidney insufficiency; aj1 - Immunization history:: Flu vaccine is up to date. - Social history:: Smoking status: Patient/guardian denies using tobacco. - Ebola Screening: : Patient denies travel to an Ebola-affected area in the 21 days before illness onset. ROS: 15:23 Constitutional: Negative for fever, chills, and weight loss, Eyes: Negative for injury, miladis pain, redness, and discharge, ENT: Negative for injury, pain, and discharge, Neck: Negative for injury, pain, and swelling, Cardiovascular: Negative for chest pain, palpitations, and edema, Respiratory: Negative for shortness of breath, cough, wheezing, and pleuritic chest pain, Abdomen/GI: Negative for abdominal pain, nausea, vomiting, diarrhea, and constipation, Back: Negative for injury and pain, MS/Extremity: Negative for injury and deformity, Skin: Negative for injury, rash, and discoloration, Psych: Negative for depression, anxiety, suicide ideation, homicidal ideation, and hallucinations, Allergy/Immunology: Negative for hives, rash, and allergies, Endocrine: Negative for neck swelling, polydipsia, polyuria, polyphagia, and marked weight changes, Hematologic/Lymphatic: Negative for swollen nodes, abnormal bleeding, and unusual bruising. 15:23 : Positive for small amounts. 15:23 Neuro: Positive for weakness. Exam: 15:23 Constitutional: This is a well developed, well nourished patient who is awake, alert, miladis and in no acute distress. Head/Face: Normocephalic, atraumatic. Eyes: Pupils equal round and reactive to light, extra-ocular motions intact. Lids and lashes normal. Conjunctiva and sclera are non-icteric and not injected. Cornea within normal limits. Periorbital areas with no swelling, redness, or edema. ENT: Nares patent. No nasal discharge, no septal abnormalities noted. Tympanic membranes are normal and external auditory canals are clear. Oropharynx with no redness, swelling, or masses, exudates, or evidence of obstruction, uvula midline. Mucous membranes moist. Neck: Trachea midline, no thyromegaly or masses palpated, and no cervical lymphadenopathy. Supple, full range of motion without nuchal rigidity, or vertebral point tenderness. No Meningismus. Chest/axilla: Normal chest wall appearance and motion. Nontender with no deformity. No lesions are appreciated. Cardiovascular: Regular rate and rhythm with a normal S1 and S2. No gallops, murmurs, or rubs. Normal PMI, no JVD. No pulse deficits. Respiratory: Lungs have equal breath sounds bilaterally, clear to auscultation and percussion. No rales, rhonchi or wheezes noted. No increased work of breathing, no retractions or nasal flaring. Abdomen/GI: Soft, non-tender, with normal bowel sounds. No distension or tympany. No guarding or rebound. No evidence of tenderness throughout. Back: No spinal tenderness. No costovertebral tenderness. Full range of motion. Skin: Warm, dry with normal turgor. Normal color with no rashes, no lesions, and no evidence of cellulitis. MS/ Extremity: Pulses equal, no cyanosis. Neurovascular intact. Full, normal range of motion. Neuro: Awake and alert, GCS 15, oriented to person, place, time, and situation. Cranial nerves II-XII grossly intact. Motor strength 5/5 in all extremities. Sensory grossly intact. Cerebellar exam normal. Normal gait. Psych: Awake, alert, with orientation to person, place and time. Behavior, mood, and affect are within normal limits. Vital Signs: 13:03 BP 134 / 70; Pulse 62; Resp 18; Temp 97.9(TE); Pulse Ox 100% on R/A; Weight 63.5 kg aj1 (R); Height 5 ft. 7 in. (170.18 cm) (R); Pain 0/10; 14:00 BP 160 / 63; Pulse 48; Resp 16; Temp 98.0(O); Pulse Ox 100% ; Pain 0/10; rb1 15:00 BP 144 / 59; Pulse 44; Resp 15; Temp 98.1; Pulse Ox 100% on R/A; Pain 0/10; rb1 15:30 BP 159 / 62; Pulse 47; Resp 16; Temp 98.7(O); Pulse Ox 100% on R/A; Pain 0/10; rb1 16:30 BP 149 / 61; Pulse 48; Resp 16; Temp 98.5(O); Pulse Ox 100% on R/A; Pain 0/10; rb1 17:30 BP 136 / 56; Pulse 51; Resp 15; Temp 98.2(O); Pulse Ox 100% on R/A; Pain 0/10; rb1 18:30 BP 140 / 58; Pulse 51; Resp 15; Temp 98.6(O); Pulse Ox 100% ; Pain 0/10; rb1 13:03 Body Mass Index 21.93 (63.50 kg, 170.18 cm) aj1 MDM: 13:20 Patient medically screened. 12/26 13:18 Order name: Basic Metabolic Panel 12/26 13:18 Order name: CBC with Diff 12/26 13:18 Order name: LFT's; Complete Time: 15:12 [facility] 12/26 13:18 Order name: Magnesium; Complete Time: 15:12 [facility] 12/26 13:18 Order name: NT PRO-BNP; Complete Time: 15:12 [facility] 12/26 13:18 Order name: PT-INR; Complete Time: 14:29 [facility] 12/26 13:18 Order name: Troponin (emerg Dept Use Only); Complete Time: 15:12 [facility] 12/26 13:18 Order name: Lipase; Complete Time: 15:12 [facility] 12/26 13:18 Order name: Urine Culture [facility] 12/26 13:19 Order name: Basic Metabolic Panel; Complete Time: 15:12 [facility] 12/26 13:19 Order name: CBC with Automated Diff; Complete Time: 15:12 [facility] 12/26 14:03 Order name: CK; Complete Time: 14:29 [facility] 12/26 14:03 Order name: Uric Acid; Complete Time: 14:29 [facility] 12/26 14:04 Order name: CBC Smear Scan; Complete Time: 15:12 [facility] 12/26 13:18 Order name: XRAY Chest (1 view); Complete Time: 14:29 [facility] 12/26 13:18 Order name: EKG; Complete Time: 13:20 [facility] 12/26 13:18 Order name: Cardiac monitoring; Complete Time: 15:00 [facility] 12/26 13:18 Order name: EKG - Nurse/Tech; Complete Time: 13:59 [facility] 12/26 13:18 Order name: IV Saline Lock; Complete Time: 13:59 [facility] 12/26 13:18 Order name: Labs collected and sent; Complete Time: 13:59 [facility] 12/26 13:18 Order name: O2 Per Protocol; Complete Time: 14:03 [facility] 12/26 13:18 Order name: US Rp Exam Complete; Complete Time: 14:29 [facility] 12/26 15:35 Order name: CONS Physician Consult [facility] 12/26 15:51 Order name: Diet Ada 1800 Ernst; Complete Time: 15:51 rb1 12/26 16:24 Order name: Glucose, Ancillary Testing [facility] 12/26 13:18 Order name: O2 Sat Monitoring; Complete Time: 14:03 [facility] 12/26 13:18 Order name: Urine Dipstick-Ancillary (obtain specimen); Complete Time: 13:59 [facility] Administered Medications: 14:03 Drug: NS 0.9% 1000 ml Route: IV; Rate: 75 ml/hr; Site: right antecubital; ss 18:40 Follow up: IV Status: Infusion continued upon admission rb1 15:45 Drug: Potassium Effervescent Tablet 25 mEq Route: PO; rb1 16:15 Follow up: Response: No adverse reaction rb1 15:45 Drug: Magnesium Sulfate 1 grams Route: IVPB; Infused Over: 1 hrs; Site: right rb1 antecubital; 16:48 Follow up: Response: No adverse reaction; IV Status: Completed infusion rb1 16:25 Drug: Potassium Effervescent Tablet 25 mEq Route: PO; rb1 16:48 Follow up: Response: No adverse reaction rb1 17:20 Drug: Magnesium Sulfate 1 grams Route: IVPB; Infused Over: 1 hrs; Site: right rb1 antecubital; 18:34 Follow up: Response: No adverse reaction; IV Status: Completed infusion rb1 Point of Care Testing: Blood Glucose: 16:24 Blood Glucose: 132 mg/dL; rb1 Ranges: Critical Glucose Levels:Adult <50 mg/dl or >400 mg/dl <40 mg/dl or >180 mg/dl Disposition: 12/26/18 15:28 Hospitalization ordered by Fercho Nicole for Inpatient Admission. Preliminary diagnosis are Volume depletion, Unspecified kidney failure, Hypomagnesemia, Hypokalemia, Weakness. - Bed requested for Telemetry/MedSurg (Inpatient). - Status is Inpatient Admission. rb1 - Condition is Fair. - Problem is new. - Symptoms have improved. UTI on Admission? No Signatures: Dispatcher [employer] EDGabriela Rushing RN RN aj1 Zelda Sykes RN RN dw Anderson, Corey, MD MD cha Smirch, Shelby, RN RN Latisha Infante RN RN rb1 Corrections: (The following items were deleted from the chart) 17:51 15:28 Hospitalization Ordered by Fercho Nicole MD for Inpatient Admission. Preliminary diagnosis is Volume depletion; Unspecified kidney failure; Hypomagnesemia; Hypokalemia; Weakness. Bed requested for Telemetry/MedSurg (Inpatient). Status is Inpatient Admission. Condition is Fair. Problem is new. Symptoms have improved. UTI on Admission? No. miladis 18:40 17:51 12/26/2018 15:28 Hospitalization Ordered by Fercho Nicole MD for Inpatient rb1 Admission. Preliminary diagnosis is Volume depletion; Unspecified kidney failure; Hypomagnesemia; Hypokalemia; Weakness. Bed requested for Telemetry/MedSurg (Inpatient). Status is Inpatient Admission. Condition is Fair. Problem is new. Symptoms have improved. UTI on Admission? No. dw
[2018-12-26] MEDS ORDERED: POTASSIUM 25 MEQ EFFERV TAB ONE ×2 (15:53→16:33)
[2018-12-26] MEDS ORDERED: MAGNESIUM SULFATE 1 gm IVPB 1 GM/100 ML BAG IV ONE ×2 (15:53→17:26)
[2018-12-26] MEDS ORDERED: ACETAMINOPHEN 500 MG TAB PO PRN (18:47)
[2018-12-26] MEDS ORDERED: ONDANSETRON 4 MG/2 ML VIAL IV PRN (18:47)
[2018-12-26] MEDS ORDERED: MORPHINE 4 MG/ML SYR IV PRN (18:47)
[2018-12-26 19:56] VITALS: BMI 21.9
[2018-12-26] MEDS: NA CHLORIDE 0.9% 1,000 ML IV SCH (20:05)
[2018-12-26 22:24] LABS: Urine Appearance CLEAR; Urine Bilirubin NEGATIVE (NEG); Urine Blood TRACE (NEG); Urine Color YELLOW; Urine Glucose NEGATIVE (NEG); Urine Protein TRACE (NEG); Urine Urobilinogen 0.2 mg/dL (0.2-1.0); Urine pH 5.5 (5.0-7.0)
[2018-12-26 22:28] LABS: Urine Microscopic Reflex ORDER UMIC
[2018-12-26 22:38] LABS: Urine Bacteria <20 /HPF (NONE SEEN); Urine Culture Reflex Order NOT NEEDED; Urine Mucus 1+ /HPF (NONE SEEN); Urine RBC NONE SEEN /HPF (NONE SEEN)
[2018-12-27 04:15] LABS: Absolute Lymphocytes (CBC) 0.9 K/uL (0.7-4.9); Absolute Monocytes 0.3 K/uL (0.1-1.3); Absolute Neutrophil 1.1 K/uL (1.8-8.0); Basophils % 0.4 % (0-1.3); Eosinophils % 3.6 % (0-4.4); Hematocrit 25.1 % (39.6-49.0); Lymphocytes % 37.7 % (15.3-44.8); Monocytes % 10.7 % (3.3-12.3); RBC Red Blood Cell Count 2.54 M/uL (4.33-5.43)
[2018-12-27 04:44] LABS: Magnesium 1.6 mg/dL (1.8-2.4); Potassium 3.3 mmol/L (3.5-5.1)
[2018-12-27] MEDS ORDERED: Magnesium Sulfate 2gm IVPB 2 G/50 ML BAG IV ONE (05:30)
[2018-12-27] MEDS: CALCIUM CARBONATE 500 MG TAB PO SCH ×3 (05:51→21:10)
[2018-12-27 06:11] LABS: Phosphorus 3.1 mg/dL (2.5-4.9)
--- NOTE | 2018-12-27 07:52 | EKG ---
Test Date: 2018-12-26 Test Time: 13:24:42 [employer] Supervisor: ADRI MEASUREMENT RESULTS: Intervals: Rate: 52 OK: 126 QRSD: 104 QT: 434 QTc: 403 [place]: P: 46 OK: 126 QRS: -16 T: 24 INTERPRETIVE STATEMENTS: Sinus bradycardia Otherwise normal ECG Compared to ECG 05/08/2018 11:51:28 Sinus rhythm no longer present Sinus arrhythmia no longer present Electronically Signed On 12-27-18 07:51:35 CDT by Willy Courtney
--- NOTE | 2018-12-27 08:38 | RAD REPORT ---
EXAM DESCRIPTION: RAD - Chest Single View - 12/27/2018 6:47 am CLINICAL HISTORY: Chest Pain Chest pain. COMPARISON: Chest Single View dated 12/26/2018; Chest Single View dated 01/15/2018; Chest Pa And Lat (2 Views) dated 03/30/2016 FINDINGS: Portable technique limits examination quality. The lungs are grossly clear. The heart is normal in size. No displaced fractures.Sternotomy wires. IMPRESSION: No acute intrathoracic process suspected.
[2018-12-27] MEDS: NA CHLORIDE 0.9% 1,000 ML IV SCH ×2 (08:52→21:10)
[2018-12-27] MEDS ORDERED: ASPIRIN EC 81 MG TAB PO SCH (09:00)
--- NOTE | 2018-12-27 10:53 | EKG ---
Test Date: 2018-12-27 Test Time: 07:36:39 [employer] Operator: ADRI MEASUREMENT RESULTS: Intervals: Rate: 56 NH: 130 QRSD: 94 QT: 448 QTc: 432 [place]: P: 74 NH: 130 QRS: -24 T: 23 INTERPRETIVE STATEMENTS: Sinus bradycardia Otherwise normal ECG Compared to ECG 12/26/2018 13:24:42 No significant changes Electronically Signed On 12-27-18 10:52:06 CDT by Willy Courtney
[2018-12-27] MEDS: CALCITROL 0.25 MCG CAP PO SCH (12:05)
[2018-12-27] MEDS ORDERED: D50W 25 GM/50 ML SYRINGE IV PRN (22:22)
[2018-12-27] MEDS ORDERED: GLUCAGON 1 MG/VIAL IM PRN (22:22)
--- NOTE | 2018-12-28 03:35 | CON ---
Date of Consultation: 12/27/2018 Reason For Consultation: Elevated BUN and creatinine, fluid management. History Of Present Illness: This is a pleasant 83-year-old gentleman, well known to me from the [facility] with significant past medical history of hypertension, hyperlipidemia, chronic kidney disease, bas woody creatinine 1.6 to 1.8 secondary to diabetes nephropathy, diabetes, coronary artery disease. Th e patient had acute kidney injury before secondary to cardiorenal. The patient came to my office for followup, found to have elevation in BUN and creatinine. Creatinine jumped to 3.3. The patient was completely asymptomatic. No nausea. No vomiting. On previous visit, we decreased his Lasix, but a pparently, his kidney function continued to worsen. For that reason, the patient was directed for [facility] admission. In the hospital, workup including renal ultrasound was negative. The patient over the night started on IV hydration. Kidney function is slightly better. The patient denied any shor tness of breath. Lasix has been discontinued. Past Medical History: Includes: 1.Diabetes complicated with neuropathy, no retinopathy. 2.Coronary artery disease complicated with congestive heart failure. 3.Hypertension. 4.Chronic kidney disease stage 3b. Baseline creatinine 1.6 to 1.8. Allergies: NO KNOWN DRUG ALLERGY. Family History: Positive for cancer. Social History: Denied smoking. Denied drinking. Denied drug abuse. Review of Systems: Head and Neck: No red eye. No ear pain. GI: No nausea, no vomiting. : No polyuria, no dysuria, no hematuria. Upholstery Sewer: Not applicable. Respiratory: No shortness of breath. Cardiovascular: No chest pain. Endocrine: No polydipsia. Skin: No rash. Neuro: No pain. No numbness. Musculoskeletal: No low back pain and no muscle pain. Home Medications: Include: 1.Prednisone. 2.Flomax. 3.Metoprolol 25 daily. 4.Levothyroxine. 5.Glimepiride. 6.Lasix 20 daily. 7.Finasteride. 8.Atorvastatin. 9.Aspirin. Current medications in the hospital include aspirin, atorvastatin, insulin, metoprolol, morphine, and IV fluid. Physical Examination: Vital Signs: When I saw the patient, blood pressure of 149/66, pulse of 53, afebrile. The patient h ad good urine output, voiding. Chest: Clear to auscultation. Heart: S1, S2. Regular. Abdomen: Soft, nontender. Extremities: No edema. Neuro: Alert and oriented x3. Nonfocal. Laboratory Data: On admission, H and H 9.3/23.8. Sodium 145, potassium 3, bicarb 19, BUN 38, creati nine of 3, calcium 6.4, magnesium 1.1, TSAT of 44. Ferritin of 488. Today lab data shows sodium 147 , potassium 3.3, bicarb 20, BUN 40, creatinine down to 2.7, GFR of 22, calcium 6.3, phosphorus 3.1, m agnesium 1.6. PTH of 317. Urinalysis; specific gravity of 1.010, negative for infection. Chest x-r ay: No congestion. Renal ultrasound did not show any hydronephrosis, 9/8 cm, cortical thinning. Assessment And Plan: 1.Acute kidney injury secondary to prerenal, secondary to overdiuresis, looked to me still on the dr y side. I am going to go ahead and continue IV fluid. Keep holding diuresis, and we will monitor th e patient. 2.Hypertension, controlled, optimal. Continue current treatment. Keep holding the Lasix. 3.Coronary artery disease, congestive heart failure. The patient is still on the dry side. Keep holding the Lasix. 4.Diabetes as by primary. TAYO/KEYLA Voice ID: [id number] Report ID: [id number]
--- NOTE | 2018-12-28 06:11 | HP ---
Date of Admission: 12/26/2018 Chief Complaint: Worsening of renal failure. History Of Present Illness: An 83-year-old male who has chronic renal insufficiency. He is being fo llowed by Dr. Garnett. The patient was sent by Nephrology Service to the ER because of rising creat inine and dehydration. The patient after evaluation in the emergency room was admitted to the floor. The patient had weakness, fatigue as symptoms. Past Medical History: Positive for type 2 diabetes, hypertension, hypothyroidism, chronic renal insu fficiency. Home Medicines: Please refer to the chart. Allergies: NONE. Review of Systems: No chest pain. Physical Examination: General: Revealed an 83-year-old male, alert for his age. HEENT: Negative. Neck: Supple. JVD negative. Chest: Clear. Heart: Regular. Abdomen: Soft. Extremities: No edema. Laboratory Data: White count 2.6, hemoglobin 9.3. Chem profile: BUN 40, creatinine 2.75, troponin normal. Assessment: 1.Acute on chronic renal failure. 2.Type 2 diabetes. 3.Hypertension. 4.Hypothyroidism. Plan: IV fluids. Follow the renal function. SAM/KEYLA Voice ID: [id number]
[2018-12-28] MEDS: PANTOPRAZOLE 40MG TABLET PO SCH (06:51)
[2018-12-28] MEDS: INSULIN -REGULAR HUMAN 50 UNIT/0.5 ML ML SQ SCH ×4 (07:30→21:00)
[2018-12-28] MEDS: ASPIRIN EC 81 MG TAB PO SCH (08:21)
[2018-12-28] MEDS: FINASTERIDE 5 MG TAB PO SCH (08:21)
[2018-12-28] MEDS: CALCIUM CARBONATE 500 MG TAB PO SCH ×3 (08:21→22:40)
[2018-12-28] MEDS: LEVOTHYROXINE SOD 0.025 MG TAB PO SCH (08:21)
[2018-12-28] MEDS: METOPROLOL XL 25 MG TAB PO SCH (08:22)
[2018-12-28] MEDS ORDERED: predniSONE 5 MG TAB PO SCH (09:00)
[2018-12-28] MEDS ORDERED: ATORVASTATIN 40 MG TAB PO SCH ×2 (09:00→21:00)
[2018-12-28] MEDS: NA CHLORIDE 0.9% 1,000 ML IV SCH ×2 (12:28→22:39)
--- NOTE | 2018-12-28 13:25 | P.PN ---
Subjective Date of Service: 12/28/18 Subjective: Improving Cr slightly improved will get CMP today cont IVF for now replace electrolytes prn Physical Examination - Vital Signs Temperature: 97.2 F Blood Pressure: 148/63 Pulse: 60 Respirations: 20 Pulse Ox (%): 98 - Physical Exam General: In no apparent distress, Oriented x3 HEENT: Atraumatic Neck: Supple, Without JVD or thyroid abnormality Respiratory: Clear to auscultation bilaterally Cardiovascular: No edema, Normal pulses, Regular rate/rhythm Gastrointestinal: Normal bowel sounds, Soft and benign - Studies Microbiology Data (last 24 hrs): 12/26/18 13:55 Clean Catch Urine Oliver Count - Final 12/26/18 13:55 Clean Catch Urine - Final No growth. Assessment And Plan - Current Problems (Diagnosis) (1) MARSHALL (acute kidney injury) Current Visit: Yes Status: Acute - Plan Acute kidney injury secondary to prerenal, baseline Cr ~1.8 in ER Cr 3.0 likely due to prerenal azotemia US: echogenic kidneys Hypertension, controlled pancytopenia stable Diabetes as by primary. as per primary Hypokalemia , hypomagnesemia replace prn
[2018-12-28 13:34] LABS: Albumin 2.8 g/dL (3.4-5.0); Bilirubin Total 0.3 mg/dL (0.2-1.0); Potassium 3.9 mmol/L (3.5-5.1); Protein, Total 6.3 g/dL (6.4-8.2)
[2018-12-28] MEDS ORDERED: TAMSULOSIN 0.4 MG SR CAP PO SCH (21:00)
--- NOTE | 2018-12-28 23:12 | PN ---
The patient is doing better. He is ambulating in the room. His BUN and creatinine are down. Pendin pankaj Nephrology recommendations, the patient will continue to receive IV fluids. SAM/KEYLA Voice ID: [id number] Report ID: [id number]
[2018-12-29] MEDS: NA CHLORIDE 0.9% 1,000 ML IV SCH (00:07)
[2018-12-29 06:20] LABS: Albumin 2.6 g/dL (3.4-5.0); Bilirubin Total 0.3 mg/dL (0.2-1.0); Potassium 3.3 mmol/L (3.5-5.1); Protein, Total 5.6 g/dL (6.4-8.2)
[2018-12-29] MEDS: INSULIN -REGULAR HUMAN 50 UNIT/0.5 ML ML SQ SCH ×2 (07:30→11:30)
[2018-12-29] MEDS: PANTOPRAZOLE 40MG TABLET PO SCH (08:48)
[2018-12-29] MEDS: FINASTERIDE 5 MG TAB PO SCH (08:48)
[2018-12-29] MEDS: METOPROLOL XL 25 MG TAB PO SCH (08:48)
[2018-12-29] MEDS: ASPIRIN EC 81 MG TAB PO SCH (08:49)
[2018-12-29] MEDS: LEVOTHYROXINE SOD 0.025 MG TAB PO SCH (08:49)
[2018-12-29] MEDS: CALCIUM CARBONATE 500 MG TAB PO SCH (08:49)
[2018-12-29 08:51] VITALS: BP 118/61
[2018-12-29 09:24] VITALS: TEMP 97.5
[2018-12-29 10:10] VITALS: O2SAT 100
[2018-12-29] MEDS: CALCITROL 0.25 MCG CAP PO SCH (11:00)
[2018-12-29] MEDS ORDERED: POTASSIUM 25 MEQ EFFERV TAB PO ONE (11:27)
--- NOTE | 2018-12-29 12:05 | P.PN ---
Subjective Date of Service: 12/29/18 Subjective: Improving Cr cont to improve will replace K cleared for discharge from nephrology point of view Physical Examination - Vital Signs Temperature: 97.5 F Blood Pressure: 118/61 Pulse: 69 Respirations: 24 Pulse Ox (%): 98 - Physical Exam General: In no apparent distress, Oriented x3 HEENT: Atraumatic Neck: Supple, Without JVD or thyroid abnormality Respiratory: Clear to auscultation bilaterally Cardiovascular: No edema, Regular rate/rhythm, Normal S1 S2 Gastrointestinal: Normal bowel sounds, Soft and benign Assessment And Plan - Current Problems (Diagnosis) (1) MARSHALL (acute kidney injury) Status: Acute - Plan Acute kidney injury secondary to prerenal, baseline Cr ~1.8 in ER Cr 3.0 and down to 2.1 likely due to prerenal azotemia US: echogenic kidneys Hypertension, controlled pancytopenia stable Diabetes as by primary. as per primary Hypokalemia , hypomagnesemia replace prn
[2019-01-01 12:07] LABS: Vitamin D 1,25-Dihydroxy Total 25 pg/mL (18-72); Vitamin D,1,25-OH2, D2 <8 pg/mL
--- NOTE | 2019-01-10 05:12 | DS ---
Date of Discharge: 12/29/2018 Final Diagnoses: 1.Kzmme-tk-swpaemp renal failure. 2.Known congestive heart failure. 3.Hypertension. 4.Hypothyroidism. 5.Type 2 diabetes. Hospital Course: This patient was sent by Renal Service to ER because of worsening of his renal func tion. The patient after evaluation in the emergency room was given IV fluids to improve the renal fu nction. The patient's ultrasound did not show any evidence of obstruction. The patient showed impro vement of his renal function over the next few days with IV hydration. The patient was discharged ho wi with advice to follow up in the office. Laboratory Data: White count 2.6, hemoglobin 9.3, BUN 40, creatinine 2.7. RRK/MODL Voice ID: [id number] Report ID: [id number]
== END 2018-12-29 11:52 | disposition home or self-care (01) | DRG 683 ==
LOC: ER 12:40 → ERHOLD 15:30 → 4TH 18:33
PROVIDERS: ADMIT Internal Medicine; ATTEND Internal Medicine
DX: N17.9 Acute kidney failure, unspecified (principal); I13.0 Hypertensive heart and chronic kidney disease with heart failure and stage 1 through stage 4 chronic kidney disease, or unspecified chronic kidney disease; D61.818 Other pancytopenia; E11.22 Type 2 diabetes mellitus with diabetic chronic kidney disease; E86.0 Dehydration; E11.21 Type 2 diabetes mellitus with diabetic nephropathy; N18.3 Chronic kidney disease, stage 3 (moderate); I50.9 Heart failure, unspecified; E03.9 Hypothyroidism, unspecified; I25.10 Atherosclerotic heart disease of native coronary artery without angina pectoris; E87.6 Hypokalemia; E83.42 Hypomagnesemia; Z79.82 Long term (current) use of aspirin; Z79.52 Long term (current) use of systemic steroids
CPT/HCPCS: 36415; 71045; 76770; 80048; 80053; 80076; 81003; 81015; 82550; 82652; 82962; 83690; 83735; 83880; 83970; 84100; 84484; 84550; 85025; 85610; 87086; 87088; 93005; 96361; 96365; 96366; 99285; J3475; J7030; J7512

== ENCOUNTER 2019-01-17 15:47 | Inpatient (IN) | payer OTHER ==
--- OUTSIDE RECORDS SUMMARY | 2019-01-17 16:07 | XMS REPORT | Clinical Summary ---
:1935 Author Organization [facility] Address [address] [place] [address] Care Team Providers Name Role Phone Fercho [...] and Alireza Hamlin Oncology MD Anibal after 01/16/2018 Social History Tobacco Use Types Packs/Day Years Used Date Never Assessed Sex Assigned at Date Recorded Not on file Job Start Date Occupation Industry Not on file Not on file Not on file Travel History Travel Start Travel End No recent travel history available. Last Filed Vital Signs Vital Sign Reading Time Taken Blood Pressure 149/66 07/26/2018 2:15 PM [employer] Pulse 77 07/26/2018 2:15 PM [employer] Temperature 37.1 C (98.7 F) 07/26/2018 2:15 PM [employer] Respiratory Rate 18 07/26/2018 2:15 PM [employer] Oxygen Saturation 100% 07/26/2018 2:15 PM [employer] Inhaled Oxygen Concentration - - Weight 135 kg (297 lb 6.4 oz) 07/26/2018 2:15 PM [employer] Height 162.6 cm (5' 4") 07/26/2018 2:15 PM [employer] Body Mass Index 51.05 07/26/2018 2:15 PM [employer] Plan of Treatment Health Maintenance Due Date Last Done Comments SHINGLES VACCINES (#1) 1986 65+ PNEUMOCOCCAL VACCINE (1 of 2 - PCV13) 2001 PNEUMOCOCCAL POLYSACCHARIDE VACCINE AGE 65 AND OVER 2001 INFLUENZA VACCINE 03/15/2019 Procedures Procedure Name Priority Date/Time Associated Comments Diagnosis ERYTHROPOIETIN STAT 07/26/2018 3:09 MDS Results for this PM [employer] (myelodysplastic procedure are in syndrome) ([facility]) the results section. HC COMPLETE BLD COUNT STAT 07/26/2018 3:09 MDS Results for this W/AUTO DIFF PM [employer] (myelodysplastic procedure are in syndrome) ([facility]) the results section. after 01/16/2018 Results Erythropoietin (07/26/2018 3:09 PM [employer]) Erythropoietin 38.3 (H) 2.6 - 18.5 mIU/mL [facility] Specimen Serum Performing Organization Address City/State/Zipcode Phone Number [facility] DEPARTMENT OF PATHOLOGY AND [address] [place] [address] GENOMIC MEDICINE [facility] [address] [place] [id number] CBC with platelet and differential (07/26/2018 3:09 PM [employer]) WBC 2.03 (L) 4.50 - 11.00 [facility] k/uL [facility] RBC 2.37 (L) 4.40 - 6.00 [facility] m/[facility] HGB 7.7 (L) 14.0 - 18.0 [facility] g/dL [facility] HCT 23.7 (L) 41.0 - 51.0 % [facility] MCV 100.0 82.0 - 100.0 [facility] MCH 32.5 27.0 - 34.0 pg [facility] MCHC 32.5 31.0 - 37.0 [facility] RDW - SD 63.1 (H) 37.0 - 55.0 fL [facility] MPV 10.7 8.8 - 13.2 fL [facility] Platelet count 128 (L) 150 - 400 k/uL [facility] Nucleated RBC 0.00 /100 WBC [facility] Neutrophils 54.1 39.0 - 69.0 % [facility] Lymphocytes 29.6 25.0 - 45.0 % [facility] Monocytes 11.3 (H) 0.0 - 10.0 % [facility] Eosinophils 2.0 0.0 - 5.0 % [facility] Basophils 0.5 0.0 - 1.0 % [facility] Immature granulocytes 2.5 0.0 - 1.0 % [facility] (H)Comment: HOSPITAL "Immature granulocytes" (promyelocytes , myelocytes, metamyelocytes ) Specimen Blood Performing Organization Address City/State/Zipcode Phone Number [facility] DEPARTMENT OF PATHOLOGY AND [address] [place] [phone] GENOMIC MEDICINE [address] [address] after 01/16/2018 Advance Directives Patient has advance care planning documents on file. For more information, please contact:[address] [address]
[2019-01-17 17:18] LABS: Urine Appearance CLEAR; Urine Bilirubin NEGATIVE (NEG); Urine Blood 1+ (NEG); Urine Color YELLOW; Urine Glucose TRACE (NEG); Urine Protein 1+ (NEG); Urine Urobilinogen 0.2 mg/dL (0.2-1.0); Urine pH 5.5 (5.0-7.0)
[2019-01-17 17:20] LABS: Urine Microscopic Reflex ORDER UMIC
[2019-01-17 17:31] LABS: Urine Bacteria NONE SEEN /HPF (NONE SEEN); Urine Culture Reflex Order NOT NEEDED; Urine RBC NONE SEEN /HPF (NONE SEEN)
[2019-01-17] MEDS ORDERED: GLUCAGON 1 MG/VIAL IM PRN (17:43)
[2019-01-17] MEDS ORDERED: D50W 25 GM/50 ML SYRINGE IV PRN (17:43)
[2019-01-17] MEDS: INSULIN -REGULAR HUMAN 50 UNIT/0.5 ML ML SQ SCH (21:00)
[2019-01-17] MEDS: FINASTERIDE 5 MG TAB PO SCH (21:55)
[2019-01-17] MEDS: TAMSULOSIN 0.4 MG SR CAP PO SCH (21:55)
[2019-01-17] MEDS: ATORVASTATIN 40 MG TAB PO SCH (21:55)
[2019-01-17] MEDS ORDERED: NA CHLORIDE 0.9% 1,000 ML IV SCH (22:00)
[2019-01-17 22:08] LABS: CKMB Creatine Kinase MB 6.4 ng/mL (0.3-3.6); Uric Acid 6.7 mg/dL (3.5-7.2)
[2019-01-17 23:24] LABS: Arterial Blood Carboxyhemoglob 1.3 % (0-1.5); Blood Gas Oxyhemoglobin 95.8 % (94-97); Blood O2 Saturation 97.7 % (92-98.5)
[2019-01-18] MEDS ORDERED: CALCIUM CARBONATE CHEW 500MG TAB PO ONE
[2019-01-18 06:55] LABS: UR MICROALBUMIN 3.5 mg/dL (< 1.9)
[2019-01-18] MEDS ORDERED: LEVOTHYROXINE SOD 0.025 MG TAB PO SCH (07:30)
[2019-01-18] MEDS: PANTOPRAZOLE 40MG TABLET PO SCH (07:51)
[2019-01-18] MEDS: ASPIRIN EC 81 MG TAB PO SCH (07:51)
[2019-01-18] MEDS: METOPROLOL XL 25 MG TAB PO SCH (07:51)
[2019-01-18] MEDS: CALCIUM CARBONATE CHEW 500MG TAB PO SCH ×3 (07:52→20:46)
[2019-01-18] MEDS: predniSONE 5 MG TAB PO SCH (07:52)
[2019-01-18] MEDS: INSULIN -REGULAR HUMAN 50 UNIT/0.5 ML ML SQ SCH ×4 (08:04→20:43)
[2019-01-18] MEDS ORDERED: CALCIUM GLUC 10% INJ 4.65 MEQ in NA CHLORIDE 0.9% 100 ML IV ONE (12:08)
--- NOTE | 2019-01-18 12:52 | P.CNS ---
Date of Consult: 01/18/19 Reason for Consult: MARSHALL Chief Complaint: sent from nephrology office for MARSHALL History of Present Illness: AN 83-year-old man, With PMhx of hypertension, hyperlipidemia, chronic kidney disease, baseline creatinine 1.6 to 1.8 DM with nephropathy, and CAD pt was admitted recently for MARSHALL due to overdiuresis, Cr improved to 2.1 on discharge, pt was off lasix presented yesterday to Dr Barbosa office Cr was up to 3.3 denied NSAID, contrast or new medicine intake denied chest pain, palpitation, nausea vomiting or diarrhea Cr improved to 2.7 on IVF Allergies No Known Allergies Allergy (Verified 01/14/18 23:39) Home Medications: Aspirin [Aspir-Low] 81 mg PO DAILY 01/14/18 Atorvastatin Calcium 40 mg PO DAILY 01/14/18 Levothyroxine [Synthroid*] 25 mcg PO DAILY 01/14/18 Metoprolol Succinate [Toprol Xl*] 25 mg PO DAILY 01/14/18 Pantoprazole Sodium 40 mg PO DAILY 01/14/18 Tamsulosin HCl [Flomax] 0.4 mg PO BEDTIME 01/14/18 Glimepiride 1 mg PO BEDTIME 12/26/18 predniSONE [Prednisone*] 5 mg PO SEECOM 12/26/18 Finasteride [Proscar*] 1 tab PO BEDTIME 01/17/19 - Past Medical/Surgical History Diabetic: Yes -: HTN -: NIDDM -: Inflammation of the Pancreas -: Hypothyroidism -: Kidney Insufficiency -: Gout -: Double Bypass - Family History Mother Medical History: Cancer Notes: Stomach Cancer Father Notes: Heart Attack - Social History Alcohol use: No CD- Drugs: No Caffeine use: Yes Place of Residence: Home Physical Examination Temp Pulse Resp BP Pulse Ox 97.0 F 56 16 128/55 L 100 01/18/19 12:00 01/18/19 12:00 01/18/19 12:00 01/18/19 12:00 01/18/19 12:00 General: In no apparent distress, Oriented x3 HEENT: Atraumatic Neck: Supple, JVD not distended, Without JVD or thyroid abnormality Respiratory: Clear to auscultation bilaterally, Normal air movement Cardiovascular: No edema, Normal pulses, Regular rate/rhythm, Normal S1 S2 Gastrointestinal: Normal bowel sounds, Soft and benign Musculoskeletal: No swelling Integumentary: No rashes External genitalia: No edema Laboratory Data (last 24 hrs) 01/17/19 21:32: Sodium 146 H, Potassium 4.0, BUN 38 H, Creatinine 2.79 H, Glucose 210 H, Uric Acid 6.7 - Problems (1) MARSHALL (acute kidney injury) Current Visit: Yes Status: Acute Conclusions/Impression: Acute kidney injury secondary to prerenal, baseline Cr ~1.8 Cr 3.2 on 01/12 and now down to 2.7 likely due to prerenal azotemia F/u renal US minimal proteinuria Metabolic acidosis likely due to MARSHALL will change fluid to R/L will reduce bicarb to Bid Hypertension, controlled pancytopenia stable will check Hb tomorrow Diabetes as by primary. as per primary Hypocalcemia low albumin will replace will start on Vit D
[2019-01-18] MEDS: Ringers Lactate 1,000 ML IV SCH (13:01)
--- NOTE | 2019-01-18 14:01 | RAD REPORT ---
EXAM DESCRIPTION: US - Renal Ultrasound-Complete - 01/18/2019 1:54 pm CLINICAL HISTORY: Acute renal insufficiency COMPARISON: December 26, 2018 FINDINGS: The right kidney measures 10 cm with an increased echotexture. The left kidney measures 9 cm with an increased echotexture. Left renal cortical thinning Hydronephrosis is not seen. No gross abnormality of bladder is seen IMPRESSION: Increased renal echotexture consistent with parenchymal disease No hydronephrosis
--- NOTE | 2019-01-18 19:02 | HP ---
Date of Admission: 01/17/2019 Chief Complaint: Worsening of renal failure. History Of Present Illness: An 83-year-old male was admitted directly by Dr. Garnett because of wor sening of renal failure. The patient claims that he was feeling weak and tired. Past Medical History: Is extensive, includes history of chronic renal failure, history of hypothyroi dism, hypertension, type 2 diabetes, history of gout. Past Surgical History: Positive for coronary bypass surgery. Family History: Positive for heart disease, gastric cancer. Allergies: NONE. Medicines: Please refer to the chart. Review of Systems: The patient denied any fever, chills, rigors. Physical Examination: General: Revealed an 83-year-old male, alert for his age. Vital Signs: Normal. HEENT: Negative. Neck: Supple. JVD negative. Chest: Old surgical scar, otherwise negative. Heart: Occasional irregularity noted. Abdomen: Soft. Extremities: No edema. Laboratory Data: Blood gases; pH 7.29, pCO2 26. Chem profile; BUN 38, creatinine 2.7, GFR 22, calci um 6.0, PTH 186. Assessment: 1.Acute on chronic renal failure. 2.Type 2 diabetes. 3.Hypertension. 4.Hypothyroidism. 5.Known carotid artery disease. 6.Hypocalcemia. 7.Metabolic acidosis related to renal failure. Plan: IV fluids. Restart his home medications. Nephrology consultation has done. SAM/KEYLA Voice ID: [id number]
[2019-01-18] MEDS: SODIUM BICARB 325 MG TAB PO SCH (20:44)
[2019-01-18] MEDS: TAMSULOSIN 0.4 MG SR CAP PO SCH (20:44)
[2019-01-18] MEDS: ATORVASTATIN 40 MG TAB PO SCH (20:45)
[2019-01-18] MEDS: FINASTERIDE 5 MG TAB PO SCH (20:45)
[2019-01-18] MEDS ORDERED: SODIUM BICARB 325 MG TAB PO SCH (21:00)
[2019-01-19] MEDS: LEVOTHYROXINE SOD 0.025 MG TAB PO SCH (06:16)
[2019-01-19] MEDS: INSULIN -REGULAR HUMAN 50 UNIT/0.5 ML ML SQ SCH ×4 (07:30→20:56)
[2019-01-19 07:39] LABS: Absolute Lymphocytes (CBC) 0.9 K/uL (0.7-4.9); Absolute Monocytes 0.2 K/uL (0.1-1.3); Basophils % 0.5 % (0-1.3); Hematocrit 22.1 % (39.6-49.0); Lymphocytes % 40.6 % (15.3-44.8); MPV 10.1 fL (7.6-11.3); Monocytes % 9.7 % (3.3-12.3); RBC Red Blood Cell Count 2.23 M/uL (4.33-5.43)
[2019-01-19 08:24] LABS: Albumin 2.4 g/dL (3.4-5.0); Bilirubin Total 0.2 mg/dL (0.2-1.0); Potassium 3.3 mmol/L (3.5-5.1); Protein, Total 5.5 g/dL (6.4-8.2)
[2019-01-19] MEDS: SODIUM BICARB 325 MG TAB PO SCH ×2 (08:40→20:55)
[2019-01-19] MEDS: METOPROLOL XL 25 MG TAB PO SCH (08:41)
[2019-01-19] MEDS: CALCIUM CARBONATE CHEW 500MG TAB PO SCH ×3 (08:41→20:55)
[2019-01-19] MEDS: ASPIRIN EC 81 MG TAB PO SCH (08:41)
[2019-01-19] MEDS: VITAMIN D 1000 UNIT TAB PO SCH (08:41)
[2019-01-19] MEDS: PANTOPRAZOLE 40MG TABLET PO SCH (08:42)
[2019-01-19] MEDS: Ringers Lactate 1,000 ML IV SCH (09:00)
--- NOTE | 2019-01-19 09:27 | P.PN ---
Subjective Date of Service: 01/19/19 Chief Complaint: sent from nephrology office for MARSHALL Subjective: Improving Pt with MARSHALL , recently admitted for marshall due to prerenal azotemia , lasix dc Today Cr improving Na elevated , will change fluid to 1/2 NS will replace K will give 2 gm Ca gluconate , corrected Ca ~7.4 will transfuse 1 PRBC tomorrow will need hematology evelaution as an OP for pancytopenia Physical Examination - Vital Signs Temperature: 97.3 F Blood Pressure: 140/56 Pulse: 64 Respirations: 18 Pulse Ox (%): 97 - Physical Exam General: In no apparent distress, Oriented x3 HEENT: Atraumatic Neck: Supple, Without JVD or thyroid abnormality Respiratory: Clear to auscultation bilaterally Cardiovascular: No edema, Normal pulses, Regular rate/rhythm, No gallops, No rubs, No murmurs Gastrointestinal: Normal bowel sounds, Soft and benign, Non-distended Musculoskeletal: No swelling, No erythema Integumentary: No rashes - Studies Laboratory Data (last 24 hrs) 01/19/19 07:14: Sodium 149 H, Potassium 3.3 L, BUN 30 H, Creatinine 2.49 H, Glucose 76, Total Bilirubin 0.2, AST 10 L, ALT 16, Alkaline Phosphatase 85 01/19/19 07:14: WBC 2.2 L, Hgb 7.3 L*, Hct 22.1 L, Plt Count 110 L Assessment And Plan - Current Problems (Diagnosis) (1) MARSHALL (acute kidney injury) Current Visit: Yes Status: Acute - Plan Acute kidney injury secondary to prerenal, baseline Cr ~1.8 Cr 3.2 on 01/12 and now down to 2.4 due to prerenal azotemia renal US: no hydro , echogenic kidneys minimal proteinuria Metabolic acidosis likely due to MARSHALL Improving cont po bicarb Hypertension, controlled pancytopenia hematology evaluation as an OP 1 PRBC tomorrow Diabetes as by primary. as per primary
[2019-01-19] MEDS ORDERED: CALCIUM GLUC 10% INJ 9.3 MEQ in NA CHLORIDE 0.9% 100 ML IV ONE (09:49)
[2019-01-19] MEDS ORDERED: POTASSIUM CL SA 10 MEQ TAB PO ONE (09:49)
[2019-01-19] MEDS: NACHLORIDE 0.45% 1,000 ML IV SCH (10:21)
[2019-01-19 11:32] LABS: Blood Morphology Comment NOTED (NOT SEEN); Platelet Estimate ADEQ; Urine White Blood Cell Casts OK
[2019-01-19 11:33] LABS: Anisocytosis 1+; Ovalocytes 1+
[2019-01-19] MEDS: FINASTERIDE 5 MG TAB PO SCH (20:55)
[2019-01-19] MEDS: TAMSULOSIN 0.4 MG SR CAP PO SCH (20:56)
[2019-01-19] MEDS: ATORVASTATIN 40 MG TAB PO SCH (20:56)
--- NOTE | 2019-01-19 21:24 | PN ---
The patient doing better. His creatinine clearance is better. The patient is due to receive packed RBCs for his anemia. Pending that the patient will be continued on the same management. SAM/KEYLA Voice ID: [id number] Report ID: [id number]
[2019-01-20] MEDS: NACHLORIDE 0.45% 1,000 ML IV SCH (05:35)
[2019-01-20] MEDS: LEVOTHYROXINE SOD 0.025 MG TAB PO SCH (05:36)
[2019-01-20] MEDS: INSULIN -REGULAR HUMAN 50 UNIT/0.5 ML ML SQ SCH ×4 (07:30→19:59)
[2019-01-20] MEDS: predniSONE 5 MG TAB PO SCH (08:46)
[2019-01-20] MEDS: VITAMIN D 1000 UNIT TAB PO SCH (08:46)
[2019-01-20] MEDS: SODIUM BICARB 325 MG TAB PO SCH ×2 (08:46→19:59)
[2019-01-20] MEDS: PANTOPRAZOLE 40MG TABLET PO SCH (08:46)
[2019-01-20] MEDS: ASPIRIN EC 81 MG TAB PO SCH (08:46)
[2019-01-20] MEDS: METOPROLOL XL 25 MG TAB PO SCH (08:47)
[2019-01-20] MEDS: CALCIUM CARBONATE CHEW 500MG TAB PO SCH ×3 (08:47→20:00)
[2019-01-20] MEDS ORDERED: NA CHLORIDE 0.9% 250 ML ONE (10:27)
[2019-01-20 16:42] LABS: Hematocrit 27.1 % (39.6-49.0)
[2019-01-20] MEDS: ATORVASTATIN 40 MG TAB PO SCH (19:59)
[2019-01-20] MEDS: FINASTERIDE 5 MG TAB PO SCH (19:59)
[2019-01-20] MEDS: TAMSULOSIN 0.4 MG SR CAP PO SCH (20:00)
[2019-01-21] MEDS: NACHLORIDE 0.45% 1,000 ML IV SCH ×3 (02:00→14:00)
--- NOTE | 2019-01-21 02:56 | PN ---
The patient's posttransfusion hemoglobin is 9.1. The patient tolerated the transfusion very well. H is lungs are clear. The patient is scheduled for Chem profile in a.. SAM/KEYLA Voice ID: [id number] Report ID: [id number]
--- NOTE | 2019-01-21 03:40 | PN ---
Date of Progress Note: 01/20/2019 Chief Complaint: Abnormal renal function test, chronic kidney disease, acute kidney injury. History Of Present Illness: The patient is an 83-year-old man with past medical history of hypertension, hyperlipidemia, chronic kidney disease stage 3 , baseline creatinine level 1.6-1.8. History of diabetes mellitus with diabetic nephropathy, coronary artery disease. He was admitted recently to the hospital for acute kidney injury due to over-diuresis. Creatinine improved to 2.1 upon discharge and the patient was taken off Lasix. The patient when presented to the office was found to have creatinine of 3.3. He denies nonsteroidal anti-inflammatory medication, contrast procedures. He denies nausea, vomiting. Creatinine level improved to 2.7 with IV fluids. The patient today denies fever, chills. Physical Examination: Lungs: Few crackles at bases. Heart: S1, S2. Abdomen: Soft, benign. Extremities: No edema. Laboratory Data: Blood work showed creatinine of 2.4 and BUN 30, sodium 149, potassium 3.3, chloride 121, calcium 6.3, albumin 2.4. Intact PTH, 25-hydroxy vitamin D level are pending. The patient was found to have moderately severe dvxwg-je-bjvqgzc kidney injury. Urine output is ranging from 1200 to 2100 associated with prerenal azotemia. Lab work revealed anemia. The patient received blood transfusion, hemoglobin level improved from 7.3 to 9.1, platelet count is 110,000, and WBC is 2.2. The patient has pancytopenia. Impression And Plan: 1. Acute kidney injury, hypovolemia. The patient was found to have moderately severe ubvbn-dc-xlymecz kidney injury. Urine output is ranging from 1200 to 2100 associated with prerenal azotemia.Continue IV fluids. The patient was found to have 1+ protein and microalbumin creatinine ratio is 116.7. Recommend to check for urine protein electrophoresis to screen for monoclonal gammopathy of unknown significance. In view of thrombocytopenia, plan is to check LDH. Proteinuria is of mild degree, it may correspond with hypertensive kidney disease and diabetic kidney disease. The patient has history of diabetic nephropathy, was diagnosed previously with chronic kidney disease stage 3. 2. Anemia. The patient received blood transfusion. Monitor hemoglobin level and plan further treatment. The patient received blood transfusion, hemoglobin level improved from 7.3 to 9.1, platelet count is 110,000, and WBC is 2.2. The patient has pancytopenia. Recommend hematology consultation. 3. History of gout. The patient currently is asymptomatic. OSKAR/KEYLA Voice ID: [id number] Report ID: [id number] MTDD
[2019-01-21] MEDS: LEVOTHYROXINE SOD 0.025 MG TAB PO SCH (05:48)
[2019-01-21 06:13] LABS: Absolute Lymphocytes (CBC) 1.1 K/uL (0.7-4.9); Absolute Monocytes 0.2 K/uL (0.1-1.3); Absolute Neutrophil 1.2 K/uL (1.8-8.0); Basophils % 0.6 % (0-1.3); Eosinophils % 3.1 % (0-4.4); Hematocrit 25.3 % (39.6-49.0); Lymphocytes % 42.8 % (15.3-44.8); MPV 9.8 fL (7.6-11.3); Monocytes % 9.2 % (3.3-12.3); RBC Red Blood Cell Count 2.59 M/uL (4.33-5.43)
[2019-01-21 06:34] LABS: Albumin 2.4 g/dL (3.4-5.0); Bilirubin Total 0.4 mg/dL (0.2-1.0); Potassium 3.3 mmol/L (3.5-5.1); Protein, Total 5.5 g/dL (6.4-8.2)
[2019-01-21] MEDS: INSULIN -REGULAR HUMAN 50 UNIT/0.5 ML ML SQ SCH ×4 (07:30→21:00)
[2019-01-21] MEDS ORDERED: CALCIUM GLUC 10% INJ 9.3 MEQ in NA CHLORIDE 0.9% 100 ML IV ONE (09:00)
[2019-01-21] MEDS: VITAMIN D 1000 UNIT TAB PO SCH (09:00)
[2019-01-21] MEDS: METOPROLOL XL 25 MG TAB PO SCH (09:38)
[2019-01-21] MEDS: SODIUM BICARB 325 MG TAB PO SCH ×2 (09:38→22:19)
[2019-01-21] MEDS: ASPIRIN EC 81 MG TAB PO SCH (09:39)
[2019-01-21] MEDS: PANTOPRAZOLE 40MG TABLET PO SCH (09:39)
[2019-01-21] MEDS: CALCIUM CARBONATE CHEW 500MG TAB PO SCH ×3 (09:40→22:23)
[2019-01-21] MEDS: TAMSULOSIN 0.4 MG SR CAP PO SCH (22:19)
[2019-01-21] MEDS: ATORVASTATIN 40 MG TAB PO SCH (22:19)
[2019-01-21] MEDS: FINASTERIDE 5 MG TAB PO SCH (22:22)
[2019-01-22] MEDS: NACHLORIDE 0.45% 1,000 ML IV SCH ×2 (01:04→12:58)
--- NOTE | 2019-01-22 01:50 | PN ---
Date of Progress Note: 01/21/2019 Chief Complaint: Abnormal renal function test, chronic kidney disease, acute kidney injury. The patient is an 83-year-old man with past medical history of hypertension, hyperlipidemia, chronic kidney disease stage 3. Baseline creatinine runs at 1.6 to 1.8. He developed acute on chronic kidne y injury. He was found to have elevated creatinine of 3.3. He denies nonsteroidal anti-inflammatory medication. He was started on IV fluids and creatinine levels somewhat improved over last several d ays. The patient was found to have severe anemia, received blood transfusions. He is to have a Kranthi tology consultation for pancytopenia. Review of Systems: Denies fever, chills. Physical Examination: Lungs: Few crackles at bases. Heart: S1, S2. Abdomen: Soft, benign. Extremities: No edema. Blood Work: Hemoglobin 8.8, WBC 2.7, platelet count is 108,000. Sodium 146, potassium 3.3, chloride 119, CO2 of 17, BUN 31, creatinine 2.36, calcium 6.1, albumin 2.4, total protein 5.5. Impression And Plan: 1.Acute on chronic kidney injury. Continue IV fluids. 2.Hypernatremia, mild. Fluids were changed to half-normal saline. 3.Hypokalemia. Replacement according to lab work results. 4.Hypocalcemia. The patient was found to have vitamin D deficiency and vitamin D replacement is sta rted. 5.Pancytopenia. Workup pending with new accounts clerk. 6.Anemia, acute on chronic. The patient received blood transfusion. Hemoglobin level remains adequ ately improved after transfusion. Monitor for any evidence of bleeding. At this point, the patient is asymptomatic. EB/MODL Voice ID: [id number] Report ID: [id number]
[2019-01-22] MEDS: LEVOTHYROXINE SOD 0.025 MG TAB PO SCH (05:54)
[2019-01-22 06:03] VITALS: BMI 21.9
[2019-01-22] MEDS: INSULIN -REGULAR HUMAN 50 UNIT/0.5 ML ML SQ SCH ×4 (07:30→20:57)
[2019-01-22] MEDS: METOPROLOL XL 25 MG TAB PO SCH (08:16)
[2019-01-22] MEDS: PANTOPRAZOLE 40MG TABLET PO SCH (08:17)
[2019-01-22] MEDS: VITAMIN D 5,000 UNIT CAP PO SCH (08:17)
[2019-01-22] MEDS: SODIUM BICARB 325 MG TAB PO SCH ×2 (08:17→20:58)
[2019-01-22] MEDS: CALCIUM CARBONATE CHEW 500MG TAB PO SCH ×3 (08:17→20:59)
[2019-01-22] MEDS: predniSONE 5 MG TAB PO SCH (08:17)
[2019-01-22] MEDS: ASPIRIN EC 81 MG TAB PO SCH (08:18)
[2019-01-22] MEDS: CYCLOBENZAPRINE 10 MG TAB PO PRN (11:06)
[2019-01-22 14:35] LABS: Potassium 3.9 mmol/L (3.5-5.1)
[2019-01-22] MEDS ORDERED: TBO-FILGRASTIM 480 MCG/0.8 ML SYR SQ SCH (16:20)
[2019-01-22] MEDS: TAMSULOSIN 0.4 MG SR CAP PO SCH (20:56)
[2019-01-22] MEDS: ATORVASTATIN 40 MG TAB PO SCH (20:57)
[2019-01-22] MEDS: FINASTERIDE 5 MG TAB PO SCH (20:58)
[2019-01-23] MEDS: NACHLORIDE 0.45% 1,000 ML IV SCH (01:45)
--- NOTE | 2019-01-23 03:20 | PN ---
Date of Progress Note: 01/22/2019 Chief Complaint: Chronic kidney disease, acute kidney injury. History Of Present Illness: The patient is 83-year-old man with history of hypertension, hyperlipide byron, chronic kidney disease stage 3. Baseline creatinine runs at 1.6 to 1.8. He developed acute non oliguric kidney injury and creatinine was found to be elevated up to 3.3. He denied anti-inflammator y medication. He was found to have pancytopenia. Workup is initiated with Hematology. The patient received blood transfusion for acute on chronic anemia. He denies melena, hematemesis. Review of Systems: Denies fever, chills. Physical Examination: Lungs: Clear to auscultation bilaterally. Heart S1-S2. Abdomen: Soft, benign. Extremities: No edema. Assessment And Plan: 1.Acute on chronic kidney injury. Continue IV fluids. Renal function somewhat improving. Creatini ne is 2.36. 2.Hypocalcemia. The patient was found to have vitamin D deficiency. Continue vitamin D replacement and calcium tablet. Monitor phosphorus level and magnesium level. 3.Pancytopenia. The patient will need Hematology consultation. 4.Hypernatremia, mild. Continue IV fluids and fluids were changed to half-normal saline. EB/MODL Voice ID: [id number] Report ID: [id number]
--- NOTE | 2019-01-23 03:35 | PN ---
The patient is doing okay. The patient's urine collection for 24 hours is done. I am waiting for e Nephrology Services to decide on discharge planning to see whether they would require any more inte rventions or testing process. His creatinine is up to 2.53, BUN is 35, bicarb is 18. RRK/MODL Voice ID: [id number] Report ID: [id number]
[2019-01-23] MEDS: LEVOTHYROXINE SOD 0.025 MG TAB PO SCH (05:32)
[2019-01-23] MEDS: INSULIN -REGULAR HUMAN 50 UNIT/0.5 ML ML SQ SCH ×3 (07:30→16:30)
[2019-01-23] MEDS: CYCLOBENZAPRINE 10 MG TAB PO PRN ×2 (08:09→16:29)
[2019-01-23] MEDS: PANTOPRAZOLE 40MG TABLET PO SCH (08:09)
[2019-01-23] MEDS: SODIUM BICARB 325 MG TAB PO SCH (08:09)
[2019-01-23] MEDS: VITAMIN D 5,000 UNIT CAP PO SCH (08:09)
[2019-01-23] MEDS: CALCIUM CARBONATE CHEW 500MG TAB PO SCH (08:09)
[2019-01-23] MEDS: ASPIRIN EC 81 MG TAB PO SCH (08:10)
[2019-01-23] MEDS: METOPROLOL XL 25 MG TAB PO SCH (08:10)
[2019-01-23 11:32] VITALS: O2SAT 99
[2019-01-23 13:45] LABS: Absolute Monocytes 0.6 K/uL (0.1-1.3); Absolute Neutrophil 6.1 K/uL (1.8-8.0); Basophils % 0.2 % (0-1.3); Eosinophils % 1.1 % (0-4.4); Hematocrit 27.2 % (39.6-49.0); Lymphocytes % 13.2 % (15.3-44.8); Monocytes % 7.2 % (3.3-12.3); RBC Red Blood Cell Count 2.76 M/uL (4.33-5.43)
[2019-01-23] MEDS ORDERED: CALCIUM CARBONATE CHEW 500MG TAB PO SCH (14:00)
[2019-01-23 16:30] VITALS: TEMP 97.3
[2019-01-23] MEDS ORDERED: TBO-FILGRASTIM 480 MCG/0.8 ML SYR SQ SCH (17:00)
[2019-01-23 17:04] VITALS: BP 150/80
[2019-01-23 17:53] LABS: Anisocytosis 1+; Blood Morphology Comment NOTED (NOT SEEN); Ovalocytes SLIGHT; Platelet Estimate DECR; Poikilocytosis SLIGHT; Polychromasia SLIGHT
--- NOTE | 2019-01-23 22:27 | PN ---
Date of Progress Note: 01/23/2019 Reason For Visit: Pancytopenia. Subjective: We were asked to consult by Dr. Dunn for pancytopenia. The patient is well k nown to my partner, Dr. Varela, who he has been seeing for this pancytopenia since May. A bone marrow biopsy was done, which revealed high risk myelodysplastic syndrome. He has leukope carter and anemia and was started on Procrit 23289 units subcu to 2 weeks for the anemia. Fortunately, he has not been transfusion dependent for this anemia and has not had any major or recurrent infectio ns due to the mild neutropenia. He was hospitalized by the Renal service for worsening renal function. His white count was noted to be low, as was the hemoglobin, hence we were consulted by evp managing director, Dr. Dunn. CBC on 01/21/2019 revealed a white count of 2.7, hemoglobin was 7.3 g/dL on admission, following 1 unit of p acked cells, it was 8.6 g/dL, platelet count was 108,000. Subjectively, Mr. Eden was resting comfortably with his and daughter at his bedside. He de nied any fevers or chills. There was no complaints of bone pain or discomfort. Objective: Vital Signs: Reveal that he has indeed been afebrile. Temperature was 97.6 at 11:44 a.m. , pulse 61, respirations 18 per minute, blood pressure 128/66, saturating at 99% on room air. Genera l: Reveals a pale gentleman. There is no evidence of icterus. HEENT: Unremarkable for thrush. There was no palpable lymphadenopathy in the neck, axilla, or groin . Chest: Clear to auscultation. Heart sounds: Reveal normal S1, S2. No gallops or murmurs. Abdomen: Reveals no palpable hepatosplenomegaly. Laboratory Data: CBC this afternoon revealed a white count of 7.8 (after 1 dose of Granix), hemoglob in was stable at 9 g/dL, platelet count was a 111,000. A BMP done yesterday revealed BUN of 35, crea tinine of 3.5 for an estimated GFR of 25. Albumin was decreased at 2.4 g/dL on admission. Assessment And Plan: Pancytopenia due to myelodysplastic syndrome. His last CBC in the office revea led a white count of 2.1, absolute neutrophil count was 1000, hemoglobin 10.1, and platelet count 102 ,000, except for the decline in hemoglobin, the rest of his blood counts are at baseline. His last d ose of Procrit was in October, hence the decline in hemoglobin. I discussed the need for every 2 weeks CBCs and Procrit to maintain his hemoglobin over 8 g/dL in order to avoid transfusions. He was mixe d up with his appointments, and says he did not understand the need to come every 2 weeks. The plan is to follow up with him after discharge, he will continue on CBCs and Procrit 48904 units every 2 we eks, if hemoglobin and hematocrit are less than 10 and 30 respectively. I will discontinue the Grani x given the response to the dose he received yesterday. He will need Granix, if there is evidence of infection on his absolute neutrophil count less than 1000. Platelet count is stable and at baseline with no evidence of bleeding. No transfusion is indicated at this time. Thank you for asking us to see him. Please do not hesitate to call if you have any questions. MACY/KEYLA Voice ID: [id number] Report ID: [id number]
--- NOTE | 2019-01-24 04:54 | PN ---
Date of Progress Note: 01/23/2019 Subjective: The patient was admitted with acute kidney injury, acidosis. 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 The p atient after hydration completely asymptomatic. Physical Examination: Vital Signs: When I saw the patient, blood pressure 150/80, pulse of 62. Chest: Clear to auscultation. Heart: S1, S2. Systolic murmur. Abdomen: Soft, nontender. Extremities: No edema. Current Medications: Include atorvastatin, aspirin, calcium carbonate 500 mg b.i.d., levothyroxine, metoprolol. Assessment And Plan: 1.Acute kidney injury secondary to prerenal, recovered, resolved. We will discontinue hydration. 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 We will start the patient on sodium bicarbonate secondary to _. Start the patient on calcitriol and calcium carbonate. The patient cleared from the renal standp oint for discharge planning. To follow up in the office in 2 to 3 weeks. BRIGHT Voice ID: [id number] Report ID: [id number]
[2019-01-24 18:47] LABS: P-ANCA Anti-Myeloperoxidase Ab <1.0 AI (<1.0)
[2019-01-24 22:04] LABS: Albumin, (SPE) 2.6 g/dL (3.8-4.8); Alpha-1-Globulins 0.3 g/dL (0.2-0.3); Alpha-2-Globulins 0.6 g/dL (0.5-0.9); Gamma Globulins 0.9 g/dL (0.8-1.7); INTERPRETATION REPORT
== END 2019-01-23 17:38 | disposition home or self-care (01) | DRG 683 ==
LOC: 4TH 15:55 → OBSVTOIN 01-19 16:25
PROVIDERS: ADMIT Family Medicine; ATTEND Internal Medicine
PROC: 30233N1 Transfusion of Nonautologous Red Blood Cells into Peripheral Vein, Percutaneous Approach (ICD-10-PCS; principal; 2019-01-20)
DX: I12.9 Hypertensive chronic kidney disease with stage 1 through stage 4 chronic kidney disease, or unspecified chronic kidney disease (principal); N17.9 Acute kidney failure, unspecified; E87.0 Hyperosmolality and hypernatremia; D61.818 Other pancytopenia; E87.2 Acidosis; N18.3 Chronic kidney disease, stage 3 (moderate); E87.6 Hypokalemia; E83.51 Hypocalcemia; D46.9 Myelodysplastic syndrome, unspecified; D64.9 Anemia, unspecified; E78.5 Hyperlipidemia, unspecified; I25.10 Atherosclerotic heart disease of native coronary artery without angina pectoris; R79.89 Other specified abnormal findings of blood chemistry; E11.22 Type 2 diabetes mellitus with diabetic chronic kidney disease; N25.89 Other disorders resulting from impaired renal tubular function; E03.9 Hypothyroidism, unspecified
CPT/HCPCS: 36415; 36430; 76770; 80048; 80053; 80069; 81003; 81015; 82043; 82306; 82435; 82553; 82570; 82805; 82962; 83615; 83970; 84132; 84165; 84300; 84550; 85014; 85018; 85025; 86021; 86335; 86850; 86900; 86901; J0610; J1446; J7030; J7512; P9016

== ENCOUNTER 2020-01-23 17:47 | Inpatient (IN) | payer OTHER ==
--- OUTSIDE RECORDS SUMMARY | 2020-01-23 17:50 | XMS REPORT | Clinical Summary ---
:1935 Author Organization [facility] Address [address] [place] [address] Care Team Providers Name Role Phone MD Seth Primary Care Provider Allergies No Known Allergies Medications Not on file Active Problems Problem Noted Date MDS (myelodysplastic syndrome) 07/26/2018 Social History Tobacco Use Types Packs/Day Years Used Date Never Assessed Sex Assigned at Date Recorded Not on file Job Start Date Occupation Industry Not on file Not on file Not on file Travel History Travel Start Travel End No recent travel history available. Last Filed Vital Signs Not on file Plan of Treatment Health Maintenance Due Date Last Done Comments SHINGLES VACCINES (#1) 1986 65+ PNEUMOCOCCAL VACCINE (1 of 2 - PCV13) 2001 INFLUENZA VACCINE 03/15/2020 Results Not on fileafter 01/22/2019 Advance Directives For more information, please contact: [phone] Type Date Recorded Patient Medical Assistant Dermatology Explanati on Advance Directives, Living Will and Medical Power of Staffing Clerk
--- OUTSIDE RECORDS SUMMARY | 2020-01-23 17:50 | XMS REPORT | Continuity of Care Document ---
:1935 [address] [facility] [place] [place] Address [address] [place] [address] Care Team Providers Name Role Phone Seth GOMEZ Primary Care Physician Problems Condition Condition Condition Status Onset Resolution Last Treating Co mments Source Name Details Category Date Date Treatment Clinician Date MDS MDS Disease Active 2017-08 [place] (myelodysp (myelodysp 2-12 Me thodi lastic lastic 00:00: st syndrome) syndrome) 00 Allergies, Adverse Reactions, Alerts This patient has no known allergies or adverse reactions. Social History Social Habit Start Date Stop Date Quantity Comments Source Sex Assigned At [facility] Medications This patient has no known medications. Procedures This patient has no known procedures. Plan of Care Planned Activity Planned Date Details Comments Source Future Scheduled 2020-03-15 INFLUENZA VACCINE [facility] 00:00:00 [code = INFLUENZA VACCINE] Future Scheduled 2001 65+ PNEUMOCOCCAL [place] [facility] 00:00:00 VACCINE (1 of 2 - PCV13) [code = 65+ PNEUMOCOCCAL VACCINE (1 of 2 - PCV13)] Future Scheduled 1986 [facility]IN[facility] (#[facility]:00:00 [code = SHINGLES VACCINES (#1)] Results This patient has no known results.
[2020-01-23] MEDS ORDERED: NA CHLORIDE 0.9% 1,000 ML ONE (19:29)
[2020-01-23] MEDS ORDERED: FAMOTIDINE 20 MG/2 ML VIAL IV ONE (19:53)
[2020-01-23 19:55] LABS: Absolute Lymphocytes (CBC) 0.3 K/uL (0.7-4.9); Basophils % 0.3 % (0-1.3); Hematocrit 25.4 % (39.6-49.0); Lymphocytes % 20.6 % (15.3-44.8); MPV 10.6 fL (7.6-11.3); RBC Red Blood Cell Count 2.41 M/uL (4.33-5.43)
--- NOTE | 2020-01-23 20:06 | RAD REPORT ---
EXAM DESCRIPTION: RAD - Chest Single View - 01/23/2020 7:48 pm CLINICAL HISTORY: COUGH Chest pain. COMPARISON: Chest Single View dated 12/27/2018; Chest Single View dated 12/26/2018; Chest Single View dated 01/15/2018; Chest Pa And Lat (2 Views) dated 03/30/2016 FINDINGS: Portable technique limits examination quality. Linear subsegmental atelectasis is present in the left lung base. The lungs are otherwise clear. The heart is normal in size. Sternotomy wires noted.
[2020-01-23 20:17] LABS: ALT/SGPT 17 U/L (12-78); AST/SGOT 13 U/L (15-37); Albumin 2.1 g/dL (3.4-5.0); Alkaline Phosphatase 84 U/L (45-117); BUN Blood Urea Nitrogen 57 mg/dL (7-18); Bicarbonate 18 mmol/L (21-32); Bilirubin Direct 0.2 mg/dL (0-0.2); Bilirubin Total 0.3 mg/dL (0.2-1.0); Glucose Level 290 mg/dL (74-106); NT PRO-BNP 2831 pg/mL (<450); Potassium 3.2 mmol/L (3.5-5.1); Protein, Total 6.4 g/dL (6.4-8.2); Sodium Level 141 mmol/L (136-145); Troponin (Emerg Dept Use Only) < 0.02 ng/mL (0.0-0.045)
[2020-01-23 20:19] LABS: Magnesium 1.2 mg/dL (1.8-2.4)
[2020-01-23 20:20] LABS: Blood Morphology Comment NOTED (NOT SEEN); Macrocytosis 1+; Platelet Estimate ADEQ; Urine White Blood Cell Casts OK
--- NOTE | 2020-01-23 21:07 | RAD REPORT ---
EXAM DESCRIPTION: CT - Chest Abd Pelvis Wo Con - 01/23/2020 8:54 pm CLINICAL HISTORY: Chest and abdomen pain. electrolyte abnormalities COMPARISON: Lung Cancer Screening CT W/O dated 09/14/2018; Chest Single View dated 01/23/2020; Renal U ltrasound-Complete dated 01/18/2019; Renal Ultrasound-Complete dated 12/26/2018; Abdomen Pelvis Wo Con trast dated 01/15/2018 TECHNIQUE: A limited noncontrast study was performed. All CT scans are performed using dose optimization technique as appropriate and may include automated exposure control or mA/KV adjustment according to patient size. FINDINGS: Mild linear atelectasis is present in the left lung base.Small calcified granuloma seen in the right upper lobe. No lung infiltrate seen.No pleural or pericardial effusion.No intrathoracic ad enopathy. An irregular mass is present involving the pancreatic head/ uncinate process measuring 4.9 x 4.0 cm. Irregular pancreatic ductal dilatation is also present with several small calcifications in the pancr eatic parenchyma. The spleen, adrenal glands and right kidney are within normal limits. Small gallsto gail suspected. Pvzu-cg-[id number] atrophy left kidney seen. No bowel obstruction, free air, free fluid or abscess. The appendix is not identified as a discrete s tructure, however, no secondary findings of appendicitis are identified. Moderate stool is retained throughout the colon. No pathologic lymphadenopathy in the abdomen or pelvis. Moderate lumbosacral degenerative changes. IMPRESSION: Irregular mass (4.9 x 4.0 cm) in the region of the pancreatic head and uncinate process identified, quite worrisome for neoplasia. Pancreatic ductal dilatation with findings chronic pancreatitis also noted. Moderate atrophy left kidney.
--- NOTE | 2020-01-23 21:08 | ER ---
Nurse's Notes [facility] Name: Dennys Eden Jr Age: 84 yrs Sex: Male : 1935 Arrival Date: 01/23/2020 Time: 17:50 Bed 19 Private MD: Diagnosis: Urinary tract infection, site not specified;Hypomagnesemia;Pancytopenia;Hypocalcemia Presentation: 01/22 18:02 Chief complaint: Patient states: Dr. Nicole called my daughter and told me to come up tw2 here, i dont really know why, i had some bloodwork yesterday, i have been feeling weak over the past few months. Coronavirus screen: Patient denies a cough. Patient denies shortness of breath or difficulty breathing. Patient denies measured and/or subjective temperature greater than 100.4F prior to today's visit. Patient denies travel on a cruise ship or to a country the [facility] currently lists as an affected area. Patient denies contact with known and/or suspected case of COVID-19. Ebola Screen: Patient denies travel to an Ebola-affected area in the 21 days before illness onset. Initial Sepsis Screen: Does the patient meet any 2 criteria? No. Patient's initial sepsis screen is negative. Does the patient have a suspected source of infection? No. Patient's initial sepsis screen is negative. Risk Assessment: Do you want to hurt yourself or someone else? Patient reports no desire to harm self or others. Onset of symptoms was January 23, 2020. 18:02 Method Of Arrival: Ambulatory tw2 18:02 Acuity: RANDI 3 tw2 Triage Assessment: 18:05 General: Appears in no apparent distress. slender, well groomed, Behavior is calm, tw2 cooperative, appropriate for age. Pain: Denies pain. Historical: - Allergies: 18:06 No Known Allergies; tw2 - Home Meds: 18:06 aspirin 81 mg Oral chew 1 tab once daily [Active]; atorvastatin 40 mg Oral tab once tw2 daily [Active]; Celecoxib Oral [Active]; finasteride 5 mg Oral tab once daily [Active]; furosemide 20 mg Oral tab 1 tab once daily [Active]; glimepiride 2 mg Oral tab [Active]; Hydrochlorothiazide Oral [Active]; levothyroxine 25 mcg tab once daily [Active]; losartan Oral [Active]; metoprolol succinate 25 mg Oral Tb24 once daily [Active]; pantoprazole 40 mg Oral TbEC once daily [Active]; prednisone 5 mg Oral tab one every other day [Active]; tamsulosin 0.4 mg Oral cp24 once daily [Active]; - PMHx: 18:06 Diabetes - NIDDM; Hypertension; Hypothyroidism; Kidney insufficiency; tw2 - Immunization history:: Adult Immunizations. - Social history:: Smoking status: . - Family history:: not pertinent. Screenin:49 Abuse screen: Denies threats or abuse. Nutritional screening: No deficits noted. tw2 Tuberculosis screening: No symptoms or risk factors identified. Fall Risk Secondary diagnosis (15 points) impaired mobility. Assessment: 19:15 General: Appears in no apparent distress. comfortable, Behavior is calm, cooperative, vc appropriate for age. Pain: Denies pain. Neuro: Level of Consciousness is awake, alert, obeys commands, Oriented to person, place, time. Cardiovascular: Capillary refill < 3 seconds Patient's skin is warm and dry. Respiratory: Airway is patent Respiratory effort is even, unlabored, Respiratory pattern is regular, symmetrical. GI: No signs and/or symptoms were reported involving the gastrointestinal system. : No signs and/or symptoms were reported regarding the genitourinary system. Derm: Skin is intact, is healthy with good turgor, Skin temperature is warm. 19:43 Reassessment: pt provided with a urinal per pt request. sg 20:00 Reassessment: Patient appears in no apparent distress at this time. Patient and/or vc family updated on plan of care and expected duration. Pain level reassessed. Patient is alert, oriented x 3, equal unlabored respirations, skin warm/dry/pink. Patient denies pain at this time. 21:00 Reassessment: Patient appears in no apparent distress at this time. Patient and/or vc family updated on plan of care and expected duration. Pain level reassessed. Patient is alert, oriented x 3, equal unlabored respirations, skin warm/dry/pink. Patient denies pain at this time. 22:00 Reassessment: Patient appears in no apparent distress at this time. Patient and/or vc family updated on plan of care and expected duration. Pain level reassessed. Patient is alert, oriented x 3, equal unlabored respirations, skin warm/dry/pink. Patient denies pain at this time. 23:00 Reassessment: Patient appears in no apparent distress at this time. Patient and/or vc family updated on plan of care and expected duration. Pain level reassessed. Patient is alert, oriented x 3, equal unlabored respirations, skin warm/dry/pink. Patient denies pain at this time. 01/23 00:00 Reassessment: Patient appears in no apparent distress at this time. Patient and/or vc family updated on plan of care and expected duration. Pain level reassessed. Patient is alert, oriented x 3, equal unlabored respirations, skin warm/dry/pink. 00:16 Reassessment: this patient to be admitted to the facility, awaiting admission orders at this time. 01:00 Reassessment: Patient appears in no apparent distress at this time. Patient and/or vc family updated on plan of care and expected duration. Pain level reassessed. Patient is alert, oriented x 3, equal unlabored respirations, skin warm/dry/pink. Vital Signs: 01/22 18:02 BP 126 / 68; Pulse 84; Resp 16; Temp 98.1(TE); Pulse Ox 99% on R/A; Weight 58.06 kg tw2 (R); Height 5 ft. 8 in. (172.72 cm); Pain 0/10; 19:00 BP 120 / 62; Pulse 59; Resp 18; Pulse Ox 100% on R/A; vc 20:00 BP 142 / 70; Pulse 61; Resp 19; Pulse Ox 100% on R/A; vc 20:30 BP 126 / 73 LA (man/); Pulse 63; Resp 21 S; Pulse Ox 100% on R/A; jp3 21:00 BP 126 / 73; Pulse 57; Resp 22; Pulse Ox 100% on R/A; vc 22:00 BP 148 / 59; Pulse 45; Resp 18; Pulse Ox 100% on R/A; vc 23:00 BP 138 / 49; Pulse 53; Resp 17; Temp 98; Pulse Ox 99% on R/A; vc 01/23 00:00 BP 129 / 51; Pulse 56; Resp 18; Pulse Ox 100% on R/A; vc 01:00 BP 116 / 47; Pulse 52; Resp 20; Pulse Ox 100% on R/A; vc 01/22 18:02 Body Mass Index 19.46 (58.06 kg, 172.72 cm) tw2 ED Course: 01/22 17:50 Patient arrived in ED. fj1 18:04 Triage completed. tw2 18:04 Arm band placed on. tw2 18:44 Bed in low position. Side rails up X2. Adult w/ patient. tw2 18:49 Ashok Whaley MD is Attending Physician. [facility] 19:38 Jason Rudd PA is PHCP. jm 19:40 Initial lab(s) drawn, by mt, sent to lab. Inserted saline lock: 20 gauge in right sg antecubital area, using aseptic technique. Blood collected. 19:47 XRAY Chest (1 view) In Process Unspecified. EDMS 19:51 Gillian Arevalo, RN is Primary Nurse. vc 20:10 EKG done, by ED staff, reviewed by Jason ALTAMIRANO. Patient maintains SpO2 saturation jp3 greater than 95% on room air. 20:32 Urine collected: clean catch specimen, clear, kurtis colored. jp3 20:54 Chest Abdomen Pelvis Wo Con CT In Process Unspecified. EDMS 21:07 Keanu Mcduffie is Hospitalizing Provider. [facility] 01/23 00:13 Keanu Mcduffie is Hospitalizing Provider. [facility] 01:24 No provider procedures requiring assistance completed. Patient admitted, IV remains in vc place. Administered Medications: 01/22 19:35 Drug: NS 0.9% 1000 ml Route: IV; Rate: 75 ml/hr; Site: right antecubital; 01/23 01:15 Follow up: IV Status: Infusion continued upon admission 01/22 19:52 Drug: Pepcid 20 mg Route: IVP; Site: right antecubital; 01/23 01:15 Follow up: Response: No adverse reaction 01/22 22:01 Drug: Calcium Chloride 1 grams Route: IVP; Site: right antecubital; 01/23 01:14 Follow up: Response: No adverse reaction 01/22 23:55 Drug: Rocephin 1 grams Route: IV; Rate: calculated rate; Site: right antecubital; 23:59 Follow up: IV Status: Completed infusion; IV Intake: 10ml 01/23 00:22 Drug: Magnesium Sulfate 1 grams Route: IVPB; Infused Over: 1 hrs; Site: right vc antecubital; 01:14 Follow up: IV Status: Completed infusion; IV Intake: 100ml vc Intake: 01/22 23:59 IV: 10ml; Total: 10ml. vc 01/23 01:14 IV: 100ml; Total: 110ml. vc Outcome: 01/22 21:08 Decision to Hospitalize by Provider. [facility] 01/23 00:16 Decision to Hospitalize by Provider. [facility] 01:24 Admitted to Med/surg accompanied by tech, via stretcher, room 219, with chart, Report vc called to CHRIS Crow 01:24 Condition: good 01:56 Patient left the ED. vc Signatures: Dispatcher [employer] EDMS Riki Monterroso, RN RN Ashok Gallo MD MD cha Mickail, Joel, PA PA jmm Wise, Tara, RN RN tw2 Mahad Morales jp3 Gillian Arevalo RN RN vc James, Frank fj1
--- NOTE | 2020-01-23 21:08 | EDPHYS ---
Physician Documentation [facility] Name: Dennys Eden Jr Age: 84 yrs Sex: Male : 1935 Arrival Date: 01/23/2020 Time: 17:50 Bed 19 Private MD: ED Physician sAhok Whaley HPI: 01/22 19:20 This 84 yrs old Male presents to ER via Ambulatory with complaints of Abnormal miladis Lab Results. 19:20 weak, abnormal labs, sent in for renal failure, hx of anemia. Onset: The miladis symptoms/episode began/occurred 2 day(s) ago. Severity of symptoms: At their worst the symptoms were mild in the emergency department the symptoms are unchanged. The patient has experienced similar episodes in the past, several times. Historical: - Allergies: 18:06 No Known Allergies; tw2 - Home Meds: 18:06 aspirin 81 mg Oral chew 1 tab once daily [Active]; atorvastatin 40 mg Oral tab once tw2 daily [Active]; Celecoxib Oral [Active]; finasteride 5 mg Oral tab once daily [Active]; furosemide 20 mg Oral tab 1 tab once daily [Active]; glimepiride 2 mg Oral tab [Active]; Hydrochlorothiazide Oral [Active]; levothyroxine 25 mcg tab once daily [Active]; losartan Oral [Active]; metoprolol succinate 25 mg Oral Tb24 once daily [Active]; pantoprazole 40 mg Oral TbEC once daily [Active]; prednisone 5 mg Oral tab one every other day [Active]; tamsulosin 0.4 mg Oral cp24 once daily [Active]; - PMHx: 18:06 Diabetes - NIDDM; Hypertension; Hypothyroidism; Kidney insufficiency; tw2 - Immunization history:: Adult Immunizations. - Social history:: Smoking status: . - Family history:: not pertinent. ROS: 19:20 Constitutional: Negative for fever, chills, and weight loss, Eyes: Negative for injury, miladis pain, redness, and discharge, ENT: Negative for injury, pain, and discharge, Neck: Negative for injury, pain, and swelling, Cardiovascular: Negative for chest pain, palpitations, and edema, Respiratory: Negative for shortness of breath, cough, wheezing, and pleuritic chest pain, Abdomen/GI: Negative for abdominal pain, nausea, vomiting, diarrhea, and constipation, Back: Negative for injury and pain, : Negative for injury, bleeding, discharge, and swelling, MS/Extremity: Negative for injury and deformity, Psych: Negative for depression, anxiety, suicide ideation, homicidal ideation, and hallucinations, Allergy/Immunology: Negative for hives, rash, and allergies, Endocrine: Negative for neck swelling, polydipsia, polyuria, polyphagia, and marked weight changes. 19:20 Skin: Positive for pallor. 19:20 Neuro: Positive for weakness. Exam: 19:20 Constitutional: This is a well developed, well nourished patient who is awake, alert, miladis and in no acute distress. Head/Face: Normocephalic, atraumatic. Eyes: Pupils equal round and reactive to light, extra-ocular motions intact. Lids and lashes normal. Conjunctiva and sclera are non-icteric and not injected. Cornea within normal limits. Periorbital areas with no swelling, redness, or edema. ENT: Nares patent. No nasal discharge, no septal abnormalities noted. Tympanic membranes are normal and external auditory canals are clear. Oropharynx with no redness, swelling, or masses, exudates, or evidence of obstruction, uvula midline. Mucous membranes moist. Neck: Trachea midline, no thyromegaly or masses palpated, and no cervical lymphadenopathy. Supple, full range of motion without nuchal rigidity, or vertebral point tenderness. No Meningismus. Chest/axilla: Normal chest wall appearance and motion. Nontender with no deformity. No lesions are appreciated. Cardiovascular: Regular rate and rhythm with a normal S1 and S2. No gallops, murmurs, or rubs. Normal PMI, no JVD. No pulse deficits. Respiratory: Lungs have equal breath sounds bilaterally, clear to auscultation and percussion. No rales, rhonchi or wheezes noted. No increased work of breathing, no retractions or nasal flaring. Abdomen/GI: Soft, non-tender, with normal bowel sounds. No distension or tympany. No guarding or rebound. No evidence of tenderness throughout. Back: No spinal tenderness. No costovertebral tenderness. Full range of motion. MS/ Extremity: Pulses equal, no cyanosis. Neurovascular intact. Full, normal range of motion. Neuro: Awake and alert, GCS 15, oriented to person, place, time, and situation. Cranial nerves II-XII grossly intact. Motor strength 5/5 in all extremities. Sensory grossly intact. Cerebellar exam normal. Normal gait. Psych: Awake, alert, with orientation to person, place and time. Behavior, mood, and affect are within normal limits. 19:20 Skin: Appearance: Color: pale. Vital Signs: 18:02 BP 126 / 68; Pulse 84; Resp 16; Temp 98.1(TE); Pulse Ox 99% on R/A; Weight 58.06 kg tw2 (R); Height 5 ft. 8 in. (172.72 cm); Pain 0/10; 19:00 BP 120 / 62; Pulse 59; Resp 18; Pulse Ox 100% on R/A; vc 20:00 BP 142 / 70; Pulse 61; Resp 19; Pulse Ox 100% on R/A; vc 20:30 BP 126 / 73 LA (man/); Pulse 63; Resp 21 S; Pulse Ox 100% on R/A; jp3 21:00 BP 126 / 73; Pulse 57; Resp 22; Pulse Ox 100% on R/A; vc 22:00 BP 148 / 59; Pulse 45; Resp 18; Pulse Ox 100% on R/A; vc 23:00 BP 138 / 49; Pulse 53; Resp 17; Temp 98; Pulse Ox 99% on R/A; vc 01/23 00:00 BP 129 / 51; Pulse 56; Resp 18; Pulse Ox 100% on R/A; vc 01:00 BP 116 / 47; Pulse 52; Resp 20; Pulse Ox 100% on R/A; vc 01/22 18:02 Body Mass Index 19.46 (58.06 kg, 172.72 cm) tw2 MDM: 01/22 18:49 Patient medically screened. [facility] 19:22 Data reviewed: vital signs, nurses notes, old medical records, lab test result(s), EKG, miladis radiologic studies. Data interpreted: monitoring engineer: rate is 84 beats/min, Pulse oximetry: on room air is 99 %. Test interpretation: by ED physician or midlevel provider: ECG, plain radiologic studies. Counseling: I had a detailed discussion with the patient and/or guardian regarding: the historical points, exam findings, and any diagnostic results supporting the discharge/admit diagnosis, lab results, radiology results. ED course: pt stable , checked out to shawn mickail pa. 19:24 ED course: pt denies black tarry stools, hx of upper and lower gi work up , no bleeding miladis found. pt states dr manuel is his gi md. 21:06 ED course: I discussed the patient with Dr. Nicole and Dr. Mcduffie. Will admit to Dr. charlotte Mcduffie due to electrolyte abnormalities. . 01/23 00:11 ED course: Dr. Mcduffie recommended transfer due to delay in diagnoses for pancreatic jmm mass. I then discussed the patient with Dr. Saini whom recommended outpatient follow up for further evaluation of the mass. On a subsequent call, he discussed patient with administration and declined transfer. I further discussed the patient with Reta whom then accepted admission. . 01/22 19:18 Order name: Basic Metabolic Panel; Complete Time: 00:10 [facility] 01/22 19:18 Order name: CBC with Diff; Complete Time: 20:31 [facility] 01/22 19:18 Order name: LFT's; Complete Time: 00:10 [facility] 01/22 19:18 Order name: Magnesium; Complete Time: 00:10 [facility] 01/22 19:18 Order name: NT PRO-BNP; Complete Time: 00:10 [facility] 01/22 19:18 Order name: Troponin (emerg Dept Use Only); Complete Time: 00:10 [facility] 01/22 19:18 Order name: XRAY Chest (1 view); Complete Time: 20:13 [facility] 01/22 19:18 Order name: Type And Screen; Complete Time: 20:37 [facility] 01/22 19:18 Order name: Urine Culture [facility] 01/22 20:21 Order name: CBC Smear Scan; Complete Time: 20:31 [facility] 01/22 20:39 Order name: Chest Abdomen Pelvis Wo Con CT; Complete Time: 21:10 [facility] 01/22 20:41 Order name: Urine Dipstick--Ancillary (enter results); Complete Time: 21:10 [facility] 01/22 23:57 Order name: Lipase; Complete Time: 00:10 [facility] 01/22 19:18 Order name: EKG; Complete Time: 19:19 [facility] 01/22 19:18 Order name: Cardiac monitoring; Complete Time: 19:40 [facility] 01/22 19:18 Order name: EKG - Nurse/Tech; Complete Time: 20:32 [facility] 01/22 19:18 Order name: IV Saline Lock; Complete Time: 19:40 [facility] 01/22 19:18 Order name: Labs collected and sent; Complete Time: 19:40 [facility] 01/22 19:18 Order name: O2 Per Protocol; Complete Time: 19:40 [facility] 01/22 19:18 Order name: O2 Sat Monitoring; Complete Time: 19:40 [facility] 01/22 19:18 Order name: Urine Dipstick-Ancillary (obtain specimen); Complete Time: 20:33 [facility] Administered Medications: 01/22 19:35 Drug: NS 0.9% 1000 ml Route: IV; Rate: 75 ml/hr; Site: right antecubital; 01/23 01:15 Follow up: IV Status: Infusion continued upon admission 01/22 19:52 Drug: Pepcid 20 mg Route: IVP; Site: right antecubital; 01/23 01:15 Follow up: Response: No adverse reaction 01/22 22:01 Drug: Calcium Chloride 1 grams Route: IVP; Site: right antecubital; 01/23 01:14 Follow up: Response: No adverse reaction 01/22 23:55 Drug: Rocephin 1 grams Route: IV; Rate: calculated rate; Site: right antecubital; vc 23:59 Follow up: IV Status: Completed infusion; IV Intake: 10ml vc 01/23 00:22 Drug: Magnesium Sulfate 1 grams Route: IVPB; Infused Over: 1 hrs; Site: right vc antecubital; 01:14 Follow up: IV Status: Completed infusion; IV Intake: 100ml vc Disposition: 18:39 Co-signature as Attending Physician, Ashok Whaley MD I agree with the assessment and [facility] plan of care. Disposition: 01/24/20 00:16 Hospitalization ordered by Keanu Mcduffie for Inpatient Admission. Preliminary diagnosis are Urinary tract infection, site not specified, Hypomagnesemia, Pancytopenia, Hypocalcemia. - Bed requested for Telemetry/MedSurg (Inpatient). - Status is Inpatient Admission. vc - Condition is Stable. - Problem is new. - Symptoms are unchanged. Signatures: Dispatcher [employer] EDRiki Vanegas RN RN sg Anderson, Corey, MD MD cha Mickail, Joel, PA PA jmm Nieto, Roman, MD MD rn Lasagna, Tonya, RN RN tl1 Merline Razo RN RN tw2 Gillian Arevalo, CHRIS RN vc Corrections: (The following items were deleted from the chart) 01/22 23:28 21:08 Hospitalization Ordered by Keanu Mcduffie for Observation. Preliminary diagnosis jm is Hypomagnesemia; Hypocalcemia; Acute Kidney Injury; Dehydration; Urinary tract infection, site not specified. Bed requested for Telemetry/MedSurg (observation). Status is Observation. Condition is Stable. Problem is new. Symptoms are unchanged. [facility] 23:57 23:45 LIPASE+C.LAB.BRZ ordered. EDIN EDMS 01/23 00:33 00:16 Hospitalization Ordered by Keanu Mcduffie for Inpatient Admission. Preliminary tl1 diagnosis is Urinary tract infection, site not specified; Hypomagnesemia; Pancytopenia; Hypocalcemia. Bed requested for Telemetry/MedSurg (Inpatient). Status is Inpatient Admission. Condition is Stable. Problem is new. Symptoms are unchanged. [facility] 01:56 00:33 01/24/2020 00:16 Hospitalization Ordered by Keanu Mcduffie for Inpatient vc Admission. Preliminary diagnosis is Urinary tract infection, site not specified; Hypomagnesemia; Pancytopenia; Hypocalcemia. Bed requested for Telemetry/MedSurg (Inpatient). Status is Inpatient Admission. Condition is Stable. Problem is new. Symptoms are unchanged. tl1
[2020-01-23 21:09] LABS: Urine Blood 1+ (NEG); Urine Glucose 1+ (NEG); Urine Protein 1+ (NEG); Urine Specific Gravity 1.015 (1.005-1.030)
[2020-01-23] MEDS ORDERED: Caclcium Chloride 10% INJ SYR IV ONE (21:50)
[2020-01-23] MEDS ORDERED: NA CHLORIDE 0.9% 50 ML IV ONE (21:52)
[2020-01-23] MEDS ORDERED: CEFTRIAXONE/SWI 1gm 1 GM/10 ML SYR ONE (23:58)
[2020-01-24 00:08] LABS: Lipase 17 U/L (73-393)
--- NOTE | 2020-01-24 00:23 | P.HP ---
Certification for Inpatient Patient admitted to: Inpatient With expected LOS: >2 Midnights Practitioner: I am a practitioner with admitting privileges, knowledge of patient current condition, hospital course, and medical plan of care. Services: Services provided to patient in accordance with Admission requirements found in Title 42 Section 412.3 of the Code of Federal Regulations Patient History Date of Service: 01/24/20 Reason for admission: Abnormal labs History of Present Illness: 84-year-old gentleman with a history of myelodysplastic syndrome, diabetes mellitus type 2 was referred to the emergency department due to abnormal labs. Patient reports 3 months history of weight loss, loss of appetite and generalized weakness. Blood work in the ED demonstrated hypocalcemia, acute renal failure, neutropenia and anemia. He denied any diarrhea, nausea and vomiting. CT abdomen and pelvis done in the ED demonstrated pancreatic mass highly suspicious for malignancy. Patient is admitted for further management. Allergies No Known Allergies Allergy (Verified 01/14/18 23:39) Home Medications: Aspirin [Aspir-Low] 81 mg PO DAILY 01/14/18 Atorvastatin Calcium 40 mg PO DAILY 01/14/18 Levothyroxine [Synthroid*] 25 mcg PO DAILY 01/14/18 Metoprolol Succinate [Toprol Xl*] 25 mg PO DAILY 01/14/18 Pantoprazole Sodium 40 mg PO DAILY 01/14/18 Tamsulosin HCl [Flomax] 0.4 mg PO BEDTIME 01/14/18 Glimepiride 1 mg PO BEDTIME 12/26/18 predniSONE [Prednisone*] 5 mg PO SEECOM 12/26/18 Finasteride [Proscar*] 1 tab PO BEDTIME 01/17/19 Calcium Carbonate [Tums Regular*] 1,000 mg PO TID #180 tab 01/23/19 Na Bicarb Tab [Sodium Bicarb 325 MG Tab*] 650 mg PO TID #180 tab 01/23/19 - Past Medical/Surgical History Diabetic: Yes -: HTN -: NIDDM -: Inflammation of the Pancreas -: Hypothyroidism -: Kidney Insufficiency -: Gout -: Double Bypass - Family History Mother -: Cancer Notes: Stomach Cancer Father Notes: Heart Attack - Social History Alcohol use: No CD- Drugs: No Caffeine use: Yes Review of Systems Other: Except as documented, all other systems reviewed and negative. Physical Examination - Physical Exam General: Alert, In no apparent distress, Cachectic HEENT: PERRLA, Mucous membr. moist/pink, Sclerae nonicteric Neck: Supple, JVD not distended Respiratory: Clear to auscultation bilaterally, Normal air movement Cardiovascular: No edema, Normal pulses, Normal S1 S2 Capillary refill: <2 Seconds Gastrointestinal: Normal bowel sounds, Soft and benign, Non-distended, No tenderness, No masses Musculoskeletal: No swelling, No erythema Integumentary: No rashes Neurological: Normal speech, Normal strength at 5/5 x4 extr - Studies Laboratory Data (last 24 hrs) 01/23/20 23:44: Lipase Cancelled 01/23/20 19:37: WBC 1.5 L*, Hgb 8.0 L, Hct 25.4 L, Plt Count 159 01/23/20 19:37: Sodium 141, Potassium 3.2 L, BUN 57 H, Creatinine 2.87 H, Glucose 290 H, Magnesium 1.2 L*, Total Bilirubin 0.3, AST 13 L, ALT 17, Alkaline Phosphatase 84, Lipase 17 L Assessment and Plan - Problems (Diagnosis) (1) Hypocalcemia Current Visit: Yes Status: Acute (2) MARSHALL (acute kidney injury) Current Visit: No Status: Acute (3) Anemia Onset Date: 05/09/18 Current Visit: No Status: Acute Qualifiers: (4) Hypomagnesemia Onset Date: 05/11/18 Current Visit: No Status: Acute (5) Neutropenia Onset Date: 05/11/18 Current Visit: No Status: Acute (6) HTN (hypertension) Onset Date: 05/09/18 Current Visit: No Status: Chronic Qualifiers: - Plan Admit to the medical floor. Acute renal failure likely secondary to dehydration IV hydration Correct magnesium and calcium IV. Monitor and replete electrolytes. GI consult. Hematology oncology consult. - Advance Directives Does patient have a Living Will: No Does patient have a Durable POA for Healthcare: No
[2020-01-24] MEDS ORDERED: MAGNESIUM SULFATE 1 gm IVPB 1 GM/100 ML BAG IV ONE (00:25)
[2020-01-24] MEDS ORDERED: ONDANSETRON 4 MG/2 ML VIAL IV PRN (01:34)
[2020-01-24] MEDS: NA CHLORIDE 0.9% 1,000 ML IV SCH ×5 (01:34→21:44)
[2020-01-24] MEDS ORDERED: Magnesium Sulfate 2gm IVPB 2 G/50 ML BAG IV ONE (01:34)
[2020-01-24] MEDS ORDERED: CALCIUM GLUC 10% INJ 9.3 MEQ in NA CHLORIDE 0.9% 100 ML IV ONE (01:34)
[2020-01-24 01:55] VITALS: BMI 18.7
[2020-01-24 02:43] LABS: Phosphorus 3.8 mg/dL (2.5-4.9); Potassium 3.3 mmol/L (3.5-5.1)
[2020-01-24 02:45] LABS: Magnesium 1.4 mg/dL (1.8-2.4)
[2020-01-24] MEDS ORDERED: POTASSIUM 25 MEQ EFFERV TAB PO ONE (03:32)
[2020-01-24] MEDS: CALCIUM GLUCONATE 1 GM IVPB 1 GM/50 ML BAG IV SCH ×2 (04:28→05:43)
[2020-01-24] MEDS: INSULIN -REGULAR HUMAN 50 UNIT/0.5 ML ML SQ SCH ×4 (07:30→20:57)
[2020-01-24] MEDS: CALCITROL 0.25 MCG CAP PO SCH (10:27)
[2020-01-24] MEDS ORDERED: EPOETIN ALFA-EPBX 10,000 UNIT/ML VIAL SQ SCH (11:00)
--- NOTE | 2020-01-24 11:31 | P.PN ---
Date of Service: 01/24/20 Patient seen and examined chart reviewed and case discussed with RN and oncologist Dr. Bradford. Patient admitted early this morning by night physician please see his H and P for details Patient has a poor prognosis due to his history of myelodysplastic syndrome very low white count of around 1.5-2. Not a candidate for chemotherapy per oncology. May be a candidate for surgery. Will obtain MRCP for further evaluation GI consult pending Will check CA 19 9
[2020-01-24 11:32] LABS: Potassium 3.5 mmol/L (3.5-5.1)
--- NOTE | 2020-01-24 13:25 | RAD REPORT ---
EXAM DESCRIPTION: MRI - Cholangiogram - 01/24/2020 12:56 pm CLINICAL HISTORY: pancreatic mass Abdominal pain COMPARISON: Chest Abd Pelvis Wo Con dated 01/23/2020 FINDINGS: Three-dimensional MRCP was performed using maximum intensity projection reconstruction on the same work station. Significant dilatation of the pancreatic duct is seen which is irregular in nature. Slightly T2 hyper intense mass lesion is present in the region of the pancreatic uncinate process measuring 3.5 x 3.0 c m. Imaging characteristics are nonspecific however this is likely neoplastic in origin. Common bile d uct is mildly prominent throughout its course. No common bile duct filling defects seen. Gallbladder is contracted limiting assessment. Small stones are suspected in the gallbladder mild per icholecystic fluid. IMPRESSION: Significant irregular dilatation of the pancreatic duct is present with 3.5 x 3.0 cm non specific mass in the region uncinate process. 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 In this age group, IPMN may be considered. Followup ERCP assessment would be suggested. Cholelithiasis. Mild dilatation of the common bile duct is seen without stone.
[2020-01-24] MEDS ORDERED: POTASSIUM CL SA 10 MEQ TAB PO ONE (21:00)
[2020-01-24] MEDS: ATORVASTATIN 40 MG TAB PO SCH (21:02)
[2020-01-25] MEDS: LEVOTHYROXINE SOD 0.125 MG TAB PO SCH (05:25)
[2020-01-25] MEDS: NA CHLORIDE 0.9% 1,000 ML IV SCH (05:25)
[2020-01-25 05:51] LABS: Absolute Lymphocytes (CBC) 0.5 K/uL (0.7-4.9); Basophils % 0.7 % (0-1.3); Hematocrit 24.6 % (39.6-49.0); Lymphocytes % 33.6 % (15.3-44.8); MPV 10.2 fL (7.6-11.3); RBC Red Blood Cell Count 2.38 M/uL (4.33-5.43)
[2020-01-25 07:02] LABS: Albumin 1.8 g/dL (3.4-5.0); Bilirubin Total 0.3 mg/dL (0.2-1.0); Magnesium 1.5 mg/dL (1.8-2.4); Potassium 3.3 mmol/L (3.5-5.1); Protein, Total 5.4 g/dL (6.4-8.2)
[2020-01-25] MEDS: INSULIN -REGULAR HUMAN 50 UNIT/0.5 ML ML SQ SCH ×4 (07:30→21:38)
[2020-01-25] MEDS: CALCITROL 0.25 MCG CAP PO SCH (07:54)
[2020-01-25] MEDS: GLIMEPIRIDE 2 MG TABLET PO SCH (07:54)
[2020-01-25] MEDS: FINASTERIDE 5 MG TAB PO SCH (07:54)
[2020-01-25] MEDS: ASPIRIN 81 MG CHEWABLE TABLET PO SCH (07:54)
[2020-01-25] MEDS: TAMSULOSIN 0.4 MG SR CAP PO SCH (07:54)
[2020-01-25] MEDS ORDERED: POTASSIUM 25 MEQ EFFERV TAB PO ONE (08:00)
[2020-01-25] MEDS ORDERED: Magnesium Sulfate 2gm IVPB 2 G/50 ML BAG IV ONE (08:00)
[2020-01-25] MEDS: METOPROLOL TAR 25 MG TAB PO SCH (08:03)
[2020-01-25] MEDS ORDERED: FUROSEMIDE 40 MG TABLET PO SCH (09:00)
[2020-01-25] MEDS ORDERED: predniSONE 5 MG TAB PO SCH (09:00)
[2020-01-25] MEDS ORDERED: FAMOTIDINE 20 MG TAB PO SCH (09:00)
--- NOTE | 2020-01-25 10:06 | P.CNS ---
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, and CAD and Hx of MDS pt was admitted for abnormal labs denied , fever , chills , nausea, vomiting , diarrhea or constipation Physical exam general: AAOX3, NAD , thin Neck; Supple, No elevated JVD hear: RRR, normal S1,2 no murmur or rub Chest: CTAB, no rlaes or wheezes Abdomen: Soft , Nt Extremities No edema or ulcer Acute kidney injury secondary to prerenal, baseline Cr ~2.2 Cr improving near baseline will dc NS and switch to 1/2 NS will dc lasix for now will order renal US Metabolic acidosis likely due to MARSHALL and NS will change fluid to 1/2 NS will consider to add Po bicarb Hypertension controlled pancytopenia not cadidate for chemotherapy hematology on board plan for epogen Diabetes as by primary. as per primary Hypocalcemia , hypomagnesemia and hypokalmeia cont calcitriol mg replaced will check Phos Total time spent 50 min Poor prognosis Allergies No Known Allergies Allergy (Verified 01/14/18 23:39) Home Medications: Aspirin Chewable [Aspirin Chewable*] 81 mg PO DAILY 01/24/20 Atorvastatin Calcium [Lipitor] 40 mg PO BEDTIME 01/24/20 Famotidine [Pepcid] 20 mg PO DAILY 01/24/20 Finasteride [Proscar] 5 mg PO DAILY 01/24/20 Furosemide [Lasix] 40 mg PO DAILY 01/24/20 Glimepiride [Amaryl] 1 mg PO DAILY 01/24/20 Iron Fum & Ps Cmp/Vit C & B [Integra Capsule] 1 cap PO DAILY 01/24/20 Levothyroxine [Synthroid] 250 mcg PO [id number] 01/24/20 Metoprolol Tartrate [Lopressor] 25 mg PO DAILY 01/24/20 Tamsulosin [Flomax] 0.4 mg PO DAILY 01/24/20 predniSONE [Deltasone] 5 mg PO SEECOM 01/24/20 - Past Medical/Surgical History Diabetic: Yes -: HTN -: NIDDM -: Inflammation of the Pancreas -: Hypothyroidism -: Kidney Insufficiency -: Gout -: Double Bypass - Family History Mother Medical History: Cancer Notes: Stomach Cancer Father Notes: Heart Attack - Social History Alcohol use: No CD- Drugs: No Caffeine use: Yes Place of Residence: Home Physical Examination Temp Pulse Resp BP Pulse Ox 97.2 F 56 16 137/62 99 01/25/20 08:00 01/25/20 08:02 01/25/20 08:00 01/25/20 08:02 01/25/20 08:00
[2020-01-25] MEDS: PANTOPRAZOLE 40MG TABLET PO SCH (10:21)
[2020-01-25] MEDS: NACHLORIDE 0.45% 1,000 ML IV SCH (10:50)
[2020-01-25] MEDS: CEFTRIAXONE/SWI 1gm 1 GM/10 ML SYR IV SCH (14:18)
[2020-01-25 14:53] LABS: Potassium 4.2 mmol/L (3.5-5.1)
[2020-01-25] MEDS ORDERED: ENOXAPARIN 30 MG/0.3 ML SQ SCH (17:00)
--- NOTE | 2020-01-25 17:58 | PN ---
Date of Progress Note: 01/25/2020 Subjective: Patient seen and examined, chart reviewed, and case discussed with RN and Dr. Harris. Patient denies any acute events overnight. Does not have any complaints. Medications: List reviewed. Physical Examination: Vital Signs: Temperature 97.2, heart rate 56, blood pressure 137/62, respirations 16, O2 of 99% on r oom air. General: Awake, alert, oriented x3. Elderly male, does not appear to be in any distress, frail, cac hectic, BMI 18. CV: S1, S2. Regular rate and rhythm. Peripheral pulses present. Respiratory: Moving air well bilaterally. No wheezing or stridor. Gastrointestinal: Abdomen is soft, nontender, nondistended. Positive bowel sounds. Extremities: No clubbing, cyanosis, or edema. Neuro: Cranial nerves 2 through 12 intact grossly. No focal neurological deficit. Speech is normal . Skin: No rashes. Normal skin turgor. Laboratory Data: Sodium 148, potassium 3.3, chloride 121, CO2 of 16, BUN 40, creatinine 2.22, glucos e 75, calcium 6.2, magnesium 1.5, total bilirubin 0.3, AST 11, ALT 13, albumin 1.8. CA 19-9 is pendi ng. WBC 1.5, H and H 7.7 and 24.6, platelets 149, neutrophils 50.9%. Urine culture growing out 4+ g reynold-negative rods. Assessment: An 84-year-old male with: 1.Acute kidney injury, improving. We will adjust IV fluids. 2.Hypocalcemia. Replace. Continue Rocaltrol. 3.Hypernatremia. We will adjust IV fluids to D5 half NS. 4.Hypokalemia. We will replace and monitor. 5.Acidosis. We will initiate bicarb if worsening. 6.Myelodysplastic syndrome, stable. Patient follows with Oncology as outpatient. Received Procrit. 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 Seen by GI. MRCP also shows pancreatic duct dilatat ion, nonspecific mass in the uncinate process. Patient will need biopsy and surgical intervention if wishes to continue treatment and further diagnosis. Patient not a candidate for chemotherapy due to his myelodysplastic syndrome. 8.Acute cystitis without hematuria secondary to gram-negative rods. We will start on Rocephin. Fol low up on cultures. Plan: We will continue to monitor electrolytes and kidney function and likely discharge in a.m. depe nding on clinical improvement. /KEYLA Voice ID: [id number] Report ID: [id number]
[2020-01-25] MEDS: NEPRO SHAKE 237 ML CAN PO SCH (21:38)
[2020-01-25] MEDS: ATORVASTATIN 40 MG TAB PO SCH (21:38)
[2020-01-26] MEDS: NACHLORIDE 0.45% 1,000 ML IV SCH (02:20)
[2020-01-26 02:48] VITALS: O2SAT 99
[2020-01-26] MEDS: LEVOTHYROXINE SOD 0.125 MG TAB PO SCH (05:09)
[2020-01-26 05:27] LABS: Absolute Lymphocytes (CBC) 0.7 K/uL (0.7-4.9); Basophils % 0.7 % (0-1.3); Hematocrit 27.3 % (39.6-49.0); MPV 10.9 fL (7.6-11.3); RBC Red Blood Cell Count 2.66 M/uL (4.33-5.43)
[2020-01-26 06:02] LABS: Bilirubin Total 0.3 mg/dL (0.2-1.0); Phosphorus 3.5 mg/dL (2.5-4.9); Potassium 3.8 mmol/L (3.5-5.1)
[2020-01-26] MEDS: INSULIN -REGULAR HUMAN 50 UNIT/0.5 ML ML SQ SCH (07:30)
[2020-01-26] MEDS ORDERED: POTASSIUM CL SA 10 MEQ TAB PO ONE (09:00)
[2020-01-26] MEDS: NEPRO SHAKE 237 ML CAN PO SCH (09:00)
[2020-01-26 09:27] VITALS: BP 143/66; TEMP 97.5
[2020-01-26] MEDS: CALCITROL 0.25 MCG CAP PO SCH (10:01)
[2020-01-26] MEDS: CEFTRIAXONE/SWI 1gm 1 GM/10 ML SYR IV SCH (10:02)
[2020-01-26] MEDS: METOPROLOL TAR 25 MG TAB PO SCH (10:02)
[2020-01-26] MEDS: ASPIRIN 81 MG CHEWABLE TABLET PO SCH (10:02)
[2020-01-26] MEDS: FINASTERIDE 5 MG TAB PO SCH (10:02)
[2020-01-26] MEDS: PANTOPRAZOLE 40MG TABLET PO SCH (10:03)
[2020-01-26] MEDS: TAMSULOSIN 0.4 MG SR CAP PO SCH (10:03)
[2020-01-26] MEDS: GLIMEPIRIDE 2 MG TABLET PO SCH (10:03)
--- NOTE | 2020-01-26 15:19 | DS ---
Date of Discharge: 01/26/2020 Consultants: 1. Dr. Varela with Oncology. 2. Dr. Gordon with Nephrology. 3. Dr. Harris with GI. Admitting Diagnoses: 1. Acute kidney injury. 2. Pancreatic mass. 3. Hypocalcemia. 4. Anemia. 5. Hypomagnesemia. 6. Neutropenia. 7. Essential hypertension. 8. Myelodysplastic syndrome. Discharge Diagnoses: 1. Acute kidney injury, improving, back to baseline. Patient has chronic kidney disease stage 3. 2. 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 3. Acute cystitis without hematuria secondary to Enterobacter cloacae. 4. Metabolic acidosis. Resolved 5. Myelodysplastic syndrome. Stable 6. Severe protein-calorie malnutrition. 7. Essential hypertension. Stable 8. Anemia. Secondary to MDS. Stable Hospital Course: Patient is an 84-year-old male with past medical history of myelodysplastic syndrome, gets Retacrit shots biweekly, diabetes, hypothyroidism, hyperlipidemia, BPH, GERD, comes in with previous history of inflammation of the pancreas, comes in with pancreatic mass and abnormal labs, was sent by his oncologist to the ER. He was found to have hypocalcemia, acute kidney injury, neutropenia, anemia. CT scan of the abdomen and pelvis showed pancreatic mass suspicious for malignancy. Therefore, patient was admitted to the hospital. Patient's electrolytes were corrected. He was started on sliding scale insulin for his diabetes. CA 19-9 antigen was sent off, which is a send out lab still not back. His electrolytes improved including his calcium and magnesium. His potassium was also replaced. He did have some elevated kidney function due to acute kidney injury likely due to prerenal azotemia. He does have history of chronic kidney disease stage 3. IV fluids were started. His kidney function improved and came back to baseline of about 2.2. He was seen by Nephrology, Dr. Gordon. He was given the Retacrit shot in the hospital. His anemia and MDS remained stable. He was not given any Lovenox for DVT prophylaxis due to his anemia and as he was ambulatory. Patient did have abnormal UA and was found to have Enterobacter in the urine culture. This was treated with Rocephin and patient will finish up course of Cipro at home. Dr. Harris with GI was also consulted. MRCP was done to further elucidate this pancreatic mass which showed significant irregular dilatation of the pancreatic duct with 3 x 5 cm nonspecific mass in the region of the uncinate process. Neoplasm is favored. IPMN may be considered in this age group. Patient did not need ERCP as he is not having any blockage. Additionally, GI did not recommend any ERCP as it would be difficult to biopsy from that. Patient likely needs push endoscopy or radiology with CT assisted biopsy. Patient also has incidental finding of cholelithiasis. There was mild dilatation of the CBD without stone. Patient did not have any right upper quadrant abdominal pain. Patient otherwise improved. His electrolytes were better and were corrected. His kidney function was back to baseline. He does have protein-calorie malnutrition and will need to be on protein supplementation. He is very cachectic with BMI of 18. Patient needs to follow up with his oncologist, Dr. Varela, to be referred for biopsy to further elucidate this pancreatic mass. He is not a candidate for chemotherapy or radiation therapy due to his myelodysplastic syndrome. Followup: Follow up with multimedia authoring specialist, Dr. Gordon, in 2 weeks. Follow up with GI, Dr. Harris, in 2 weeks. Follow up with primary care physician in 2 to 3 days. Patient needs to follow up with his oncologist, Dr. Varela, to be referred for biopsy to further elucidate this pancreatic mass. Return to ER for worsening condition. Diet: Diabetic. Activity: As tolerated. Medications: As per medication reconciliation list. Finish off course of Cipro for UTI and patient will be on calcium supplementation. Physical Examination: General: Awake, alert, oriented x3. Elderly male, frail, cachectic. CV: S1, S2. Respiratory: Moving air well bilaterally. Abdomen: Soft, nontender, nondistended. Positive bowel sounds. Extremities: No clubbing, cyanosis, or edema. Neurologic: Nonfocal. Total time spent discharging the patient was 38 minutes. SA/MODL Voice ID: [id number] Report ID: [id number] ESTHER
== END 2020-01-26 10:54 | disposition home or self-care (01) | DRG 374 ==
LOC: ER 17:47 → ERHOLD 01-24 00:23 → 2ND 01-24 01:22
PROVIDERS: ADMIT Internal Medicine; ATTEND Family Medicine
DX: D49.0 Neoplasm of unspecified behavior of digestive system (principal); E43 Unspecified severe protein-calorie malnutrition; N17.9 Acute kidney failure, unspecified; Z68.1 Body mass index [BMI] 19.9 or less, adult; E87.2 Acidosis; E87.0 Hyperosmolality and hypernatremia; N30.00 Acute cystitis without hematuria; E03.9 Hypothyroidism, unspecified; E83.51 Hypocalcemia; E83.42 Hypomagnesemia; E86.0 Dehydration; E11.22 Type 2 diabetes mellitus with diabetic chronic kidney disease; I12.9 Hypertensive chronic kidney disease with stage 1 through stage 4 chronic kidney disease, or unspecified chronic kidney disease; I25.10 Atherosclerotic heart disease of native coronary artery without angina pectoris; E87.6 Hypokalemia; B96.89 Other specified bacterial agents as the cause of diseases classified elsewhere; N18.3 Chronic kidney disease, stage 3 (moderate); K21.9 Gastro-esophageal reflux disease without esophagitis; R79.89 Other specified abnormal findings of blood chemistry; Z79.82 Long term (current) use of aspirin; Z79.890 Hormone replacement therapy; Z20.828 Contact with and (suspected) exposure to other viral communicable diseases; Z79.52 Long term (current) use of systemic steroids; Z79.899 Other long term (current) drug therapy; Z79.84 Long term (current) use of oral hypoglycemic drugs
CPT/HCPCS: 36415; 71045; 71250; 74176; 74181; 80048; 80053; 80076; 81003; 82947; 83690; 83735; 83880; 84100; 84132; 84484; 85025; 86301; 86850; 86900; 86901; 87077; 87086; 87088; 87186; 93005; 96361; 96365; 96375; 99211; 99285; J0610; J0696; J3475; J7030; J7512; Q5106; U0002

== ENCOUNTER 2020-04-08 15:06 | Inpatient (IN) | payer OTHER ==
--- OUTSIDE RECORDS SUMMARY | 2020-04-08 15:09 | XMS REPORT | Clinical Summary ---
:1935 Author Organization [facility] Address [address] [place] [address] Care Team Providers Name Role Phone MD [...] of 2 - PCV13) 2001 INFLUENZA VACCINE 05/15/2020 Results Not on fileafter 04/08/2019 Advance Directives For more information, please contact: [phone] Type Date Recorded Patient Cotton Chopper Explanati on Advance Directives, Living Will and Medical Power of Sap Project Manager
--- OUTSIDE RECORDS SUMMARY | 2020-04-08 15:09 | XMS REPORT | Continuity of Care Document ---
:1935 Author Organization [facility] t Address [address] [place] [address] Care Team Providers Name Role Phone Seth GOMEZ Primary Care Physician Lab, Covid Attending Clinician Unavailable Seth GOMEZ, R Attending Clinician Lab, Fam Pob I Attending Clinician Unavailable Only, Test Attending Clinician Unavailable Problems Condition Condition Condition Status Onset Resolution Last Treating Co mments Source Name Details Category Date Date Treatment Clinician Date MDS MDS Disease Active 2017-08 Jefferson (myelodysp (myelodysp 2-12 Me thodi lastic lastic 00:00: st syndrome) syndrome) 00 Allergies, Adverse Reactions, Alerts This patient has no known allergies or adverse reactions. Social History Social Habit Start Date Stop Date Quantity Comments Source Sex Assigned At [facility] Medications This patient has no known medications. Procedures This patient has no known procedures. Plan of Care Planned Activity Planned Date Details Comments Source Future Scheduled 2020-05-15 INFLUENZA VACCINE [place] [facility] 00:00:00 [code = INFLUENZA VACCINE] Future Scheduled 2001 65+ PNEUMOCOCCAL [place] [facility] 00:00:00 VACCINE (1 of 2 - PCV13) [code = 65+ PNEUMOCOCCAL VACCINE (1 of 2 - PCV13)] Future Scheduled 1986 SHINGLES VACCINES (#1) H kristel [facility] Test 00:00:00 [code = SHINGLES VACCINES (#1)] Encounters Start End Encounter Admission Attending Care Care Encounter Source Date/Time Date/Time Type Type Clinicians Facility Department ID 2020-04-01 2020-04-01 Outpatient [facility] [id number] [facility] 12:32:00 12:32:00 2020-03-24 2020-03-24 Letter Lab, [facility] [id number] 00:00:00 00:00:00 (Out) [facility] [id number] [place] [id number] [facility] [phone] [address] 2020-03-22 2020-03-22 Telephone Cleve LINDSEY [id number] 00:00:00 00:00:00 Fercho dos santos [id number] [facility] [id number] 2020-03-20 2020-03-20 Laboratory Lab, [facility] [id number] 15:44:50 16:04:50 Only Fam Pob I Health [id number] [place] [id number] [facility] [phone] [address] 2020-02-06 2020-02-06 Laboratory Only, [facility] [id number] 08:22:46 08:37:46 Only Test [place] [id number] [place] [id number] [place] [phone] [id number] Results This patient has no known results.
[2020-04-08 17:05] LABS: Absolute Lymphocytes (CBC) 0.5 K/uL (0.7-4.9); Basophils % 0.1 % (0-1.3); Lymphocytes % 25.5 % (15.3-44.8); MPV 9.8 fL (7.6-11.3); RBC Red Blood Cell Count 2.13 M/uL (4.33-5.43)
[2020-04-08 17:08] LABS: Albumin 2.7 g/dL (3.4-5.0); Bilirubin Direct 0.1 mg/dL (0-0.2); Bilirubin Total 0.3 mg/dL (0.2-1.0); Magnesium 1.6 mg/dL (1.8-2.4); Protein, Total 6.8 g/dL (6.4-8.2); Thyroid Stimulating Hormone 8.91 uIU/mL (0.360-3.740)
[2020-04-08 17:09] LABS: Potassium 5.8 mmol/L (3.5-5.1)
--- NOTE | 2020-04-08 17:23 | EDPHYS ---
Physician Documentation [facility] Name: Dennys Eden Jr Age: 84 yrs Sex: Male : 1935 Arrival Date: 04/08/2020 Time: 15:10 Bed 14 Private MD: Fercho Nicole R ED Physician Ashok Whaley HPI: 04/08 16:51 This 84 yrs old Male presents to ER via Ambulatory with complaints of Sent By miladis Varela. 16:51 anemia, hx of MDS. Onset: The symptoms/episode began/occurred 1 day(s) ago. Severity of miladis symptoms: At their worst the symptoms were mild in the emergency department the symptoms are unchanged. The patient has not experienced similar symptoms in the past. Historical: - Allergies: 15:28 No Known Allergies; ll1 - PMHx: 15:28 Diabetes - NIDDM; Hypothyroidism; Hypertension; Kidney insufficiency; ll1 - Immunization history:: Flu vaccine is up to date. - Social history:: Smoking status: Patient denies any tobacco usage or history of. Patient/guardian denies using alcohol, street drugs. - Family history:: not pertinent. ROS: 16:51 Constitutional: Negative for fever, chills, and weight loss, Eyes: Negative for injury, miladis pain, redness, and discharge, ENT: Negative for injury, pain, and discharge, Neck: Negative for injury, pain, and swelling, Cardiovascular: Negative for chest pain, palpitations, and edema, Respiratory: Negative for shortness of breath, cough, wheezing, and pleuritic chest pain, Abdomen/GI: Negative for abdominal pain, nausea, vomiting, diarrhea, and constipation, Back: Negative for injury and pain, : Negative for injury, bleeding, discharge, and swelling, MS/Extremity: Negative for injury and deformity, Neuro: Negative for headache, weakness, numbness, tingling, and seizure, Psych: Negative for depression, anxiety, suicide ideation, homicidal ideation, and hallucinations, Allergy/Immunology: Negative for hives, rash, and allergies, Endocrine: Negative for neck swelling, polydipsia, polyuria, polyphagia, and marked weight changes, Hematologic/Lymphatic: Negative for swollen nodes, abnormal bleeding, and unusual bruising. 16:51 Skin: Positive for pallor. Exam: 16:51 Constitutional: This is a well developed, well nourished patient who is awake, alert, miladis and in no acute distress. Head/Face: Normocephalic, atraumatic. ENT: Nares patent. No nasal discharge, no septal abnormalities noted. Tympanic membranes are normal and external auditory canals are clear. Oropharynx with no redness, swelling, or masses, exudates, or evidence of obstruction, uvula midline. Mucous membranes moist. Neck: Trachea midline, no thyromegaly or masses palpated, and no cervical lymphadenopathy. Supple, full range of motion without nuchal rigidity, or vertebral point tenderness. No Meningismus. Chest/axilla: Normal chest wall appearance and motion. Nontender with no deformity. No lesions are appreciated. Cardiovascular: Regular rate and rhythm with a normal S1 and S2. No gallops, murmurs, or rubs. Normal PMI, no JVD. No pulse deficits. Respiratory: Lungs have equal breath sounds bilaterally, clear to auscultation and percussion. No rales, rhonchi or wheezes noted. No increased work of breathing, no retractions or nasal flaring. Abdomen/GI: Soft, non-tender, with normal bowel sounds. No distension or tympany. No guarding or rebound. No evidence of tenderness throughout. Back: No spinal tenderness. No costovertebral tenderness. Full range of motion. Male : Normal genitalia with no discharge or lesions. MS/ Extremity: Pulses equal, no cyanosis. Neurovascular intact. Full, normal range of motion. Neuro: Awake and alert, GCS 15, oriented to person, place, time, and situation. Cranial nerves II-XII grossly intact. Motor strength 5/5 in all extremities. Sensory grossly intact. Cerebellar exam normal. Normal gait. Psych: Awake, alert, with orientation to person, place and time. Behavior, mood, and affect are within normal limits. 16:51 Eyes: Conjunctiva: pale. 16:51 Skin: Appearance: Color: pale, Temperature: normal temperature, Moisture: normal moisture, petechiae, not noted, ecchymosis, not noted, diaphoresis is not appreciated, abscess, not appreciated, cellulitis, is not appreciated, induration, is not appreciated. 18:17 ECG was reviewed by the Attending Physician. [facility] 19:30 Abdomen/GI: Inspection: abdomen appears normal, Bowel sounds: normal, Palpation: [facility] abdomen is soft and non-tender, Rectal exam: Prostate: normal, rectal tone normal, Stool: guaiac positive, no gross blood, no melena. Vital Signs: 15:26 BP 171 / 66; Pulse 63; Resp 17; Temp 97.9; Pulse Ox 100% ; Pain 0/10; ll1 16:30 BP 150 / 61; Pulse 55; Resp 20; Pulse Ox 100% on R/A; jr10 19:00 BP 136 / 64; Pulse 70; Resp 13; Pulse Ox 100% ; vc 19:30 BP 132 / 75; Pulse 79; Resp 13; Pulse Ox 100% on R/A; vc MDM: 16:42 Patient medically screened. [facility] 16:56 Data reviewed: vital signs, nurses notes, lab test result(s), EKG, radiologic studies. [facility] Data interpreted: ekg monitor tech: rate is 55 beats/min, rhythm is regular, Pulse oximetry: on room air is 100 %. Test interpretation: by ED physician or midlevel provider: ECG, plain radiologic studies. Counseling: I had a detailed discussion with the patient and/or guardian regarding: the historical points, exam findings, and any diagnostic results supporting the discharge/admit diagnosis, lab results, radiology results, the need for further work-up and treatment in the hospital. Other consultation: LOIS VARELA, TRANSFUSE, ALSO MM, BENIGN PANCREATIC MASS. 04/08 15:46 Order name: Basic Metabolic Panel; Complete Time: 19:08 snw 04/08 15:46 Order name: CBC with Diff snw 04/08 15:46 Order name: Hepatic Function; Complete Time: 19:08 snw 04/08 15:46 Order name: TS snw 04/08 15:46 Order name: TSH; Complete Time: 19:08 snw 04/08 16:34 Order name: Magnesium; Complete Time: 19:08 EDMS 04/08 16:54 Order name: Glucose, Ancillary Testing; Complete Time: 16:57 EDMS 04/08 16:59 Order name: Bb Add On bd 04/08 17:01 Order name: NT PRO-BNP; Complete Time: 19:08 [facility] 04/08 17:01 Order name: Troponin (emerg Dept Use Only); Complete Time: 19:08 [facility] 04/08 17:01 Order name: Lipase; Complete Time: 19:08 [facility] 04/08 17:10 Order name: T4 Free; Complete Time: 19:08 [facility] 04/08 17:33 Order name: Packed RBC Leukored [facility] 04/08 17:55 Order name: Urinalysis [facility] 04/08 17:55 Order name: CBC with Automated Diff [facility] 04/08 17:55 Order name: CBC with Automated Diff [facility] 04/08 17:55 Order name: Comprehensive Metabolic Panel [facility] 04/08 17:55 Order name: Comprehensive Metabolic Panel [facility] 04/08 17:55 Order name: Lactate EDMS 04/08 17:55 Order name: Lactate EDMS 04/08 17:55 Order name: Magnesium [facility] 04/08 17:55 Order name: Magnesium [facility] 04/08 17:55 Order name: NT PRO-BNP [facility] 04/08 17:55 Order name: NT PRO-BNP [facility] 04/08 17:55 Order name: Phosphorus [facility] 04/08 17:55 Order name: Phosphorus [facility] 04/08 17:56 Order name: Protime (+INR) [facility] 04/08 17:56 Order name: Protime (+INR) [facility] 04/08 15:46 Order name: FSBS; Complete Time: 16:43 [facility] 04/08 15:46 Order name: IV Saline Lock; Complete Time: 16:29 [facility] 04/08 15:46 Order name: Labs collected and sent; Complete Time: 16:29 [facility] 04/08 17:01 Order name: XRAY Chest (1 view) [facility] 04/08 17:01 Order name: EKG; Complete Time: 17:02 [facility] 04/08 17:01 Order name: Cardiac monitoring; Complete Time: 17:12 [facility] 04/08 17:01 Order name: EKG - Nurse/Tech; Complete Time: 18:17 [facility] 04/08 17:01 Order name: O2 Per Protocol; Complete Time: 17:12 [facility] 04/08 17:01 Order name: O2 Sat Monitoring; Complete Time: 17:12 [facility] 04/08 17:17 Order name: CT Stone Protocol; Complete Time: 19:08 [facility] 04/08 17:19 Order name: Bravo; Complete Time: 18:17 [facility] 04/08 17:20 Order name: IV Saline Lock - Large Bore; Complete Time: 17:22 [facility] 04/08 17:55 Order name: CONS Physician Consult [facility] 04/08 17:55 Order name: Renal [facility] 04/08 17:56 Order name: PTT, Activated Partial Thromb [facility] 04/08 17:56 Order name: PTT, Activated Partial Thromb [facility] 04/08 17:56 Order name: Renal Ultrasound-Complete [facility] 04/08 20:00 Order name: Chem 7: call attending with results miladis EC:17 Rate is 58 beats/min. Rhythm is regular. QRS Sledge is Normal. MN interval is normal. QRS miladis interval is normal. QT interval is normal. No Q waves. T waves are Normal. No ST changes noted. Clinical impression: Sinus bradycardia and No evidence of ischemia. Interpreted by me. Reviewed by me. Administered Medications: 17:50 Drug: NS 0.9% 1000 ml Route: IV; Rate: 125 ml/hr; Site: right forearm; jr10 20:04 Follow up: IV Status: Infusion continued upon admission vc 17:50 Drug: Pepcid 20 mg Route: IVP; Site: right forearm; jr10 18:16 Follow up: Response: No adverse reaction jr10 17:54 Drug: Albuterol 5 mg Route: Inhalation; jr10 18:16 Follow up: Response: No adverse reaction jr10 17:54 Drug: AtroVENT Aerosol 0.5 mg Route: Inhalation; jr10 18:16 Follow up: Response: No adverse reaction jr10 17:54 Drug: Magnesium Sulfate 1 grams Route: IVPB; Infused Over: 1 hrs; Site: right forearm; jr10 19:27 Follow up: Response: No adverse reaction; IV Status: Completed infusion jr10 18:17 Drug: Kayexalate 30 grams Route: PO; jr10 19:28 Follow up: Response: No adverse reaction jr10 20:03 Drug: ProTONIX 40 mg Route: IVP; Site: right antecubital; vc 20:04 Follow up: Response: No adverse reaction vc Disposition: 04/08/20 17:22 Hospitalization ordered by Leonardo Castillo for Inpatient Admission. Preliminary diagnosis are Anemia, unspecified, Hyperkalemia, Hypomagnesemia, Acute kidney failure - on chronic, Unspecified abdominal pain - mass head of pancrease, Gastrointestinal hemorrhage, unspecified. - Bed requested for Telemetry/MedSurg (Inpatient). - Status is Inpatient Admission. vc - Condition is Fair. - Problem is new. - Symptoms have improved. Signatures: Dispatcher [employer] EDMS Elva Little Ashok Whaley MD MD cha Waters, Shelly, TRIAL MANAGEMENT ASSOCIATE-C TRIAL MANAGEMENT ASSOCIATE-Csnw Gillian Arevalo RN RN vc Rimma Haney RN RN ll1 Joy Treviño RN RN jr10 Corrections: (The following items were deleted from the chart) 16:34 15:49 MAGNESIUM+C.LAB.BRZ ordered. EDMS EDMS 17:18 17:02 MAGNESIUM+C.LAB.BRZ ordered. EDAK EDMS 18:52 17:22 Hospitalization Ordered by Leonardo Castillo MD for Inpatient Admission. Preliminary bd diagnosis is Anemia, unspecified; Hyperkalemia; Hypomagnesemia; Acute kidney failure - on chronic. Bed requested for Telemetry/MedSurg (Inpatient). Status is Inpatient Admission. Condition is Fair. Problem is new. Symptoms have improved. miladis 19:10 18:52 04/08/2020 17:22 Hospitalization Ordered by Leonardo Castillo MD for Inpatient miladis Admission. Preliminary diagnosis is Anemia, unspecified; Hyperkalemia; Hypomagnesemia; Acute kidney failure - on chronic. Bed requested for Telemetry/MedSurg (Inpatient). Status is Inpatient Admission. Condition is Fair. Problem is new. Symptoms have improved. bd 19:31 19:10 04/08/2020 17:22 Hospitalization Ordered by Leonardo Castillo MD for Inpatient miladis Admission. Preliminary diagnosis is Anemia, unspecified; Hyperkalemia; Hypomagnesemia; Acute kidney failure - on chronic; Unspecified abdominal pain - mass head of pancrease. Bed requested for Telemetry/MedSurg (Inpatient). Status is Inpatient Admission. Condition is Fair. Problem is new. Symptoms have improved. miladis 20:18 19:31 04/08/2020 17:22 Hospitalization Ordered by Leonardo Castillo MD for Inpatient vc Admission. Preliminary diagnosis is Anemia, unspecified; Hyperkalemia; Hypomagnesemia; Acute kidney failure - on chronic; Unspecified abdominal pain - mass head of pancrease; Gastrointestinal hemorrhage, unspecified. Bed requested for Telemetry/MedSurg (Inpatient). Status is Inpatient Admission. Condition is Fair. Problem is new. Symptoms have improved. miladis
--- NOTE | 2020-04-08 17:23 | ER ---
Nurse's Notes [facility] Name: Dennys Eden Jr Age: 84 yrs Sex: Male : 1935 Arrival Date: 04/08/2020 Time: 15:10 Bed 14 Private MD: Fercho Nicole R Diagnosis: Anemia, unspecified;Hyperkalemia;Hypomagnesemia;Acute kidney failure-on chronic;Unspecified abdominal pain-mass head of pancrease;Gastrointestinal hemorrhage, unspecified Presentation: 04/08 15:26 Chief complaint: Patient states: Sent by Dr. Moses for blood count being low. His 1 labs were drawn Tuesday. He reports generalized weakness, no appetite, and weight loss. No cough or fever. Coronavirus screen: Client denies travel out of the [place] in the last 14 days. At this time, the client does not indicate any symptoms associated with coronavirus-19. The client reports previous COVID testing was negative. Ebola Screen: Patient denies travel to an Ebola-affected area in the 21 days before illness onset. No symptoms or risks identified at this time. Initial Sepsis Screen: Does the patient meet any 2 criteria? No. Patient's initial sepsis screen is negative. Risk Assessment: Do you want to hurt yourself or someone else? Patient reports no desire to harm self or others. Onset of symptoms was April 07, 2020. 15:26 Method Of Arrival: Ambulatory ll1 15:26 Acuity: RANDI 3 ll1 Historical: - Allergies: 15:28 No Known Allergies; ll1 - PMHx: 15:28 Diabetes - NIDDM; Hypothyroidism; Hypertension; Kidney insufficiency; ll1 - Immunization history:: Flu vaccine is up to date. - Social history:: Smoking status: Patient denies any tobacco usage or history of. Patient/guardian denies using alcohol, street drugs. - Family history:: not pertinent. Screenin:31 Abuse screen: Denies threats or abuse. Denies injuries from another. Nutritional jr10 screening: No deficits noted. Tuberculosis screening: No symptoms or risk factors identified. Fall Risk None identified. Assessment: 16:32 General: Appears in no apparent distress. Behavior is calm, cooperative, appropriate jr10 for age. Pain: Denies pain. Neuro: No deficits noted. Level of Consciousness is awake, alert, obeys commands, Oriented to person, place, time, situation, Appropriate for age. Cardiovascular: No deficits noted. Denies chest pain, Rhythm is sinus bradycardia. Respiratory: Reports shortness of breath at rest Airway is patent Respiratory effort is even, labored, Respiratory pattern is regular, symmetrical, Breath sounds are clear bilaterally. the patient has mild shortness of breath. GI: Abdomen is flat, Bowel sounds present X 4 quads. Reports intolerance of fluids, intolerance of food, nausea, vomiting, Patient currently denies diarrhea. : No deficits noted. No signs and/or symptoms were reported regarding the genitourinary system. EENT: No deficits noted. No signs and/or symptoms were reported regarding the EENT system. Derm: Bruising that is dark purple, scattered bruising noted to memo upper extremities, denies the use of blood thinners; recently diagnosed with myeloma. Musculoskeletal: Reports weakness in generalized. 16:44 Reassessment: Pt family contact information: Milla (daughter): [phone]. jr10 19:00 Reassessment: Assumed care from CHRIS Hamilton. vc 19:46 Reassessment: Report called to CHRIS Lara. vc 19:47 Reassessment: Spoke with Milla, patient's daughter, updated on plan of care for patient.lp1 20:04 Reassessment: Patient and/or family updated on plan of care and expected duration. Pain vc level reassessed. Patient is alert, oriented x 3, equal unlabored respirations, skin warm/dry/pink. Patient denies pain at this time. Vital Signs: 15:26 BP 171 / 66; Pulse 63; Resp 17; Temp 97.9; Pulse Ox 100% ; Pain 0/10; ll1 16:30 BP 150 / 61; Pulse 55; Resp 20; Pulse Ox 100% on R/A; jr10 19:00 BP 136 / 64; Pulse 70; Resp 13; Pulse Ox 100% ; vc 19:30 BP 132 / 75; Pulse 79; Resp 13; Pulse Ox 100% on R/A; vc ED Course: 15:10 Patient arrived in ED. ag5 15:11 Fercho Nicole MD is Private Physician. ag5 15:27 Triage completed. ll1 15:28 Arm band placed on Patient placed in an exam room, on a stretcher. ll1 15:30 Joy Treviño, CHRIS is Primary Nurse. jr10 16:31 Patient has correct armband on for positive identification. Placed in gown. Bed in low jr10 position. Side rails up X2. bus monitor on. Pulse ox on. NIBP on. 16:32 No provider procedures requiring assistance completed. Inserted saline lock: 20 gauge jr10 in right forearm, using aseptic technique. IV is patent, is intact, with good blood return, Flushed. 16:32 Inserted saline lock: 20 gauge in left antecubital area, using aseptic technique. IV is jr10 patent, is intact, with good blood return, Flushed. 16:42 Ashok Whaley MD is Attending Physician. miladis 17:09 Notified ED physician of a critical lab result(s). CO2-13, creatinine-8.03, sv calcium-6.8, potassium-5.8. 17:21 Leonardo Castillo MD is Hospitalizing Provider. miladis 17:43 CT Stone Protocol In Process Unspecified. EDMS 18:10 XRAY Chest (1 view) In Process Unspecified. EDMS 18:20 Bravo cath inserted, using sterile technique, 18 Fr., by id, balloon inflated, to jp3 gravity drainage, Patient tolerated well. 19:27 Report given to CHRIS French. jr10 20:06 Patient admitted, IV remains in place. vc Administered Medications: 17:50 Drug: NS 0.9% 1000 ml Route: IV; Rate: 125 ml/hr; Site: right forearm; jr10 20:04 Follow up: IV Status: Infusion continued upon admission vc 17:50 Drug: Pepcid 20 mg Route: IVP; Site: right forearm; jr10 18:16 Follow up: Response: No adverse reaction jr10 17:54 Drug: Albuterol 5 mg Route: Inhalation; jr10 18:16 Follow up: Response: No adverse reaction jr10 17:54 Drug: AtroVENT Aerosol 0.5 mg Route: Inhalation; jr10 18:16 Follow up: Response: No adverse reaction jr10 17:54 Drug: Magnesium Sulfate 1 grams Route: IVPB; Infused Over: 1 hrs; Site: right forearm; jr10 19:27 Follow up: Response: No adverse reaction; IV Status: Completed infusion jr10 18:17 Drug: Kayexalate 30 grams Route: PO; jr10 19:28 Follow up: Response: No adverse reaction jr10 20:03 Drug: ProTONIX 40 mg Route: IVP; Site: right antecubital; vc 20:04 Follow up: Response: No adverse reaction vc Outcome: 17:22 Decision to Hospitalize by Provider. miladis 20:05 Admitted to Med/surg accompanied by tech, via stretcher, room 205. vc 20:05 Condition: good 20:05 Instructed on the need for admit. 20:18 Patient left the ED. vc Signatures: Dispatcher [employer] EDAngela Espinoza, RN RN Ashok Snider MD MD cha Pena, Laura, RN RN lp1 Mahad Morales Ajare ag5 Gillian Arevalo RN RN vc Lewis, Lynsay, RN RN ll1 Joy Treviño RN RN jr10
[2020-04-08 17:35] LABS: Lipase 15 U/L (73-393); NT PRO-BNP 7024 pg/mL (<450); Troponin (Emerg Dept Use Only) < 0.02 ng/mL (0.0-0.045)
[2020-04-08] MEDS ORDERED: IPRATROPIUM BROM 0.5MG/2.5ML ONE (17:49)
[2020-04-08] MEDS ORDERED: NA CHLORIDE 0.9% 1,000 ML ONE (17:50)
[2020-04-08] MEDS ORDERED: SOD POLYSTYREN SUL 15 GM/60 ML UCUP ONE (17:50)
[2020-04-08] MEDS ORDERED: MAGNESIUM SULFATE 1 gm IVPB 1 GM/100 ML BAG IV ONE (17:50)
[2020-04-08] MEDS ORDERED: ALBUTEROL 2.5 MG/3 ML NEB SOL ONE (17:50)
[2020-04-08] MEDS ORDERED: FAMOTIDINE 20 MG/2 ML VIAL IV ONE (17:50)
[2020-04-08] MEDS ORDERED: ONDANSETRON 4 MG/2 ML VIAL IV PRN (17:52)
[2020-04-08] MEDS ORDERED: ACETAMINOPHEN 500 MG TAB PO PRN (17:52)
--- NOTE | 2020-04-08 18:06 | RAD REPORT ---
EXAM DESCRIPTION: CT - Stone Protocol - 04/08/2020 5:42 pm CLINICAL HISTORY: ARF;Abd pain;Flank pain COMPARISON: Abdomen Pelvis Wo Contrast dated 01/15/2018; Ct Skull/Thigh dated 03/06/2020 TECHNIQUE: Axial [address] imaging of the abdomen and pelvis was performed without IV contrast. No IV contrast was given because of allergy, abnormal renal function, patient refusal or physician re quest. No oral contrast. All CT scans are performed using dose optimization technique as appropriate and may include automated exposure control or mA/KV adjustment according to patient size. FINDINGS: No suspicious findings in the lung bases. Left hemidiaphragm elevation present. Liver and spleen show no suspicious findings. At least 1 punctate gallstone is seen near the fundus. Gallbladder is not dilated. Wall of the gallbladder is mildly prominent but similar to comparison. Bi liary tree does not appear dilated. Again noted is pronounced pancreatic duct dilatation. Pancreatic parenchymal calcifications have deve loped at the head body junction. There is prominent heterogeneity around the pancreatic head and body junction with fullness and poor tissue plane demarcation. No hydronephrosis of the right kidney. No obstructing calculi. Atrophic left kidney shows no hydronephrosis or obstructing calculus. No new per inephric stranding. No hydronephrosis or suspicious renal mass. No significant adrenal finding. Isodense renal masses an d pyelonephritis cannot be excluded in the absence of IV contrast. The urinary bladder is without sig nificant finding. Large stool volume fills but does not dilate the colon. An acute colon process not suspected. Hyperde nse material in the colon is probably ingested medication or possibly contrast from an outside study. No acute stomach or small bowel abnormality. Duodenal C-loop and antrum of the stomach are not well defined at the boundary with the pancreas. No free air, free fluid or inflammatory stranding. No hernia, mass or bulky lymphadenopathy. No suspicious bony findings. Patient has advanced degenerative change in the lower lumbar spine. IMPRESSION: Mass in the head body junction of the pancreas matching the PET-CT finding of March 06. There is poor tissue plane differentiation between the pancreas, duodenum and stomach. Assessment is limited but the pancreatic mass is not clearly different from the March 06 PET-CT stud y. No acute bowel finding identified. Moderately large stool volume fills but does not dilate the colon. No free air, free fluid or surgically emergent finding. Full assessment is limited is the absence of IV contrast.
--- NOTE | 2020-04-08 19:35 | RAD REPORT ---
EXAM DESCRIPTION: RAD - Chest Single View - 04/08/2020 6:10 pm CLINICAL HISTORY: Cough;Dyspnea COMPARISON: Portable chest January 22 TECHNIQUE: AP portable chest image was obtained 04/08/2020 6:10 pm . FINDINGS: Lungs are clear. Interstitial pattern matches comparison. Sternotomy wires are in place. C ardiac leads overlie the chest. Trachea is midline. Heart and vasculature are normal. No measurable pleural effusion and no pneumotho rax. No acute bony abnormality seen. No acute aortic findings suspected. IMPRESSION: No acute cardiopulmonary process. No significant change from comparison.
[2020-04-08] MEDS ORDERED: PANTOPRAZOLE 40 MG INJ ONE (20:06)
[2020-04-08] MEDS ORDERED: NA CHLORIDE 0.9% 50 ML IV ONE (20:07)
--- NOTE | 2020-04-08 20:22 | RAD REPORT ---
EXAM DESCRIPTION: US - Renal Ultrasound-Complete - 04/08/2020 7:45 pm CLINICAL HISTORY: MARSHALL COMPARISON: Stone Protocol dated 04/08/2020 FINDINGS: The right kidney measures 10.1 x 4.8 x 4.4 cm. The left kidney measures 7.9 x 2.9 x 2.7 c m. Right renal cortical thickness and echogenicity are within range of normal. No right-sided hydrone phrosis or mass identified. Left kidney is atrophic relative to the right with thin cortex and lobula johnny contour. This matches the CT finding from earlier in the day. Increased cortical echogenicity of the left kidney is consistent with medical renal disease. No left-sided hydronephrosis or suspicious mass. Urinary bladder is contracted around a Bravo catheter. IMPRESSION: No hydronephrosis or suspicious mass of either kidney. Medical renal disease evident in an atrophic left kidney with thin echogenic cortex and lobulated con tour.
[2020-04-08 20:32] VITALS: BMI 17.3
[2020-04-08] MEDS: D5W 1,000 ML with NA BICARB 8.4% 100 MEQ IV SCH ×2 (20:53)
[2020-04-08 21:13] LABS: Anisocytosis 2+; Blood Morphology Comment NOTED (NOT SEEN); Platelet Estimate DECR; White Blood Cell Scan OK
[2020-04-08 21:15] LABS: Burr Cells FEW; Hypochromasia 1+; Macrocytosis 1+; Ovalocytes SLIGHT; Poikilocytosis 1+
[2020-04-08] MEDS: HEPARIN 5000 UNIT/ML 1 ML VIAL SQ SCH (21:17)
[2020-04-08 22:31] LABS: Potassium 5.9 mmol/L (3.5-5.1)
[2020-04-08] MEDS ORDERED: DIPHENHYDRAMINE 50 MG/ML VIAL IV ONE (22:57)
[2020-04-08] MEDS ORDERED: ACETAMINOPHEN 325 MG TABLET PO ONE (22:57)
[2020-04-08] MEDS ORDERED: NA CHLORIDE 0.9% 250 ML ONE (23:37)
[2020-04-09 01:19] LABS: Urine Appearance CLEAR; Urine Bilirubin NEGATIVE (NEG); Urine Blood 1+ (NEG); Urine Color YELLOW; Urine Glucose NEGATIVE (NEG); Urine Microscopic Reflex ORDER UMIC; Urine Protein TRACE (NEG); Urine Urobilinogen 0.2 mg/dL (0.2-1.0)
[2020-04-09 02:08] LABS: Urine Culture Reflex Order REFLEXED
[2020-04-09 02:09] LABS: Urine Bacteria <20 /HPF (NONE SEEN); Urine RBC <5 /HPF (NONE SEEN)
[2020-04-09] MEDS: HEPARIN 5000 UNIT/ML 1 ML VIAL SQ SCH ×2 (08:57→11:05)
[2020-04-09] MEDS: D5W 1,000 ML with NA BICARB 8.4% 100 MEQ IV SCH ×8 (08:57→17:40)
[2020-04-09 09:13] LABS: Absolute Lymphocytes (CBC) 0.4 K/uL (0.7-4.9); Basophils % 0.9 % (0-1.3); Lymphocytes % 25.3 % (15.3-44.8); MPV 9.4 fL (7.6-11.3)
[2020-04-09 09:18] LABS: Protime INR 1.08
[2020-04-09 09:41] LABS: Albumin 2.4 g/dL (3.4-5.0); Bilirubin Total 0.3 mg/dL (0.2-1.0); Magnesium 1.8 mg/dL (1.8-2.4); Potassium 4.6 mmol/L (3.5-5.1); Protein, Total 6.2 g/dL (6.4-8.2)
[2020-04-09 13:26] LABS: Urine Appearance CLEAR; Urine Bilirubin NEGATIVE (NEG); Urine Blood TRACE (NEG); Urine Color YELLOW; Urine Glucose TRACE (NEG); Urine Protein TRACE (NEG); Urine Urobilinogen 0.2 mg/dL (0.2-1.0)
--- NOTE | 2020-04-09 13:48 | EKG ---
Test Date: 2020-04-08 Test Time: 18:02:44 Registered Nurse Renal: DASHA MEASUREMENT RESULTS: Intervals: Rate: 58 MS: 128 QRSD: 88 QT: 404 QTc: 396 Creighton: P: 84 MS: 128 QRS: -38 T: 49 INTERPRETIVE STATEMENTS: Sinus bradycardia Left axis deviation Abnormal ECG Compared to ECG 01/23/2020 20:03:45 Sinus rhythm no longer present Incomplete right bundle-branch block no longer present ST (T wave) deviation no longer present Electronically Signed On 04-09-20 13:47:47 CDT by Yg Smith
[2020-04-09 14:04] LABS: Urine Microscopic Reflex ORDER UMIC; Urine Protein/Creatinine Ratio 1.2 ratio (<0.15)
[2020-04-09 14:12] LABS: Urine Bacteria <20 /HPF (NONE SEEN); Urine Culture Reflex Order NOT NEEDED; Urine Mucus 1+ /HPF (NONE SEEN)
--- NOTE | 2020-04-09 15:15 | CON ---
History Of Present Illness: This is an 84-year-old gentleman, well known to me from the office with significant past medical history of MDS, diabetes complicated with neuropathy and nephropathy, coronary artery disease complicated with congestive heart failure, hypertension; chronic kidney disease, baseline creatinine around 2, stage 3B. MDS, follow up with Dr. Varela, on treatment. An anemia secondary to MDS, questionable MM, pancreatic mass status post biopsy with negative serology. The patient was in his regular state of health, [facility]. Primary workup lab show elevation in BUN and creatinine with severe acidosis. For that reason patient was directed to the ER. The patient upon arrival to the ER, creatinine was up to 7.8 with pancytopenia. The patient denied taking any nonsteroidal, no IV contrast. The patient has no fever or chills. The patient apparently had COVID pneumonia couple of weeks ago, treated, observe closely, recover. Repeated testing was negative. Upon arrival to the hospital, the patient was started on IV hydration. Kidney function stay elevated. The patient had severe uremic symptoms with BUN up to 141. Past Medical History: Include: 1. MDS/MM, on acyclovir and fluconazole. 2. 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 3. Pancreatic mass status post biopsy, benign. 4. Diabetes complicated with neuropathy. 5. Coronary artery disease complicated with congestive heart failure. 6. Hypertension. 7. 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 8. Recurrent admission with acidosis, non-anion gap. Allergies: NO KNOWN DRUGS ALLERGY. Family History: Positive for cancer. Social History: Denies smoking. Denies drinking. Denies drugs abuse. Review of Systems: Head and Neck: No red eye. No ear pain. GI: Has nausea. No vomiting. : No polyuria. No dysuria. No hematuria. LOGISTICS LOSS PREVENTION MANAGER: Not applicable. Respiratory: No shortness of breath. Cardiovascular: No chest pain. Endocrine: No polydipsia. Skin: No rash. Neuro: Generalized fatigue. Musculoskeletal: Generalized body ache. Physical Examination: General: When I saw the patient, the patient looking pale. Vital Signs: Blood pressure 148/63, pulse of 52, afebrile. Chest: Clear to auscultation. Heart: S1 and S2. Systolic murmur. Abdomen: Soft and nontender. Extremities: No edema. Neurologic: Alert and oriented. No focal. The patient had some fainting tremor. Laboratory Data: Yesterday sodium 143, potassium 5.9, bicarb 9, chloride 119, BUN 149, creatinine 7.9, calcium 6.7, magnesium 1.8, phosphorus 6. Albumin 2.4. TSH 8.9. PC ratio is still pending. Current Medications: The patient on it includes: 1. Diphenhydramine. 2. Heparin. 3. Tylenol. 4. IV fluid. 5. Zofran. Assessment And Plan: 1. Acute kidney injury on advanced chronic kidney disease, nonoliguric, uremic with severe acidosis. I had long discussion with the patient regarding the treatment. The patient is going to need to initiate renal replacement therapy. Mostly the etiology secondary to progression of the disease/light chain disease supportive with high non-anion gap, metabolic acidosis with renal failure and significant proteinuria. I discussed the case with Dr. Brady. She agreed on the plan. I am going to go ahead and repeat urinalysis, protein, creatinine, and serology. We will proceed with dialysis, then after stabilizing the patient, the patient will go under kidney biopsy to evaluate for any light chain disease to decide about the optimal treatment given the finding on the bone marrow biopsy and the general condition for the patient. 2. Acidosis non-anion gap. Differential diagnosis secondary to renal tubular acidosis/light chain disease/renal failure. I am going to start the patient on bicarb drip and we will consider to discontinue after starting dialysis. 3. Hypertension, controlled, optimal. We will follow up blood pressure after dialysis. 4. Non-anion gap metabolic acidosis. As above, we will send for urine electrolyte. We will send for protein creatinine and we will follow up. 5. Anemia, multifactorial, secondary to renal failure/myelodysplastic syndromes. Discussed with Dr. Varela, who resume Procrit. 6. Hypocalcemia, mostly secondary to SHPT . I am going to start the patient on calcitriol. Corrected calcium is 8. No need for supplement. The patient is going to be dialyzed on high calcium bath. 7. Myelodysplastic syndromes and anemia. As above. Time spent 65 minutes. time spent for face to face care , placing order and dicussing with staff, other technology sales consultant and patient/ patient family 65 min BRIGHT Voice ID: [id number] Report ID: [id number] MTDD
--- NOTE | 2020-04-09 20:00 | CON ---
Date of Consultation: 04/09/2020 Brief History Of Present Illness: The patient is an 84-year-old man, known to Dr. Garnett from [facility] medical history of MDS; diabetes complicated with neuropathy and nephropathy; coronary artery di sease with CHF; hypertension; chronic CKD, baseline creatinine around 2, stage 3B; MDS, followed by Renaldo Varela, on treatment; anemia secondary to MDS; questionable multiple myeloma; pancreatic mass, status post biopsy with negative serology. The patient was in his regular state of health and he we nt to the Cancer [facility] and his workup showed an elevation of his BUN and creatinine with severe acid osis. As such, he was sent to the ER with a creatinine up to 7.8 and a significant pancytopenia. He denied taking any NSAIDs or IV contrast. He apparently had COVID pneumonia a couple of weeks ago, t reated, observed, and recovered. Repeat testing was negative. Upon arrival to the hospital, he was started on IV hydration. I am consulted to place a tunneled hemodialysis catheter on the patient. Past Medical History: Significant for MDS/MM, on acyclovir and fluconazole; chronic anemia secondary to MDS, on Procrit; pancreatic mass, status post biopsy, benign; diabetes complicated with neuropath y; coronary artery disease with congestive heart failure; hypertension; CKD stage 3B/4 secondary to d iabetic nephropathy; recurrent admissions with acidosis, non-anion gap. Allergies: NO KNOWN DRUG ALLERGIES. Family History: Positive for cancer. Social History: Denies smoking, alcohol, or recreational drug use. Review of Systems: Ten-point review of systems other than HPI, denies. Home Medications: Included aspirin chewable, Lipitor, , calcium carbonate, Pepcid, finaste ride, Diflucan, levothyroxine, Creon, Flomax, Valtrex, Levaquin, prednisone 5 mg p.o. daily . Physical Examination: Vital Signs: At the time of my examination, his vital signs were blood pressure 130/62, heart rate 4 8, respiratory rate 16, temperature 98.2. General: He is awake, alert, and oriented. Psychiatric: Appropriate, conversive. HEENT: He is normocephalic. Sclerae anicteric. Mucous membranes are moist. Oropharynx is clear. Neck: Supple. No JVD. Chest: Normal expansion and excursion. Cardiovascular: Regular rate and rhythm. Laboratory Data: He had a laboratory exam, reveals a hemoglobin of 9.2, hematocrit 28.0, white blood cell count is 1.7, platelet count was 56. His PT was 12.7, INR 1.08, PTT is 28.8. Sodium is 142, p otassium 4.6, chloride 114, carbon dioxide 15, BUN 41, creatinine 7.8, glucose is 114, lactic acid is 1.7, calcium 6.5, phosphorus 6.0, magnesium 1.8. Total bilirubin 0.3. AST is 12, ALT 13, alkaline phosphatase is 61. ProBNP is 6146. His lipase was 15 on admission. He had imaging performed, which included an abdomen CT, officially read as mass in the head, body, junction of the pancreas, matchin g PET-CT of March 06. Poor tissue plane differentiation between pancreas, duodenum, and stomach. P ancreatic mass is not clearly different from March 06 PET-CT. Moderate large stool colon . Assessment And Plan: This is an 84-year-old man, who has chronic renal failure with worsening kidney dysfunction. 1.Continue medical management. 2.I have been requested to place a tunneled hemodialysis catheter to initiate hemodialysis on the mn tient. As such, I have explained the risks, benefits, and alternatives of placement of a tunneled he modialysis catheter in the internal jugular vein including, but not limited to bleeding, infection, d amage to surrounding tissues, need for further operations and procedures, pneumothorax/collapsed lung . The patient agrees to proceed as indicated. Thank you for this interesting consult. MOHAN/KEYLA Voice ID: [id number] Report ID: [id number]
[2020-04-09] MEDS: GLUCERNA SHAKE 237 ML CAN PO SCH (20:43)
[2020-04-10] MEDS: D5W 1,000 ML with NA BICARB 8.4% 100 MEQ IV SCH ×6 (04:48→11:00)
[2020-04-10 06:21] LABS: Absolute Lymphocytes (CBC) 0.4 K/uL (0.7-4.9); Basophils % 0.3 % (0-1.3); Hematocrit 26.2 % (39.6-49.0); Lymphocytes % 20.4 % (15.3-44.8); MPV 9.6 fL (7.6-11.3); RBC Red Blood Cell Count 2.66 M/uL (4.33-5.43)
[2020-04-10] MEDS: LEVOTHYROXINE SOD 0.025 MG TAB PO SCH (06:30)
[2020-04-10 07:07] LABS: Albumin 2.1 g/dL (3.4-5.0); Ferritin 724.1 ng/mL (26-388); Folic Acid, (Folate) 7.3 ng/mL (3.1-17.5); Phosphorus 5.3 mg/dL (2.5-4.9); Potassium 4.5 mmol/L (3.5-5.1); Uric Acid 6.2 mg/dL (3.5-7.2)
[2020-04-10] MEDS ORDERED: CALCIUM GLUC 10% INJ 4.65 MEQ in NA CHLORIDE 0.9% 100 ML IV ONE (07:23)
[2020-04-10] MEDS: GLUCERNA SHAKE 237 ML CAN PO SCH ×2 (08:24→20:37)
[2020-04-10] MEDS: CALCITROL 0.25 MCG CAP PO SCH ×2 (08:25→13:23)
[2020-04-10] MEDS ORDERED: FENTANYL CITR 100 MCG/2 ML ONE (09:21)
[2020-04-10] MEDS ORDERED: NA CHLORIDE 0.9% 1,000 ML ONE (09:21)
[2020-04-10] MEDS ORDERED: MIDAZOLAM HCL 2 MG/2 ML INJ ONE (09:21)
[2020-04-10] MEDS ORDERED: dexAMETHasone 10 MG/ML VIAL ONE (09:22)
[2020-04-10] MEDS ORDERED: ONDANSETRON 4 MG/2 ML VIAL ONE (09:22)
[2020-04-10] MEDS ORDERED: ETOMIDATE 20 MG/10 ML VIAL IV ONE (09:23)
[2020-04-10] MEDS ORDERED: CEFAZOLIN/SWI 1gm 1 GM/10 ML SYR ONE (09:35)
[2020-04-10] MEDS ORDERED: NS 0.9% VIAL 40 ML ONE (09:39)
[2020-04-10] MEDS ORDERED: HEPARIN 5000 UNIT/ML 1 ML VIAL ONE (09:40)
[2020-04-10] MEDS ORDERED: BUPIVACA 0.25%/EPI 0.0005%/PF 30 ML VIAL ONE (09:40)
[2020-04-10] MEDS ORDERED: SODIUM CHLORIDE 0.9% 10ML INJ IV ONE (10:12)
--- NOTE | 2020-04-10 10:23 | P.OP ---
Equipment Installer: NONE,NONE Preoperative diagnosis: End Stage Renal Disease Postoperative diagnosis: End Stage Renal Disease Primary procedure: Placement of RIGHT internal jugular tunnelled hemodialysis catheter Secondary procedure: Ultrasound guidance, flouroscopic interpretation, microintroducer used Anesthesia: MAC + Local Estimated blood loss: <5 cc Specimen: none Findings: dark, non-pulsatile blood returned Complications: None Implants: Tunnelled 24 cm hemosplit catheter Transferred to: Recovery Room Condition: Good
--- NOTE | 2020-04-10 10:42 | RAD REPORT ---
EXAM DESCRIPTION: RAD - Fluoroscopy <1 Hour - 04/10/2020 10:36 am CLINICAL HISTORY: Device placement central venous catheter placement FINDINGS: A central venous catheter was placed into the right atrium. 5 fluoroscopic spot images are submitted. Fluoroscopy time 0.2 minutes The examination was performed by Dr. Justin
--- NOTE | 2020-04-10 10:52 | RAD REPORT ---
EXAM DESCRIPTION: [place] Single View04/10/2020 10:43 am CLINICAL HISTORY: Device placement/central venous catheter placement IMPRESSION: Central venous catheter has 1 limb in the superior vena cava, the other within the junct ion of the superior vena cava and right atrium No pneumothorax
--- NOTE | 2020-04-10 12:58 | PN ---
Date of Progress Note: 04/10/2020 Subjective: Patient was admitted with acute kidney injury on advanced chronic kidney disease. Patient was severely acidotic and uremic. The patient had a PermCath placement today, tolerated the procedure very well. Physical Examination: Vital Signs: When I saw the patient, blood pressure 145/48, pulse of 64, afebrile. The patient had good urine output of 1400. Chest: Clear to auscultation. Heart: S1, S2. Systolic murmur. Abdomen: Soft, nontender. Extremity: No edema. Neuro: Alert, just flapping tremor. Laboratory Data: WBC 2, H and H 9.1/26.2, platelets of 61. Sodium 139, potassium 4.5, bicarb 18, chloride 108, BUN 144, creatinine 7.2, uric acid 6.2, calcium 5.8, phosphor 5.3, iron saturation of 88, ferritin 724, albumin 2.1. PTH 325. PC ratio is 1.2. Urine anion gap is 3. Current Medication: The patient on include: 1. Tylenol. 2. Zofran. 3. Levothyroxine. 4. Sodium bicarb IV. Assessment And Plan: 1. Acute kidney injury on advanced chronic kidney disease, possible progression to end-stage renal disease, uremic. We are going to proceed with dialysis today. We will dialyze the patient today and tomorrow. Then hopefully we can switch him to Tuesday, Tuesday, Tuesday. 2. With the presence of renal tubular acidosis, supported with urine electrolyte and the progression of his disease, patient may need kidney biopsy after stabilizing the acidosis. 3. Acidosis secondary to renal failure/renal tubular acidosis with the presence of finding on the bone marrow to rule out any systemic multiple myeloma/light chain nephropathy. I am going to go ahead and start the patient on calcium carbonate and we will supplement the calcium today. We will follow up. 4. Secondary hyperparathyroidism. Start calcitriol and calcium carbonate. 5. Anemia, multifactorial. Renal failure, chronic kidney disease, myelodysplastic syndromes. Continue CECELIA. We will follow up with Oncology. 6. Hypothyroidism. Continue levothyroxine. time spent for face to face care , placing order and dicussing with staff, other commercial sales consultant and patient/ patient family 35 min TAYO/KEYLA Voice ID: [id number] Report ID: [id number] MTDD
[2020-04-10] MEDS: CALCIUM CARBONATE 500 MG TAB PO SCH ×2 (13:24→20:43)
--- NOTE | 2020-04-10 20:01 | OP ---
Date of Procedure: 04/10/2020 Surgeon: Aden Maradiaga MD, Preoperative Diagnosis: End-stage renal disease. Postoperative Diagnosis: End-stage renal disease. Procedure Performed: Placement of a right internal jugular tunnel hemodialysis catheter using ultras ound guidance, fluoroscopic interpretation, and microintroducer was used. Anesthesia: MAC plus local with 1% lidocaine without epinephrine. Estimated Blood Loss: Less than 5 cc. Specimen: None. Findings: Dark nonpulsatile blood return. Complications: None. Implants: A 24 cm HemoSplit tunneled dialysis catheter. Disposition: Transferred to recovery room in good condition. Procedure In Detail: After informed consent was obtained, the patient was brought to the operating r oom, prepped and draped in the usual sterile fashion. After adequate anesthesia was achieved, the pa tient was placed in steep Trendelenburg position, and using ultrasound guidance, I cannulated the rig ht internal jugular vein on first attempt under direct visualization of ultrasound guidance with the microintroducer needle. A microwire was then passed into the jugular vein. Verification with fluoro scopy was confirmed that the position of the wire was in good anatomic position at the SVC confluence . At this point, I then made a gabi incision overlying the insertion site and placed the introducer sheath over this and brought in the standard wire after removing the inner portion of the introducer sheath. I then verified position of the standard wire in the normal anatomic position and it did ent er the heart at this point and it was backed out to the confluence of the SVC. It was found to be in good anatomic position at this point. I then turned my attention to placement and tunneling of the catheter. I found a 24 cm HemoSplit catheter to be adequate and I sized appropriately. I anesthetiz ed the tract between the insertion site and the catheter exit point on the chest wall and tunneled th is over the clavicle on that right side without evidence of complication. I then sequentially dilate d up the tract using Seldinger technique over the standard wire and placed the introducer sheath into the jugular vein without evidence of complication. I then introduced the catheter, verified positio n on fluoroscopy at the SVC confluence, and removed the introducer sheath. At this point, the patien t was taken out of Trendelenburg and I pulled dark red nonpulsatile blood once again at both trocars and flushed it with saline and packed with heparinized saline at this point. Imaging confirmed this was in good anatomic position. I then secured the catheter to the chest with the 3-0 nylon suture an d a sterile dressing placed over top. The patient tolerated the procedure well without evidence of c omplication, transferred to PACU in good condition. All counts were correct at the end of the case. A stat chest x-ray will be performed in the recovery room. All counts were correct at the end of e case. MOHAN/KEYLA Voice ID: [id number] Report ID: [id number]
[2020-04-11 04:58] LABS: Albumin 2.2 g/dL (3.4-5.0); Phosphorus 5.2 mg/dL (2.5-4.9); Potassium 3.5 mmol/L (3.5-5.1)
[2020-04-11] MEDS: LEVOTHYROXINE SOD 0.025 MG TAB PO SCH (05:44)
[2020-04-11] MEDS: GLUCERNA SHAKE 237 ML CAN PO SCH (09:00)
[2020-04-11] MEDS: CALCIUM CARBONATE 500 MG TAB PO SCH ×3 (09:00→21:12)
--- NOTE | 2020-04-11 10:00 | P.HP ---
Certification for Inpatient Patient admitted to: Inpatient With expected LOS: >2 Midnights Patient will require the following post-hospital care: None Practitioner: I am a practitioner with admitting privileges, knowledge of patient current condition, hospital course, and medical plan of care. Services: Services provided to patient in accordance with Admission requirements found in Title 42 Section 412.3 of the Code of Federal Regulations Patient History Date of Service: 04/08/20 Reason for admission: ACUTE RENAL INSUFFICIENCY History of Present Illness: PATIENT IS AN 84-YEAR-OLD GENTLEMAN WHO CAME TO THE HOSPITAL WITH ACUTE RENAL INSUFFICIENCY. HIS RENAL FUNCTION WAS VERY POOR. IT HAD WORSENED QUITE SIGNIFICANTLY OVER THE LAST FEW MONTHS. HE WAS MAKING VERY LITTLE URINE SO HE WAS ADMITTED TO THE HOSPITAL FOR FURTHER EVALUATION. PATIENT HAS PANCYTOPENIA WELL. WILL GO AHEAD AND ADMIT HIM TO THE HOSPITAL AND HAD NEPHROLOGY CONSULTATION. PATIENT WILL BE ADMITTED TO THE HOSPITAL FOR FURTHER EVALUATION. Allergies No Known Allergies Allergy (Verified 04/08/20 20:33) Home Medications: Aspirin Chewable [Aspirin Chewable*] 81 mg PO DAILY 04/09/20 Atorvastatin Calcium [Lipitor] 40 mg PO DAILY 04/09/20 Calcitriol [Rocaltrol] 0.25 mcg PO DAILY 04/09/20 Calcium Carbonate 1 tab PO SEECOM 04/09/20 Calcium Carbonate 2 tab PO SEECOM 04/09/20 Famotidine [Pepcid*] 20 mg PO DAILY 04/09/20 Finasteride 5 mg PO DAILY 04/09/20 Fluconazole [Diflucan] 50 mg PO DAILY 04/09/20 Glimepiride 1 mg PO DAILY 04/09/20 Iron Fum & Ps Cmp/Vit C & B [Integra Capsule] 1 cap PO DAILY 04/09/20 Levothyroxine Sodium 1 tab PO DAILY 04/09/20 Lipase/Protease/Amylase [Creon Dr 36,000 Units Capsule] 3 cap PO TIDWM 04/09/20 Tamsulosin [Flomax*] 0.4 mg PO DAILY 04/09/20 Valacyclovir [Valtrex*] 500 mg PO DAILY 04/09/20 levoFLOXacin [Levofloxacin] 250 mg PO DAILY 04/09/20 predniSONE [Prednisone*] 5 mg PO DAILY 04/09/20 - Past Medical/Surgical History Has patient received pneumonia vaccine in the past: Yes Diabetic: Yes -: HTN -: NIDDM -: Inflammation of the Pancreas -: Hypothyroidism -: Kidney Insufficiency -: Gout -: CORONARY ARTERY BYPASS GRAFTING - Family History Mother Medical History: Cancer Notes: Stomach Cancer Father Notes: Heart Attack - Social History Smoking Status: Never smoker Alcohol use: No Place of Residence: Home Review of Systems 10-point ROS is otherwise unremarkable Physical Examination - Vital Signs Temperature: 96.9 F Blood Pressure: 179/75 Pulse: 57 Respirations: 16 Pulse Ox (%): 98 - Physical Exam General: Alert, In no apparent distress, Oriented x2, Confused HEENT: Atraumatic, PERRLA, Mucous membr. moist/pink, EOMI, Sclerae nonicteric Neck: Supple, 2+ carotid pulse no bruit, No LAD, Without JVD or thyroid abnormality Respiratory: Clear to auscultation bilaterally, Normal air movement Cardiovascular: Regular rate/rhythm, Normal S1 S2, No murmurs Gastrointestinal: Normal bowel sounds, Soft and benign, Non-distended, No tenderness Musculoskeletal: No clubbing, No swelling, No tenderness Integumentary: No rashes Neurological: Normal gait, Normal speech, Normal strength at 5/5 x4 extr, Normal tone, Sensation intact, Cranial nerves 3-12 intact, Normal affect Lymphatics: No axilla or inguinal lymphadenopathy Assessment & Plan - Problems (Diagnosis) (1) Acute renal insufficiency Current Visit: Yes Status: Acute (2) Multiple myeloma Current Visit: Yes Status: Acute (3) MDS (myelodysplastic syndrome) Current Visit: Yes Status: Acute (4) CAD (coronary artery disease) Onset Date: 05/09/18 Current Visit: No Status: Chronic Qualifiers: (5) Diabetes Onset Date: 05/09/18 Current Visit: No Status: Chronic (6) HTN (hypertension) Onset Date: 05/09/18 Current Visit: No Status: Chronic Qualifiers: - Plan PLAN: 1. CONTINUE WITH IV HYDRATION 2. HEMATOLOGY CONSULTATION 3. NEPHROLOGY CONSULTATION 4. MONITOR RENAL FUNCTION CLOSELY 5. PROTEIN ELECTROPHORESIS OF THE URINE 6. MONITOR CBC 7. GI AND DVT PROPHYLAXIS Discharge Plan: Home Plan to discharge in: Greater than 2 days - Advance Directives Does patient have a Living Will: No Does patient have a Durable POA for Healthcare: Yes - Code Status/Comfort Care Code Status Assessed: Yes Code Status: Full Code Critical Care: No Time Spent Managing PTS Care (In Minutes): 45
[2020-04-11] MEDS ORDERED: DESMOPRESSIN 4 MCG/ML AMP IV ONE (10:01)
--- NOTE | 2020-04-11 10:02 | P.PN ---
Subjective Date of Service: 04/09/20 NO NEW COMPLAINTS AT THIS TIME. PATIENT SCHEDULED FOR HEMODIALYSIS ACCESS CATHETER IN THE MORNING Review of Systems 10-point ROS is otherwise unremarkable Physical Examination - Vital Signs Temperature: 96.9 F Blood Pressure: 179/75 Pulse: 57 Respirations: 16 Pulse Ox (%): 98 - Physical Exam General: Alert, In no apparent distress, Oriented x3 Respiratory: Clear to auscultation bilaterally, Normal air movement Cardiovascular: Regular rate/rhythm, Normal S1 S2, No murmurs Gastrointestinal: Normal bowel sounds, Soft and benign, Non-distended, No tenderness Musculoskeletal: No clubbing, No swelling, No tenderness Neurological: Sensation intact, Cranial nerves 3-12 intact - Studies Medications List Reviewed: Yes Assessment & Plan - Problems (Diagnosis) (1) Acute renal insufficiency Current Visit: Yes Status: Acute (2) Multiple myeloma Current Visit: Yes Status: Acute (3) MDS (myelodysplastic syndrome) Current Visit: Yes Status: Acute (4) CAD (coronary artery disease) Onset Date: 05/09/18 Current Visit: No Status: Chronic Qualifiers: (5) Diabetes Onset Date: 05/09/18 Current Visit: No Status: Chronic (6) HTN (hypertension) Onset Date: 05/09/18 Current Visit: No Status: Chronic Qualifiers: - Plan PLAN: CONTINUE WITH PLAN OF CARE MENTIONED BELOW. AT THIS TIME. WE WILL ALSO PROCEED WITH HEMODIALYSIS. HEMODIALYSIS ACCESS CATHETER PENDING. NEPHROLOGY ALSO CONSIDERING RENAL BIOPSY. 1. CONTINUE WITH IV HYDRATION 2. HEMATOLOGY CONSULTATION 3. NEPHROLOGY CONSULTATION 4. MONITOR RENAL FUNCTION CLOSELY 5. PROTEIN ELECTROPHORESIS OF THE URINE 6. MONITOR CBC 7. GI AND DVT PROPHYLAXIS Discharge Plan: Home Plan to discharge in: Greater than 2 days - Advance Directives Does patient have a Living Will: No Does patient have a Durable POA for Healthcare: Yes - Code Status/Comfort Care Code Status: Full Code Critical Care: No Time Spent Managing PTS Care (In Minutes): 30
--- NOTE | 2020-04-11 10:03 | P.PN ---
Subjective Date of Service: 04/10/20 PATIENT TOLERATING HEMODIALYSIS ACCESS CATHETER WITHOUT ANY COMPLAINTS. PATIENT IS CLINICALLY DOING WELL WITH NO ABNORMALITIES. RENAL FUNCTION STABILIZING. POSSIBLE RENAL BIOPSY IN THE MORNING Review of Systems 10-point ROS is otherwise unremarkable Physical Examination - Vital Signs Temperature: 96.9 F Blood Pressure: 179/75 Pulse: 57 Respirations: 16 Pulse Ox (%): 98 - Physical Exam General: Alert, In no apparent distress, Oriented x3 Respiratory: Clear to auscultation bilaterally, Normal air movement Cardiovascular: Regular rate/rhythm, Normal S1 S2, No murmurs Gastrointestinal: Normal bowel sounds, Soft and benign, Non-distended, No tenderness Musculoskeletal: No clubbing, No swelling, No tenderness - Studies Medications List Reviewed: Yes Assessment & Plan - Problems (Diagnosis) (1) Acute renal insufficiency Current Visit: Yes Status: Acute (2) Multiple myeloma Current Visit: Yes Status: Acute (3) MDS (myelodysplastic syndrome) Current Visit: Yes Status: Acute (4) CAD (coronary artery disease) Onset Date: 05/09/18 Current Visit: No Status: Chronic Qualifiers: (5) Diabetes Onset Date: 05/09/18 Current Visit: No Status: Chronic (6) HTN (hypertension) Onset Date: 05/09/18 Current Visit: No Status: Chronic Qualifiers: - Plan PLAN: STATUS POST HEMODIALYSIS ACCESS CATHETER. SCHEDULE FOR HEMODIALYSIS IN THE [facility]. MAY NEED RENAL BIOPSY PENDING NEPHROLOGY RECOMMENDATIONS. 1. CONTINUE WITH IV HYDRATION 2. HEMATOLOGY CONSULTATION 3. NEPHROLOGY CONSULTATION 4. MONITOR RENAL FUNCTION CLOSELY 5. PROTEIN ELECTROPHORESIS OF THE URINE 6. MONITOR CBC 7. GI AND DVT PROPHYLAXIS Discharge Plan: Home Plan to discharge in: 48 Hours - Advance Directives Does patient have a Living Will: No Does patient have a Durable POA for Healthcare: Yes - Code Status/Comfort Care Code Status: Full Code Critical Care: No Time Spent Managing PTS Care (In Minutes): 30
[2020-04-11] MEDS ORDERED: DESMOPRESSIN IV ONE (10:30)
[2020-04-11] MEDS ORDERED: NA CHLORIDE 0.9% IV ONE (10:30)
[2020-04-11] MEDS ORDERED: FLUMAZENIL 0.1 MG/ML (5 mL VIAL) IV ONE (10:48)
[2020-04-11] MEDS ORDERED: MIDAZOLAM HCL 2 MG/2 ML INJ ONE ×2 (10:48→12:24)
[2020-04-11] MEDS ORDERED: NA CHLORIDE 0.9% 500 ML ONE (10:49)
[2020-04-11] MEDS ORDERED: FENTANYL CITR 100 MCG/2 ML ONE ×2 (10:49→12:24)
--- NOTE | 2020-04-11 10:55 | P.PN ---
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 as per primary Total time spent 50 min Physical Examination - Vital Signs Temperature: 96.9 F Blood Pressure: 179/75 Pulse: 57 Respirations: 16 Pulse Ox (%): 98 - Studies Medications List Reviewed: Yes
[2020-04-11] MEDS ORDERED: EPOETIN 4,000 UNIT/ML VIAL IV SCH (11:00)
[2020-04-11] MEDS ORDERED: HYDRALAZINE HCL 20 MG/ML VIAL ONE (11:17)
[2020-04-11] MEDS ORDERED: ONDANSETRON 4 MG/2 ML VIAL ONE (11:27)
[2020-04-11] MEDS: AMLODIPINE 5 MG TAB PO SCH (11:30)
--- NOTE | 2020-04-11 13:39 | RAD REPORT ---
EXAM DESCRIPTION: CT - Renal Biopsy CT - 04/11/2020 12:52 pm CLINICAL HISTORY: RENAL BX COMPARISON: [facility] Protocol dated 04/08/2020 TECHNIQUE: Patient presents from the floor for image guided renal biopsy. Prior imaging studies were reviewed. Patient has no contraindicated allergy or medication history. Heparin was withheld for inadequate ana maria unt of time. The CT-guided biopsy procedure, risks and alternatives were discussed with the patient in detail. Aft er answering all questions, both oral and written consent were obtained. IV access and physiologic mo nitors were in place. Initial imaging identifies a normal sized right kidney with a left kidney that was atrophic with very thin cortex. Left kidney likely has little or no function. Preliminary imaging identified a narrow w indow to access the lower pole of the right kidney. Patient had a large amount of stool wrapping arou nd the lateral and posterior aspect of the lower pole right kidney. Upper pole right kidney access wa s not advisable. Patient was in a prone position on the CT table. The skin of the posterior back was prepped and drape d in the usual sterile fashion. Patient was pre-medicated with Versed said 2.0 milligrams IV and fent anyl 100 micrograms IV. Skin and deeper tissues were anesthetized with 1% lidocaine. There was signif icant patient motion during this procedure even after optimal conscious sedation. Patient movement ne cessitated re- selection of the access site. Multiple attempts were made to gain access to the lower pole of the right kidney. Due to the very robyn row window between the spine and bowel and repeated changes in patient positioning, the lower pole of the right kidney was never able to be accessed in a manner that would allow all safe biopsy of the k idney and avoidance of the stool filled colon. Therefore, after the multiple unsuccessful attempts, t he procedure was terminated. Patient's vital signs were stable throughout the procedure. All needles were removed. Sterile bandage placed to the puncture site. Patient was transferred back to the floor for continued care. IMPRESSION: Unsuccessful image guided biopsy of the right kidney. Due to the very narrow window between the spine and stool filled colon, exacerbated by a repeated pat ient motion, the lower pole of the right kidney could not be safely accessed for biopsy.
[2020-04-11] MEDS: NEPRO SHAKE 237 ML CAN PO SCH (21:00)
--- NOTE | 2020-04-12 00:02 | P.PN ---
Subjective Date of Service: 04/11/20 renal biopsy not able to be completed by Radiology. Apparently unable the localize the tissue. Patient will need further workup with protein electrophoresis and Bence-Plasencia protein. Patient continue with hemodialysis per Nephrology. Review of Systems 10-point ROS is otherwise unremarkable Physical Examination - Vital Signs Temperature: 97.4 F Blood Pressure: 125/68 Pulse: 76 Respirations: 18 Pulse Ox (%): 99 - Physical Exam General: Alert, In no apparent distress, Oriented x3 Respiratory: Clear to auscultation bilaterally, Normal air movement Cardiovascular: Regular rate/rhythm, Normal S1 S2 Gastrointestinal: Normal bowel sounds, Soft and benign, Non-distended, No tenderness Musculoskeletal: No clubbing, No swelling, No tenderness Integumentary: No rashes Neurological: Abnormal strength - Studies Medications List Reviewed: Yes Assessment & Plan - Problems (Diagnosis) (1) Acute renal insufficiency Current Visit: Yes Status: Acute (2) Multiple myeloma Current Visit: Yes Status: Acute (3) MDS (myelodysplastic syndrome) Current Visit: Yes Status: Acute (4) CAD (coronary artery disease) Onset Date: 05/09/18 Current Visit: No Status: Chronic Qualifiers: (5) Diabetes Onset Date: 05/09/18 Current Visit: No Status: Chronic (6) HTN (hypertension) Onset Date: 05/09/18 Current Visit: No Status: Chronic Qualifiers: - Plan PLAN: Unable to complete renal biopsy; will have to send for protein electrophoresis and binge in her teens. 1. CONTINUE WITH IV HYDRATION 2. HEMATOLOGY CONSULTATION APPRECIATED 3. NEPHROLOGY CONSULTATION APPRECIATED 4. MONITOR RENAL FUNCTION CLOSELY 5. PROTEIN ELECTROPHORESIS OF THE URINE 6. MONITOR CBC 7. GI AND DVT PROPHYLAXIS Discharge Plan: Home Plan to discharge in: Greater than 2 days - Advance Directives Does patient have a Living Will: No Does patient have a Durable POA for Healthcare: Yes - Code Status/Comfort Care Code Status: Full Code Critical Care: No Time Spent Managing PTS Care (In Minutes): 30
[2020-04-12] MEDS: LEVOTHYROXINE SOD 0.025 MG TAB PO SCH (05:33)
[2020-04-12 05:34] LABS: Absolute Lymphocytes (CBC) 0.5 K/uL (0.7-4.9); Basophils % 0.5 % (0-1.3); Hematocrit 23.6 % (39.6-49.0); Lymphocytes % 30.2 % (15.3-44.8); MPV 9.9 fL (7.6-11.3); RBC Red Blood Cell Count 2.37 M/uL (4.33-5.43)
[2020-04-12 05:45] LABS: Albumin 2.1 g/dL (3.4-5.0); Phosphorus 2.6 mg/dL (2.5-4.9); Potassium 3.6 mmol/L (3.5-5.1)
[2020-04-12] MEDS: AMLODIPINE 5 MG TAB PO SCH (09:53)
[2020-04-12] MEDS: CALCIUM CARBONATE 500 MG TAB PO SCH ×3 (09:53→20:11)
[2020-04-12] MEDS: CALCITROL 0.25 MCG CAP PO SCH (09:53)
[2020-04-12] MEDS: NEPRO SHAKE 237 ML CAN PO SCH ×2 (09:54→20:11)
[2020-04-12 10:40] LABS: Anisocytosis 2+; Blood Morphology Comment NOTED (NOT SEEN); Hypochromasia 1+; Macrocytosis 1+; Platelet Estimate DECR; Polychromasia SLIGHT
[2020-04-12 10:41] LABS: Ovalocytes SLIGHT; Poikilocytosis 1+
[2020-04-12 10:42] LABS: Platelets, Giant PRESENT
[2020-04-12 12:44] LABS: Hematocrit 28.1 % (39.6-49.0)
--- NOTE | 2020-04-12 14:40 | P.PN ---
Subjective Date of Service: 04/12/20 Chief Complaint: ACUTE RENAL INSUFFICIENCY Subjective: Doing well Physical Examination - Vital Signs Temperature: 98.6 F Blood Pressure: 147/55 Pulse: 55 Respirations: 17 Pulse Ox (%): 100 - Physical Exam General: Alert HEENT: Atraumatic Neck: Supple Respiratory: Clear to auscultation bilaterally, Normal air movement Cardiovascular: Normal pulses, Regular rate/rhythm Gastrointestinal: Normal bowel sounds Neurological: Normal speech, Normal strength at 5/5 x4 extr, Normal tone, Normal affect - Studies Medications List Reviewed: Yes Assessment & Plan Discharge Plan: Home Plan to discharge in: Greater than 2 days Physician Review Additional Text: Impression: 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 Renal function worsening. Patient has continued with dialysis. This may be progression of his chronic illnesses. It appears Kidney biopsy could not be done. Will need to discuss with other specialists including Nephrology. Will discuss further with nephrology about plan of care. Continue to monitor electro lytes. Will review and adjust home medication. Pancytopenia suspect MDS: Will need to discuss further with nephrology and hematology CAD: Continue with home medication DM Type 2: Will review home medication. Will provide sliding scale. Patient previously on prednisone. Will need to verify this if so this may need to be restarted. HTN: Will provide medication. Hyperlipidemia: Restart medication Time Spent Managing Pts Care (In Minutes): 55
[2020-04-12] MEDS: AMYLASE PO SCH (16:13)
[2020-04-12] MEDS: LIPASE PO SCH (16:13)
[2020-04-12] MEDS: PROTEASE PO SCH (16:13)
[2020-04-12 21:55] LABS: HBsAG Nonreactive (Nonreactive)
--- NOTE | 2020-04-12 23:45 | PN ---
Date of Progress Note: 04/12/2020 Chief Complaint: Acute kidney injury. Subjective: The patient is an 84-year-old man with history of hypertension, hyperlipidemia, chronic kidney disease stage 3, baseline creatinine level 2.2. The patient has history of diabetic kidney di sease, diabetic nephropathy, history of coronary artery disease. The patient was admitted for abnorm al lab work. He was started on dialysis for severe hyperazotemia. Plan is to proceed with renal bio psy and follow up with Urology still in progress. The received dialysis yesterday. Review of Systems: Denies chest pain or palpitation. Physical Examination: Lungs: Diminished breath sounds at bases. Heart: S1, S2. Abdomen: Soft, benign. Extremities: No edema. No ulcers. Impression And Plan: 1.Acute on chronic kidney injury. The patient was started on dialysis. Monitor electrolytes closel y. Plan dialysis on Tuesday. 2.Metabolic acidosis due to acute kidney injury. Continue dialysis and if needed, the patient take sodium bicarbonate tablet. 3.Hypertension, controlled. 4.Pancytopenia due to myelodysplastic syndrome. Hematology on board. OSKAR/KEYLA Voice ID: [id number] Report ID: [id number]
[2020-04-13] MEDS: LEVOTHYROXINE SOD 0.025 MG TAB PO SCH (05:35)
[2020-04-13 06:24] LABS: Absolute Lymphocytes (CBC) 0.6 K/uL (0.7-4.9); Basophils % 0.2 % (0-1.3); Hematocrit 24.5 % (39.6-49.0); Lymphocytes % 27.2 % (15.3-44.8); MPV 10.5 fL (7.6-11.3); RBC Red Blood Cell Count 2.47 M/uL (4.33-5.43)
[2020-04-13 06:28] LABS: Phosphorus 2.6 mg/dL (2.5-4.9); Potassium 3.6 mmol/L (3.5-5.1)
[2020-04-13] MEDS: LIPASE PO SCH ×3 (08:00→16:00)
[2020-04-13] MEDS: PROTEASE PO SCH ×3 (08:00→16:00)
[2020-04-13] MEDS: AMYLASE PO SCH ×3 (08:00→16:00)
[2020-04-13] MEDS: CALCIUM CARBONATE 500 MG TAB PO SCH ×3 (08:28→20:05)
[2020-04-13] MEDS: ATORVASTATIN 40 MG TAB PO SCH (08:28)
[2020-04-13] MEDS: FAMOTIDINE 20 MG TAB PO SCH (08:29)
[2020-04-13] MEDS: VALACYCLOVIR 500 MG TAB PO SCH (08:29)
[2020-04-13] MEDS: AMLODIPINE 5 MG TAB PO SCH (08:29)
[2020-04-13] MEDS: predniSONE 5 MG TAB PO SCH (08:30)
[2020-04-13] MEDS: IRON FUM PO SCH (08:32)
[2020-04-13] MEDS: [UNRECOGNIZED DRUG - OTHER] PO SCH (08:32)
[2020-04-13] MEDS: PS CMP PO SCH (08:32)
[2020-04-13] MEDS: VIT C PO SCH (08:32)
[2020-04-13] MEDS: HEPARIN 5000 UNIT/ML 1 ML VIAL SQ SCH ×2 (08:32→20:03)
[2020-04-13] MEDS: NEPRO SHAKE 237 ML CAN PO SCH ×2 (08:33→20:04)
[2020-04-13] MEDS ORDERED: ASPIRIN 81 MG CHEWABLE TABLET PO SCH (09:00)
[2020-04-13] MEDS ORDERED: predniSONE 5 MG TAB PO SCH (09:00)
--- NOTE | 2020-04-13 09:54 | P.PN ---
Subjective Date of Service: 04/13/20 Chief Complaint: ACUTE RENAL INSUFFICIENCY Subjective: Improving Physical Examination - Vital Signs Temperature: 97.8 F Blood Pressure: 137/65 Pulse: 62 Respirations: 16 Pulse Ox (%): 98 - Physical Exam General: Alert, Cooperative HEENT: Atraumatic Neck: Supple Respiratory: Clear to auscultation bilaterally Cardiovascular: Normal pulses, Regular rate/rhythm Gastrointestinal: Normal bowel sounds Neurological: Normal speech, Normal strength at 5/5 x4 extr, Normal tone, Normal affect - Studies Medications List Reviewed: Yes Assessment & Plan Discharge Plan: Home Plan to discharge in: 48 Hours Physician Review Additional Text: Impression: 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 Patient will likely require dialysis again tomorrow. It appears kidney biopsy cannot be done on previous day. Will need to did discuss further with nephrology and hematology for plan of care. Patient is seen by Hematology as an outpatient. Patient will likely require outpatient dialysis. This may need to be coordinated with social work and outpatient dialysis center. Pancytopenia suspect MDS: This appears improved. Continue monitor closely. Will need to discuss further with nephrology and hematology CAD: Continue with home medication DM Type 2: Continue sliding scale. HTN: Continue medication. Hyperlipidemia: Continue medication History pancreatic mass: Prior consultation reports indicate serology was negative. Continue with steroid medication. Will need to discuss further with Oncology. Time Spent Managing Pts Care (In Minutes): 55
[2020-04-13 20:36] LABS: Hepatitis C Virus RNA (PCR)log <1.18 log IU/mL
--- NOTE | 2020-04-13 22:45 | PN ---
Date of Progress Note: 04/13/2020 Chief Complaint: Acute kidney injury, accelerating chronic kidney disease. Subjective: The patient has stage 3 chronic kidney disease, baseline creatinine 2.2. The patient pratt s history of diabetic kidney disease, diabetic nephropathy, history of coronary artery disease, hyper tension. The patient was started on dialysis for severe hyperazotemia. The patient will require rani al biopsy for further evaluation to assess etiology of kidney exacerbation. Review of Systems: Denies chest pain or palpitation. Physical Examination: Lungs: Diminished breath sounds at bases. Heart: S1, S2. Abdomen: Soft, benign. Extremities: No ulcers. Impression And Plan: 1.Acute on chronic kidney injury. The patient was started on dialysis. Monitor electrolytes and re sume dialysis 3 times per week. 2.Metabolic acidosis due to acute kidney injury. Electrolytes are stabilizing. If needed, the fatoumata ent will take sodium bicarbonate tablets according to blood work results. 3.Hypertension. Blood pressure controlled. 4.Pancytopenia. Hematology on board. OSKAR/KEYLA Voice ID: [id number] Report ID: [id number]
[2020-04-14 04:12] VITALS: O2SAT 98
[2020-04-14 04:28] LABS: Absolute Lymphocytes (CBC) 0.6 K/uL (0.7-4.9); Basophils % 0.2 % (0-1.3); Hematocrit 23.1 % (39.6-49.0); MPV 11.1 fL (7.6-11.3); RBC Red Blood Cell Count 2.31 M/uL (4.33-5.43)
[2020-04-14] MEDS: LEVOTHYROXINE SOD 0.025 MG TAB PO SCH (05:22)
[2020-04-14 05:35] LABS: Albumin 1.9 g/dL (3.4-5.0); Phosphorus 3.2 mg/dL (2.5-4.9); Potassium 3.2 mmol/L (3.5-5.1)
[2020-04-14] MEDS: AMYLASE PO SCH ×3 (08:00→16:32)
[2020-04-14] MEDS: PROTEASE PO SCH ×3 (08:00→16:32)
[2020-04-14] MEDS: LIPASE PO SCH ×3 (08:00→16:32)
[2020-04-14] MEDS: ATORVASTATIN 40 MG TAB PO SCH (08:38)
[2020-04-14] MEDS: CALCITROL 0.25 MCG CAP PO SCH (08:38)
[2020-04-14] MEDS: FAMOTIDINE 20 MG TAB PO SCH (08:38)
[2020-04-14] MEDS: VALACYCLOVIR 500 MG TAB PO SCH (08:39)
[2020-04-14] MEDS: predniSONE 5 MG TAB PO SCH (08:39)
[2020-04-14] MEDS: CALCIUM CARBONATE 500 MG TAB PO SCH ×3 (08:39→20:59)
[2020-04-14] MEDS: NEPRO SHAKE 237 ML CAN PO SCH ×2 (08:41→21:01)
[2020-04-14] MEDS: [UNRECOGNIZED DRUG - OTHER] PO SCH (08:42)
[2020-04-14] MEDS: VIT C PO SCH (08:42)
[2020-04-14] MEDS: PS CMP PO SCH (08:42)
[2020-04-14] MEDS: HEPARIN 5000 UNIT/ML 1 ML VIAL SQ SCH ×2 (08:42→21:01)
[2020-04-14] MEDS: AMLODIPINE 5 MG TAB PO SCH (08:42)
[2020-04-14] MEDS: IRON FUM PO SCH (08:42)
--- NOTE | 2020-04-14 11:24 | P.PN ---
Subjective Date of Service: 04/14/20 Primary Care Provider: Nephrology-Dr. Garnett; Oncology-Dr. Varela Chief Complaint: ACUTE RENAL INSUFFICIENCY Subjective: Improving Physical Examination - Vital Signs Temperature: 97.2 F Blood Pressure: 137/67 Pulse: 73 Respirations: 18 Pulse Ox (%): 98 - Physical Exam General: Alert, Cooperative HEENT: Atraumatic Neck: Supple Respiratory: Clear to auscultation bilaterally, Normal air movement Cardiovascular: Normal pulses, Regular rate/rhythm Gastrointestinal: Normal bowel sounds, Soft and benign, Non-distended Neurological: Normal speech, Normal strength at 5/5 x4 extr, Normal tone, Normal affect - Studies Medications List Reviewed: Yes Assessment & Plan Discharge Plan: Home Plan to discharge in: 48 Hours Physician Review Additional Text: Impression: 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 Will arrange for outpatient dialysis at this time. Renal biopsy could not be performed after multiple attempts. Recent bone marrow biopsy showed MDS with possible multiple myeloma. This was the reason why renal biopsy was suggested. Nephrology will consider outpatient renal biopsy to evaluate this further. If patient with multiple myeloma then this may be treatable. If no multiple myeloma then patient likely has end-stage MDS. If this is the case scenario then nephrology would recommend hospice at that time as hemodialysis would be too difficult that his age. Will discuss further with nephrology. Continue physical therapy. Patient will need home health and physical therapy at discharge. Anticipate discharge once outpatient dialysis can be arranged. Pancytopenia suspect MDS: Case discussed with nephrology and hematology. As stated above patient may require further evaluation of kidneys to evaluate for multiple myeloma. If multiple myeloma is diagnosis this may be treatable. If no multiple myeloma then MDS likely end stage. Will discuss further with Hematology. CAD: Continue with home medication DM Type 2: Continue sliding scale. HTN: Continue medication. Hyperlipidemia: Continue medication History pancreatic mass: Prior consultation reports indicate serology was negative. Continue with steroid medication. Will need to discuss further with Oncology. Time Spent Managing Pts Care (In Minutes): 55
--- NOTE | 2020-04-15 00:52 | PN ---
Date of Progress Note: 04/14/2020 Chief Complaint: Acute kidney injury on accelerated chronic kidney disease. Subjective: The patient has stage 3 chronic kidney disease, baseline creatinine 2.2. The patient pratt s history of diabetic kidney disease, diabetic nephropathy, coronary artery disease, hypertension. T he patient was started on dialysis during this admission to treat severe hyperazotemia. The patient will require kidney biopsy for further workup to evaluate for possible etiology of kidney failure. Review of Systems: Denies chest pain or palpitation. Physical Examination: Lungs: Diminished breath sounds at bases. Heart: S1, S2. Abdomen: Soft, benign. Extremities: No edema. Impression And Plan: 1.Acute kidney injury. Dialysis was done today to obtain metabolic clearance and ultrafiltration. Procedure was well tolerated. 2.Metabolic acidosis due to acute kidney injury. Electrolytes are stabilizing. Continue dialysis a nd re-evaluate sodium bicarbonate. 3.Hypertension. Blood pressure controlled. 4.Pancytopenia. Hematology is following the patient. OSKAR/KEYLA Voice ID: [id number] Report ID: [id number]
[2020-04-15 04:45] LABS: Absolute Lymphocytes (CBC) 0.5 K/uL (0.7-4.9); Basophils % 0.5 % (0-1.3); Hematocrit 23.7 % (39.6-49.0); MPV 10.5 fL (7.6-11.3); RBC Red Blood Cell Count 2.37 M/uL (4.33-5.43)
[2020-04-15 04:49] LABS: Lymphocytes % 25.3 % (15.3-44.8)
[2020-04-15 04:55] LABS: Magnesium 1.9 mg/dL (1.8-2.4); Potassium 3.4 mmol/L (3.5-5.1)
[2020-04-15] MEDS: LEVOTHYROXINE SOD 0.025 MG TAB PO SCH (05:33)
[2020-04-15] MEDS: AMYLASE PO SCH ×3 (08:00→15:40)
[2020-04-15] MEDS: PROTEASE PO SCH ×3 (08:00→15:40)
[2020-04-15] MEDS: LIPASE PO SCH ×3 (08:00→15:40)
[2020-04-15] MEDS: [UNRECOGNIZED DRUG - OTHER] PO SCH (09:00)
[2020-04-15] MEDS: NEPRO SHAKE 237 ML CAN PO SCH ×2 (09:00→21:00)
[2020-04-15] MEDS: PS CMP PO SCH (09:00)
[2020-04-15] MEDS: IRON FUM PO SCH (09:00)
[2020-04-15] MEDS: VIT C PO SCH (09:00)
[2020-04-15] MEDS: HEPARIN 5000 UNIT/ML 1 ML VIAL SQ SCH ×2 (09:00→21:00)
[2020-04-15] MEDS: predniSONE 5 MG TAB PO SCH (09:14)
[2020-04-15] MEDS: FAMOTIDINE 20 MG TAB PO SCH (09:14)
[2020-04-15] MEDS: ATORVASTATIN 40 MG TAB PO SCH (09:14)
[2020-04-15] MEDS: VALACYCLOVIR 500 MG TAB PO SCH (09:14)
[2020-04-15] MEDS: CALCIUM CARBONATE 500 MG TAB PO SCH ×3 (09:15→21:06)
[2020-04-15] MEDS: AMLODIPINE 5 MG TAB PO SCH (09:15)
[2020-04-15] MEDS ORDERED: EPOETIN 4,000 UNIT/ML VIAL IV SCH (11:17)
--- NOTE | 2020-04-15 12:14 | P.PN ---
Subjective Date of Service: 04/15/20 Primary Care Provider: Nephrology-Dr. Garnett; Oncology-Dr. Varela Chief Complaint: ACUTE RENAL INSUFFICIENCY Subjective: Improving, Doing well Physical Examination - Vital Signs Temperature: 96.7 F Blood Pressure: 177/77 Pulse: 60 Respirations: 16 Pulse Ox (%): 100 - Physical Exam General: Alert, In no apparent distress, Oriented x3, Cooperative HEENT: Atraumatic Neck: Supple Respiratory: Clear to auscultation bilaterally, Normal air movement Cardiovascular: Normal pulses, Regular rate/rhythm Gastrointestinal: Normal bowel sounds, Soft and benign, Non-distended, No masses, No rebound, No guarding Neurological: Normal speech, Normal strength at 5/5 x4 extr, Normal tone, Normal affect - Studies Medications List Reviewed: Yes Assessment & Plan Discharge Plan: Home Plan to discharge in: 24 Hours Physician Review Additional Text: Impression: Acute on chronic renal disease stage 5 with worsening chronic renal disease with uremia and severe acidosis 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 Arranging for outpatient dialysis. Hopefully this will be confirmed within the next 24 hr. Spoke at length to nephrology and oncology. Oncology concerned for recent pancreatic biopsy. Recent biopsy showed possible abscess. No indication of abscess on recent CT scan. No evidence of sepsis during the course of his stay. Case discussed with GI. GI recommends MRI of the pancreatic region to rule out infectious cause or abscess. This is likely inflammation. Nephrology agrees with current plan of care. Renal biopsy could not be performed after multiple attempts. Recent bone marrow biopsy showed MDS with possible multiple myeloma. This was the reason why renal biopsy was suggested. Nephrology will consider outpatient renal biopsy to evaluate this further. If patient with multiple myeloma then this may be treatable. If no multiple myeloma then patient likely has end-stage MDS. If this is the case scenario then nephrology would recommend hospice at that time as hemodialysis would be too difficult that his age. Continue with above plan of care. Anticipate discharge within the next 24 hr. Pancytopenia suspect MDS: Case discussed with nephrology and hematology. As stated above patient may require further evaluation of kidneys to evaluate for multiple myeloma. If multiple myeloma is diagnosis this may be treatable. If no multiple myeloma then MDS likely end stage. Will discuss further with Hematology. CAD: Continue with home medication DM Type 2: Continue sliding scale. HTN: Continue medication. Hyperlipidemia: Continue medication History pancreatic mass: As mentioned above will obtain MRI of pancreas to further evaluate and rule out abscess. Time Spent Managing Pts Care (In Minutes): 55
--- NOTE | 2020-04-15 13:51 | PN ---
Date of Progress Note: 04/15/2020 Subjective: The patient was admitted with acute kidney injury on chronic kidney disease, severe acidosis. Patient was started on dialysis. We failed on the kidney biopsy on Tuesday. The patient is tolerating the dialysis. Physical Examination: Vital Signs: Blood pressure 141/62, pulse of 66, afebrile. The patient is oliguric. Chest: Clear to auscultation with the right IJ PermCath. Heart: S1, S2. Systolic murmur. Abdomen: Soft, nontender. No organomegaly. No guarding or rebound. Bowel sound appreciated. Extremities: No edema. Neurologic: Alert and oriented x3. No focal. Laboratory Data: WBC 2, H and H 7.7/23.7, platelets of 65. Sodium 143, potassium of 3.4, bicarb 24, BUN 36, creatinine 3.8, GFR of 15. This is after dialysis yesterday. Uric acid 7.7, magnesium 1.9, phosphorus 3.4. Calcium 7.7, albumin 1.9. Corrected calcium is 9.4. Current Medications: The patient on include, 1. Valtrex. 2. Epogen 4000 every dialysis. 3. Heparin. 4. Calcium carbonate. 5. Amlodipine 5 mg. 6. Atorvastatin. 7. Pepcid. 8. Levothyroxine. 9. Calcitriol. Assessment And Plan: 1. Acute kidney injury on advanced chronic kidney disease progression to end- stage renal disease. We will continue dialysis Tuesday, Tuesday, Tuesday. We will arrange for dialysis tomorrow. 2. Hypertension, controlled, optimal. Continue current treatment. 3. Acidosis, resolved. 4. Pancytopenia with anemia. Increase Epogen. 5. Secondary hyperparathyroidism. Calcium has been improved. Continue calcitriol. 6. Myelodysplastic Syndrome/multiple myeloma as by Oncology. 7. Pancreatic mass status post biopsy, questionable of inflammation cells on the biopsy. We will discuss with GI. Patient needs CT with contrast to rule out any abscess. We will do CT with contrast before dialysis, then we will dialyze the patient. Otherwise, patient has no leukopenia, no leukocytosis or fever. No sign of infection. We will monitor the patient. time spent for face to face care , placing order and dicussing with staff, other [facility]co consultant and patient/ patient family 35 min TAYO/KEYLA Voice ID: [id number] Report ID: [id number] ESTHER
[2020-04-16 07:10] LABS: Magnesium 1.8 mg/dL (1.8-2.4); Potassium 4.2 mmol/L (3.5-5.1)
[2020-04-16] MEDS: LEVOTHYROXINE SOD 0.025 MG TAB PO SCH (07:26)
--- NOTE | 2020-04-16 07:31 | RAD REPORT ---
EXAM DESCRIPTION: CT - Abdomen Pelvis W Contrast - 04/16/2020 6:16 am CLINICAL HISTORY: evaluate pancreatic mass, rule out abscess COMPARISON: RENAL BIOPSY dated 04/11/2020; [facility] Protocol dated 04/08/2020 TECHNIQUE: Biphasic, helical CT imaging of the abdomen and pelvis was performed following 100 ml non -ionic IV contrast. No oral contrast administered. All CT scans are performed using dose optimization technique as appropriate and may include automated exposure control or mA/KV adjustment according to patient size. FINDINGS: Trace left pleural effusion. Left base scarring changes also present. No pericardial effus ion. Liver parenchyma enhances normally with no focal lesion. No focal splenic abnormality. Gallbladder is distended with the wall slightly thickened and edematous. No intrahepatic or extrahepatic biliary tr ee dilatation identifiable. Marked dilatation of the pancreatic duct is again noted. There is now numerous air collections throug hout the dilated pancreatic duct. Additional air densities at the pancreatic head body junction are p resent believed to be extraluminal. No drainable fluid collection is seen. Head of the pancreas is ed ematous with poor demarcation of tissue planes between the pancreatic head and the duodenal C-loop. N o pneumobilia present. It is unknown if the patient underwent ERCP or other procedure that may have i ntroduced air into the pancreatic duct system. No abnormal peripancreatic lymphadenopathy. Bilateral renal function is present. Small atrophic left kidney does have some function present. No h ydronephrosis of either kidney. The right kidney appears slightly edematous. Renal function is asymme tric with the right kidney delayed slightly relative to the left. There is no etiology seen for the a symmetry. No obstructing calculus. No pyelonephritis or focal abnormality of the renal parenchyma. Pe rinephric stranding is present. Urinary bladder wall is slightly thickened. Contracted state limits a ccurate assessment of the wall. Air within the lumen is probably from catheterization but needs corre lation to exclude infectious etiology. No adrenal abnormalities. No gastric dilatation or wall thickening. No dilated small bowel loops. Large stool volume distends t he colon from cecum to rectum. No focal colon mass. No free air elsewhere in the peritoneal or retroperitoneal spaces. No pneumatosis or free fluid. No hernia, mass or bulky lymphadenopathy. No suspicious bony findings. Dense aortoiliac atherosclerotic calcifications are present. Minimal aneurysmal dilatation of the aor ta just above the bifurcation. This measures 2.3 cm AP x 2.8 cm TR. 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 There are displaced calcifications at the aortoiliac bifu rcation creating 2 channels at the bifurcation. IMPRESSION: An approximately 2 centimeter sized abscess is present in the pancreatic head-body junct ion new from April 08 imaging. Multiple extraluminal air collections are present. This is not curren tly a drainable collection. Free air now extends into the previously detailed dilated pancreatic duct. Distended gallbladder with wall thickening and edema. No biliary tree dilatation or pneumobilia seen. Slightly delayed function of the normal sized right kidney compared to the atrophic left kidney. Righ t kidney is edematous but does not show focal parenchymal abnormality. Large stool volume distending the entirety of the colon. No small bowel dilatation.
[2020-04-16 07:52] LABS: Absolute Lymphocytes (CBC) 0.6 K/uL (0.7-4.9); Basophils % 0.5 % (0-1.3); Hematocrit 25.4 % (39.6-49.0); Lymphocytes % 30.3 % (15.3-44.8); RBC Red Blood Cell Count 2.52 M/uL (4.33-5.43)
[2020-04-16] MEDS: LIPASE PO SCH ×3 (08:00→16:25)
[2020-04-16] MEDS: PROTEASE PO SCH ×3 (08:00→16:25)
[2020-04-16] MEDS ORDERED: MAGNESIUM SULFATE 1 gm IVPB 1 GM/100 ML BAG IV ONE (08:00)
[2020-04-16] MEDS: AMYLASE PO SCH ×3 (08:00→16:25)
[2020-04-16] MEDS: NEPRO SHAKE 237 ML CAN PO SCH (09:00)
[2020-04-16] MEDS: [UNRECOGNIZED DRUG - OTHER] PO SCH (09:00)
[2020-04-16] MEDS: PS CMP PO SCH (09:00)
[2020-04-16] MEDS: HEPARIN 5000 UNIT/ML 1 ML VIAL SQ SCH (09:00)
[2020-04-16] MEDS: VIT C PO SCH (09:00)
[2020-04-16] MEDS ORDERED: AMLODIPINE 10 MG TAB PO SCH (09:00)
[2020-04-16] MEDS: IRON FUM PO SCH (09:00)
[2020-04-16] MEDS: VALACYCLOVIR 500 MG TAB PO SCH (09:03)
[2020-04-16] MEDS: ATORVASTATIN 40 MG TAB PO SCH (09:03)
[2020-04-16] MEDS: CALCITROL 0.25 MCG CAP PO SCH (09:03)
[2020-04-16] MEDS: CALCIUM CARBONATE 500 MG TAB PO SCH ×2 (09:03→12:28)
[2020-04-16] MEDS: FAMOTIDINE 20 MG TAB PO SCH (09:03)
[2020-04-16] MEDS: predniSONE 5 MG TAB PO SCH (09:03)
[2020-04-16 09:48] LABS: Blood Morphology Comment NOTED (NOT SEEN); Ovalocytes 1+; Platelet Estimate DECR
[2020-04-16 09:49] LABS: Anisocytosis 2+; Macrocytosis 1+
--- NOTE | 2020-04-16 14:50 | P.DS ---
Admission Date: 04/08/20 Discharge Date: 04/16/20 Primary Care Provider: Nephrology-Dr. Garnett; Oncology-Dr. Varela Disposition: MA HOME/HOME HEALTH CARE Discharge Condition: GOOD Reason for Admission: ACUTE RENAL INSUFFICIENCY Consultations: Nephrology-Dr. Garnett Infectious disease-Dr. Sandoval GI-Dr. Montelongo Oncology-Dr. Varela Procedures: Renal US: COMPARISON: Stone Protocol dated 04/08/2020 FINDINGS: The right kidney measures 10.1 x 4.8 x 4.4 cm. The left kidney measures 7.9 x 2.9 x 2.7 cm. Right renal cortical thickness and echogenicity are within range of normal. No right-sided hydronephrosis or mass identified. Left kidney is atrophic relative to the right with thin cortex and lobulated contour. This matches the CT finding from earlier in the day. Increased cortical echogenicity of the left kidney is consistent with medical renal disease. No left-sided hydronephrosis or suspicious mass. Urinary bladder is contracted around a Bravo catheter. IMPRESSION: No hydronephrosis or suspicious mass of either kidney. Medical renal disease evident in an atrophic left kidney with thin echogenic cortex and lobulated contour. Initial CT Scan: FINDINGS: No suspicious findings in the lung bases. Left hemidiaphragm elevation present. Liver and spleen show no suspicious findings. At least 1 punctate gallstone is seen near the fundus. Gallbladder is not dilated. Wall of the gallbladder is mildly prominent but similar to comparison. Biliary tree does not appear dilated. Again noted is pronounced pancreatic duct dilatation. Pancreatic parenchymal calcifications have developed at the head body junction. There is prominent heterogeneity around the pancreatic head and body junction with fullness and poor tissue plane demarcation. No hydronephrosis of the right kidney. No obstructing calculi. Atrophic left kidney shows no hydronephrosis or obstructing calculus. No new perinephric stranding. No hydronephrosis or suspicious renal mass. No significant adrenal finding. Isodense renal masses and pyelonephritis cannot be excluded in the absence of IV contrast. The urinary bladder is without significant finding. Large stool volume fills but does not dilate the colon. An acute colon process not suspected. Hyperdense material in the colon is probably ingested medication or possibly contrast from an outside study. No acute stomach or small bowel abnormality. Duodenal C-loop and antrum of the stomach are not well defined at the boundary with the pancreas. No free air, free fluid or inflammatory stranding. No hernia, mass or bulky lymphadenopathy. No suspicious bony findings. Patient has advanced degenerative change in the lower lumbar spine. IMPRESSION: Mass in the head body junction of the pancreas matching the PET-CT finding of March 06. There is poor tissue plane differentiation between the pancreas, duodenum and stomach. Assessment is limited but the pancreatic mass is not clearly different from the March 06 PET-CT study. No acute bowel finding identified. Moderately large stool volume fills but does not dilate the colon. No free air, free fluid or surgically emergent finding. Full assessment is limited is the absence of IV contrast. Follow up CT scan: FINDINGS: Trace left pleural effusion. Left base scarring changes also present. No pericardial effusion. Liver parenchyma enhances normally with no focal lesion. No focal splenic abnormality. Gallbladder is distended with the wall slightly thickened and edematous. No intrahepatic or extrahepatic biliary tree dilatation identifiable. Marked dilatation of the pancreatic duct is again noted. There is now numerous air collections throughout the dilated pancreatic duct. Additional air densities at the pancreatic head body junction are present believed to be extraluminal. No drainable fluid collection is seen. Head of the pancreas is edematous with poor demarcation of tissue planes between the pancreatic head and the duodenal C- loop. No pneumobilia present. It is unknown if the patient underwent ERCP or other procedure that may have introduced air into the pancreatic duct system. No abnormal peripancreatic lymphadenopathy. Bilateral renal function is present. Small atrophic left kidney does have some function present. No hydronephrosis of either kidney. The right kidney appears slightly edematous. Renal function is asymmetric with the right kidney delayed slightly relative to the left. There is no etiology seen for the asymmetry. No obstructing calculus. No pyelonephritis or focal abnormality of the renal parenchyma. Perinephric stranding is present. Urinary bladder wall is slightly thickened. Contracted state limits accurate assessment of the wall. Air within the lumen is probably from catheterization but needs correlation to exclude infectious etiology. No adrenal abnormalities. No gastric dilatation or wall thickening. No dilated small bowel loops. Large stool volume distends the colon from cecum to rectum. No focal colon mass. No free air elsewhere in the peritoneal or retroperitoneal spaces. No pneumatosis or free fluid. No hernia, mass or bulky lymphadenopathy. No suspicious bony findings. Dense aortoiliac atherosclerotic calcifications are present. Minimal aneurysmal dilatation of the aorta just above the bifurcation. This measures 2.3 cm AP x 2.8 cm TR. 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 There are displaced calcifications at the aortoiliac bifurcation creating 2 channels at the bifurcation. IMPRESSION: An approximately 2 centimeter sized abscess is present in the pancreatic head-body junction new from April 08 imaging. Multiple extraluminal air collections are present. This is not currently a drainable collection. Free air now extends into the previously detailed dilated pancreatic duct. Distended gallbladder with wall thickening and edema. No biliary tree dilatation or pneumobilia seen. Slightly delayed function of the normal sized right kidney compared to the atrophic left kidney. Right kidney is edematous but does not show focal parenchymal abnormality. Large stool volume distending the entirety of the colon. No small bowel dilatation. Surgery: Date of Procedure: 04/10/2020 Surgeon: Aden Maradiaga MD, Preoperative Diagnosis: End-stage renal disease. Postoperative Diagnosis: End-stage renal disease. Procedure Performed: Placement of a right internal jugular tunnel hemodialysis catheter using ultrasound guidance, fluoroscopic interpretation, and microintroducer was used. Anesthesia: MAC plus local with 1% lidocaine without epinephrine. Estimated Blood Loss: Less than 5 cc. Specimen: None. Findings: Dark nonpulsatile blood return. Medical Problem List: Acute on chronic renal disease stage 5 with worsening chronic renal disease with uremia and severe acidosis now with end-stage renal disease on hemodialysis Pancytopenia with MDS CAD DM Type 2 non-insulin dependent HTN Hyperlipidemia History of pancreatic mass/abscess GERD Hypothyroidism BPH Brief History of Present Illness: 84-year-old male with multiple medical problems presented to the emergency room with worsening renal function. Patient found to have acute on chronic renal failure stage 5. Patient with history of MDS. Patient admitted for further evaluation and treatment. Hospital Course: Patient presented with acute on chronic renal disease stage 5. Worsening chronic renal disease was noted with uremia and severe acidosis. Nephrology was consulted. Nephrology recommended hemodialysis. Patient now end-stage renal disease. Surgery was consulted for dialysis catheter placement. Etiology of worsening renal disease is unknown. Nephrology spoke to Oncology concerning patient. Due to his history of MDS it was recommended that he renal biopsy be done to further evaluate for possible multiple myeloma. Unfortunately this could not be done by Radiology due to window reaching to kidney. The patient has done well with dialysis. The patient will continue with outpatient dialysis. This was arranged with the help of social work. At discharge patient will continue with hemodialysis every Tuesday, Tuesday and Tuesday. His next session is in [facility] at 3:30 a.m.. Recommendation is to continue with 1500 cc per day fluid restriction. Renal diet recommended. At discharge patient will continue with calcitriol 0.5 mcg every 48 hr, Oscal 1000 mg 3 times a day and Nepro 1 can twice daily. Recommend follow up with nephrology within 1 week. Recommend to recheck lab-BMP at that time. Nephrology plans to send the patient up to [place] with [facility] radiology obtain renal biopsy for further evaluation. Nephrology has mention that if patient found to have multiple myeloma this may be able to be treated. If this continues to show MDS then nephrology will further evaluate with Oncology and the patient. Co nsiderations at that time may be hospice if the patient does not want a continue with hemodialysis. Plan of care addressed with patient and daughter. Advanced care planning address in detail with both is well. Advanced care planning-30 min. His hospitalization was further complicated as the patient has a pancreatic mass that has been followed by GI-Dr. Sorenson in [place] as an outpatient. Patient has had a major workup in the past for this. Recent CT scan as an outpatient required further evaluation. This included ERCP. Patient had ERCP with endoscopic ultrasound-guided biopsy of the pancreas. Recent biopsy report showed inflammation with possible abscess. Repeat CT scan at this time shows a 2 cm area at the head and body of the pancreas. This is suspicious for abscess. Case discussed in detail with [facility]-Dr. Sorenson, nephrology, Infectious Disease and oncology. reports that the area has significantly improved since he last saw the patient prior to ERCP. It measured about 4 cm at that time. It is now 2 cm. He feels that this is primarily inflammation. But agrees with plan of care to start Cipro 250 mg daily and Flagyl 500 mg 3 times a day to cover for 1 week. Recommendation is to recheck CT scan after that time to monitor the inflammation possible abscess. Patient did not present with any sepsis related symptoms. No evidence of abdominal pain, nausea vomiting noted. Patient should follow up with GI in [place] in the next 2 weeks to follow up and further address this issue. At discharge patient may continue with Creon 04391 units 3 pills 3 times a day. Patient presented with pancytopenia. This was addressed by oncology in detail. Patient with underlying MDS. As mentioned above patient was to be evaluated for multiple myeloma. Renal biopsy cannot be done. Renal biopsy will be planned as an outpatient with Interventional Radiology in [place]. This can be further addressed by nephrology. Recommend follow up with Oncology to further monitor and address his condition. Recommend to recheck lab-CBC in 1-2 weeks to monitors progress. At discharge patient may continue with his prior medications of iron daily, prednisone 5 mg daily, Valtrex 500 mg daily, and Diflucan 50 mg daily. Further adjustment can be done by oncology. Patient with CAD. At discharge patient will continue with current medication aspirin 81 mg daily. Patient with type 2 diabetes. This is remained stable. At discharge patient may continue with glimepiride 1 mg daily. Recommend to maintain blood sugar less than 140 fasting and less 200 after meals. Hold medication if blood sugar less than 100. Further adjustment in medication can be done by PCP. Patient with hypertension. This has remained stable. At discharge he will continue with current medication-Norvasc 10 mg daily. Recommend to maintain blood pressure less 150/80. Further adjustment can be done by his PCP. Patient with hyperlipidemia. At discharge patient may continue with current medication-Lipitor 40 mg daily. Patient with GERD. At discharge he will continue with Pepcid 20 mg daily. Patient with BPH. At discharge he may continue with Flomax 0.4 mg daily Vital Signs/Physical Exam: Temp Pulse Resp BP Pulse Ox 97.2 F 59 16 169/66 H 99 04/16/20 12:00 04/16/20 12:00 04/16/20 12:00 04/16/20 12:04/16/20 12:00 General: Alert, In no apparent distress, Oriented x3, Cooperative HEENT: Atraumatic Neck: Supple Respiratory: Clear to auscultation bilaterally, Normal air movement Cardiovascular: Normal pulses, Regular rate/rhythm Gastrointestinal: Normal bowel sounds, Soft and benign, Non-distended, No tenderness, No masses, No rebound, No guarding Neurological: Normal speech, Normal strength at 5/5 x4 extr, Normal tone, Normal affect Laboratory Data at Discharge: WBC 1.8 K/uL (4.3-10.9) L* 04/16/20 07:30 Hgb 8.2 g/dL (13.6-17.9) L 04/16/20 07:30 Hct 25.4 % (39.6-49.0) L 04/16/20 07:30 Plt Count 71 K/uL (152-406) L 04/16/20 07:30 PT 12.7 SECONDS (9.5-12.5) H 04/09/20 09:03 INR 1.08 04/09/20 09:03 APTT 28.8 SECONDS (24.3-36.9) 04/09/20 09:03 Sodium 142 mmol/L (136-145) 04/16/20 06:32 Potassium 4.2 mmol/L (3.5-5.1) 04/16/20 06:32 BUN 48 mg/dL (7-18) H 04/16/20 06:32 Creatinine 4.89 mg/dL (0.55-1.3) H D 04/16/20 06:32 Glucose 83 mg/dL (74-106) 04/16/20 06:32 Uric Acid 6.2 mg/dL (3.5-7.2) 04/10/20 05:06 Phosphorus 3.2 mg/dL (2.5-4.9) 04/14/20 03:46 Magnesium 1.8 mg/dL (1.8-2.4) 04/16/20 06:32 Total Bilirubin 0.3 mg/dL (0.2-1.0) 04/09/20 09:03 AST 12 U/L (15-37) L 04/09/20 09:03 ALT 13 U/L (12-78) 04/09/20 09:03 Alkaline Phosphatase 61 U/L (45-117) 04/09/20 09:03 Lipase 15 U/L (73-393) L 04/08/20 16:22 Home Medications: Aspirin Chewable [Aspirin Chewable*] 81 mg PO DAILY 04/09/20 Atorvastatin Calcium [Lipitor] 40 mg PO DAILY 04/09/20 Famotidine [Pepcid*] 20 mg PO DAILY 04/09/20 Fluconazole [Diflucan] 50 mg PO DAILY 04/09/20 Glimepiride 1 mg PO DAILY 04/09/20 Iron Fum & Ps Cmp/Vit C & B [Integra Capsule] 1 cap PO DAILY 04/09/20 Levothyroxine Sodium 1 tab PO DAILY 04/09/20 Lipase/Protease/Amylase [Al Dr 36,000 Units Capsule] 3 cap PO TIDWM 04/09/20 Tamsulosin [Flomax*] 0.4 mg PO DAILY 04/09/20 Valacyclovir [Valtrex*] 500 mg PO DAILY 04/09/20 predniSONE [Prednisone*] 5 mg PO DAILY 04/09/20 Amlodipine [Norvasc*] 10 mg PO DAILY #30 tab 04/16/20 Calcitrol [Rocaltrol*] 0.5 mcg PO Q48H #30 cap 04/16/20 Calcium Carbonate [Oscal*] 1,000 mg PO TID #180 tab 04/16/20 Ciprofloxacin HCl [Cipro] 250 mg PO DAILY #7 tablet 04/16/20 Nepro Shake [Nepro*] 237 ml PO BID #60 can 04/16/20 metroNIDAZOLE [Flagyl] 500 mg PO Q8H #21 tablet 04/16/20 New Medications: Ciprofloxacin HCl [Cipro] 250 mg PO DAILY #7 tablet metroNIDAZOLE [Flagyl] 500 mg PO Q8H #21 tablet Nepro Shake [Nepro*] 237 ml PO BID #60 can Amlodipine [Norvasc*] 10 mg PO DAILY #30 tab Calcium Carbonate [Oscal*] 1,000 mg PO TID #180 tab Calcitrol [Rocaltrol*] 0.5 mcg PO Q48H #30 cap Patient Discharge Instructions: 1. Follow up with PCP in 1 week to follow up this hospitalization. 2. Patient presented with acute on chronic renal disease stage 5. Worsening chronic renal disease was noted with uremia and severe acidosis. Nephrology was consulted. Nephrology recommended hemodialysis. Patient now end-stage renal disease. Surgery was consulted for dialysis catheter placement. Etiology of worsening renal disease is unknown. Nephrology spoke to Oncology concerning patient. Due to his history of MDS it was recommended that he renal biopsy be done to further evaluate for possible multiple myeloma. Unfortunately this could not be done by Radiology due to window reaching to kidney. The patient has done well with dialysis. The patient will continue with outpatient dialysis. This was arranged with the help of social work. At discharge patient will continue with hemodialysis every Tuesday, Tuesday and Tuesday. His next session is in [facility] at 3:30 a.m.. Recommendation is to continue with 1500 cc per day fluid restriction. Renal diet recommended. At discharge patient will continue with calcitriol 0.5 mcg every 48 hr, Oscal 1000 mg 3 times a day and Nepro 1 can twice daily. Recommend follow up with nephrology within 1 week. Recommend to recheck lab-BMP at that time. Nephrology plans to send the patient up to [place] with enter pressure radiology obtain renal biopsy for further evaluation. Nephrology has mention that if patient found to have multiple myeloma this may be able to be treated. If this continues to show MDS then nephrology will further evaluate with Oncology and the patient. Considerations at that time may be hospice if the patient does not want a continue with hemodialysis. Plan of care addressed with patient and daughter. Advanced care planning address in detail with both is well. Advanced care planning-30 min. 3. His hospitalization was further complicated as the p atient has a pancreatic mass that has been followed by GI-Dr. Sorenson in [place] as an outpatient. Patient has had a major workup in the past for this. Recent CT scan as an outpatient required further evaluation. This included ERCP. Patient had ERCP with endoscopic ultrasound-guided biopsy of the pancreas. Recent biopsy report showed inflammation with possible abscess. Repeat CT scan at this time shows a 2 cm area at the head and body of the pancreas. This is suspicious for abscess. Case discussed in detail with GI-[facility], GI-Dr. Sorenson, nephrology, Infectious Disease and oncology. reports that the area has significantly improved since he last saw the patient prior to ERCP. It measured about 4 cm at that time. It is now 2 cm. He feels that this is primarily inflammation. But agrees with plan of care to start Cipro 250 mg daily and Flagyl 500 mg 3 times a day to cover for 1 week. Recommendation is to recheck CT scan after that time to monitor the inflammation possible abscess. Patient did not present with any sepsis related symptoms. No evidence of abdominal pain, nausea vomiting noted. Patient should follow up with GI in [place] in the next 2 weeks to follow up and further address this issue. At discharge patient may continue with Creon [id number] units 3 pills 3 times a day. 4. Patient presented with pancytopenia. This was addressed by oncology in [place]. Patient with underlying MDS. As mentioned above patient was to be evaluated for multiple myeloma. Renal biopsy cannot be done. Renal biopsy will be planned as an outpatient with Interventional Radiology in [place]. This can be further addressed by nephrology. Recommend follow up with Oncology to further monitor and address his condition. Recommend to recheck lab-CBC in 1-2 weeks to monitors progress. At discharge patient may continue with his prior medications of iron daily, prednisone 5 mg daily, Valtrex 500 mg daily, and Diflucan 50 mg daily. Further adjustment can be done by oncology. 5. Patient with CAD. At discharge patient will continue with current medication aspirin 81 mg daily. 6. Patient with type 2 diabetes. This is remained stable. At discharge patient may continue with glimepiride 1 mg daily. Recommend to maintain blood sugar less than 140 fasting and less 200 after meals. Hold medication if blood sugar less than 100. Further adjustment in medication can be done by PCP. 7. Patient with hypertension. This has remained stable. At discharge he will continue with current medication-Norvasc 10 mg daily. Recommend to maintain blood pressure less 150/80. Further adjustment can be done by his PCP. 8. Patient with hyperlipidemia. At discharge patient may continue with current medication-Lipitor 40 mg daily. 9. Patient with GERD. At discharge he will continue with Pepcid 20 mg daily. 10. Patient with BPH. At discharge he may continue with Flomax 0.4 mg daily Diet: ADA Activity: Ad davie Time spent managing pt's care (in minutes): 55
--- NOTE | 2020-04-16 15:31 | P.CNS ---
Date of Consult: 04/16/20 Subjective: Patient is an 84 year old male who presents with weakness. Patient reports nausea and weakness for about three weeks. Patient reports episode of low blood sugar in the 40's resulting in a fall. Patient found to have pancytopenia which he has been seeing a black top paver operator for the past year. Also found to have acute renal insufficiency. Abdominal CT showed Pancreatic abscess which I have been consulted for. Patient reports having a "spot on pancreas since 1994." - Past Medical/Surgical History Has patient received pneumonia vaccine in the past: Yes Diabetic: Yes -: HTN -: NIDDM -: Inflammation of the Pancreas -: Hypothyroidism -: Kidney Insufficiency -: Gout -: CORONARY ARTERY BYPASS GRAFTING - Family History Mother Medical History: Cancer Notes: Stomach Cancer Father Notes: Heart Attack - Social History Smoking Status: Former smoker, quit in 1983 Alcohol use: Quit in [address] of [address]: Home Allergies No Known Allergies Allergy (Verified 04/08/20 20:33) Active Medications Acetaminophen (Tylenol -Extra Strength) 500 mg PO Q4HP PRN PRN Reason: pain/fever Stop: 05/08/20 17:53 Last Admin: 04/12/20 17:57 Dose: 500 mg Documented by: Amlodipine Besylate (Norvasc) 10 mg PO DAILY LAW Stop: 05/16/20 09:01 Last Admin: 04/16/20 09:02 Dose: 10 mg Documented by: Atorvastatin Calcium (Lipitor) 40 mg PO DAILY LAW Stop: 05/13/20 09:01 Last Admin: 04/16/20 09:03 Dose: 40 mg Documented by: Calcitriol (Rocaltrol) 0.5 mcg PO Q48H LAW Stop: 05/10/20 09:01 Last Admin: 04/16/20 09:03 Dose: 0.5 mcg Documented by: Calcium Carbonate/Glycine (Oscal) 1,000 mg PO TID LAW Stop: 05/10/20 14:01 Last Admin: 04/16/20 12:28 Dose: 1,000 mg Documented by: Enteral Nutritional Formula (Nepro Shake) 237 ml PO BID LAW Stop: 05/11/20 21:01 Last Admin: 04/16/20 09:00 Dose: Not Given Documented by: Epoetin Godwin (Retacrit) 8,000 unit IV EVERY HD LAW Stop: 05/15/20 11:16 Famotidine (Pepcid) 20 mg PO DAILY [facility]; Protocol Stop: 05/13/20 09:01 Last Admin: 04/16/20 09:03 Dose: 20 mg Documented by: Heparin Sodium (Porcine) (Heparin 5,000 Units/Ml) 5,000 unit SQ Q12HR [facility] Stop: 05/08/20 21:01 Last Admin: 04/16/20 09:00 Dose: Not Given Documented by: Heparin Sodium (Porcine) (Heparin 1,000 Units/Ml) 4,000 unit IV EVERY HD PRN PRN Reason: dialysis Last Admin: 04/10/20 18:05 Dose: 4,000 unit Documented by: Home Med (Iron Fum & Ps Cmp/Vit C & B [Integra Capsule]) 1 cap PO DAILY [facility] Stop: 05/13/20 09:01 Last Admin: 04/16/20 09:00 Dose: Not Given Documented by: Home Med (Lipase/Protease/Amylase [Creon Dr 36,000 Units Capsule]) 3 cap PO TIDWM [facility] Stop: 05/12/20 17:01 Last Admin: 04/16/20 11:36 Dose: Not Given Documented by: Levothyroxine Sodium (Synthroid) 0.025 mg PO DAILYAC [facility] Stop: 05/10/20 06:31 Last Admin: 04/16/20 07:26 Dose: 0.025 mg Documented by: Ondansetron HCl (Zofran) 4 mg IV Q6HP PRN PRN Reason: NAUSEA / VOMITING Stop: 05/08/20 17:53 Last Admin: 04/11/20 05:24 Dose: 4 mg Documented by: Prednisone (Deltasone) 5 mg PO DAILY [facility] Stop: 05/13/20 09:01 Last Admin: 04/16/20 09:03 Dose: 5 mg Documented by: Sodium Chloride (Normal Saline Flush) 10 ml IV BID [facility] Stop: 05/08/20 21:01 Last Admin: 04/16/20 09:04 Dose: 10 ml Documented by: Valacyclovir HCl (Valtrex) 500 mg PO DAILY [facility] Stop: 05/13/20 09:01 Last Admin: 04/16/20 09:03 Dose: 500 mg Documented by: ROS: CV: Denies chest pain RESP: Denies shortness of breath : denies dysuria GI: Reports nausea and decreased appetite, denies diarrhea MSK: Reports weakness and uses a cane to ambulate Objective: Temp Pulse Resp BP Pulse Ox 97.2 F 59 16 169/66 H 99 04/16/20 12:00 04/16/20 12:00 04/16/20 12:00 04/16/20 12:00 04/16/20 12:00 Labs: Sodium 142, potassium 4.2, BUN 48, creatinine 4.89, WBC 1.8, hemoglobin 8.2, hematocrit 25.4, platelets 71 EXAM DESCRIPTION: CT - Abdomen Pelvis W Contrast - 04/16/2020 6:16 am CLINICAL HISTORY: evaluate pancreatic mass, rule out abscess COMPARISON: RENAL BIOPSY dated 04/11/2020; [facility] Protocol dated 04/08/2020 TECHNIQUE: Biphasic, helical CT imaging of the abdomen and pelvis was performed following 100 ml non-ionic IV contrast. No oral contrast administered. All CT scans are performed using dose optimization technique as appropriate and may include automated exposure control or mA/KV adjustment according to patient size. FINDINGS: Trace left pleural effusion. Left base scarring changes also present. No pericardial effusion. Liver parenchyma enhances normally with no focal lesion. No focal splenic abnormality. Gallbladder is distended with the wall slightly thickened and edematous. No intrahepatic or extrahepatic biliary tree dilatation identifiable. Marked dilatation of the pancreatic duct is again noted. There is now numerous air collections throughout the dilated pancreatic duct. Additional air densities at the pancreatic head body junction are present believed to be extraluminal. No drainable fluid collection is seen. Head of the pancreas is edematous with poor demarcation of tissue planes between the pancreatic head and the duodenal C- loop. No pneumobilia present. It is unknown if the patient underwent ERCP or other procedure that may have introduced air into the pancreatic duct system. No abnormal peripancreatic lymphadenopathy. Bilateral renal function is present. Small atrophic left kidney does have some function present. No hydronephrosis of either kidney. The right kidney appears slightly edematous. Renal function is asymmetric with the right kidney delayed slightly relative to the left. There is no etiology seen for the asymmetry. No obstructing calculus. No pyelonephritis or focal abnormality of the renal parenchyma. Perinephric stranding is present. Urinary bladder wall is slightly thickened. Contracted state limits accurate assessment of the wall. Air within the lumen is probably from catheterization but needs correlation to exclude infectious etiology. No adrenal abnormalities. No gastric dilatation or wall thickening. No dilated small bowel loops. Large stool volume distends the colon from cecum to rectum. No focal colon mass. No free air elsewhere in the peritoneal or retroperitoneal spaces. No pn eumatosis or free fluid. No hernia, mass or bulky lymphadenopathy. No suspicious bony findings. Dense aortoiliac atherosclerotic calcifications are present. Minimal aneurysmal dilatation of the aorta just above the bifurcation. This measures 2.3 cm AP x 2.8 cm TR. 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 There are displaced calcifications at the aortoiliac bifurcation creating 2 channels at the bifurcation. IMPRESSION: An approximately 2 centimeter sized abscess is present in the pancreatic head-body junction new from April 08 imaging. Multiple extraluminal air collections are present. This is not currently a drainable collection. Free air now extends into the previously detailed dilated pancreatic duct. Distended gallbladder with wall thickening and edema. No biliary tree dilatation or pneumobilia seen. Slightly delayed function of the normal sized right kidney compared to the atrophic left kidney. Right kidney is edematous but does not show focal parenchymal abnormality. Large stool volume distending the entirety of the colon. No small bowel dilatation. ROS: General: Awake, alert oriented CV: S1,S2 RESP: Good breath sounds ABD: Nontender, nondistended, bowel sounds present Extremities: No edema Assessment and plan: Pancreatic Abscess, recommend Cipro and Flagyl IV for total of 2 weeks Patient will need repeat abdominal CT after 2 week treatment with antibiotics Pancytopenia, Hematology following Diabetes mellitus, monitor glycemic control Will continue to monitor Thank you for consult Patient discussed with Dr. Sandoval
[2020-04-16 16:35] VITALS: BP 134/68; TEMP 97.3
[2020-04-16 20:06] LABS: Albumin, (SPE) 2.4 g/dL (3.8-4.8); Alpha-1-Globulins 0.3 g/dL (0.2-0.3); Alpha-2-Globulins 0.5 g/dL (0.5-0.9); Gamma Globulins 1.1 g/dL (0.8-1.7); INTERPRETATION REPORT
== END 2020-04-16 20:09 | disposition home health service (06) | DRG 673 ==
LOC: ER 15:06 → ERHOLD 17:52 → 2ND 19:56
PROVIDERS: ADMIT Hospitalist; ATTEND Family Medicine
PROC: 30233N1 Transfusion of Nonautologous Red Blood Cells into Peripheral Vein, Percutaneous Approach (ICD-10-PCS; 2020-04-08)
PROC: 02HV33Z Insertion of Infusion Device into Superior Vena Cava, Percutaneous Approach (ICD-10-PCS; 2020-04-10)
PROC: 5A1D70Z Performance of Urinary Filtration, Intermittent, Less than 6 Hours Per Day (ICD-10-PCS; 2020-04-10)
PROC: 0JH63XZ Insertion of Tunneled Vascular Access Device into Chest Subcutaneous Tissue and Fascia, Percutaneous Approach (ICD-10-PCS; principal; 2020-04-10 09:00)
DX: N17.9 Acute kidney failure, unspecified (principal); K85.90 Acute pancreatitis without necrosis or infection, unspecified; I12.0 Hypertensive chronic kidney disease with stage 5 chronic kidney disease or end stage renal disease; C90.00 Multiple myeloma not having achieved remission; E87.2 Acidosis; K21.9 Gastro-esophageal reflux disease without esophagitis; N18.6 End stage renal disease; N40.0 Benign prostatic hyperplasia without lower urinary tract symptoms; E11.40 Type 2 diabetes mellitus with diabetic neuropathy, unspecified; N25.81 Secondary hyperparathyroidism of renal origin; D63.1 Anemia in chronic kidney disease; D46.9 Myelodysplastic syndrome, unspecified; E11.22 Type 2 diabetes mellitus with diabetic chronic kidney disease; I25.10 Atherosclerotic heart disease of native coronary artery without angina pectoris; E03.9 Hypothyroidism, unspecified; N28.9 Disorder of kidney and ureter, unspecified; Z79.82 Long term (current) use of aspirin; Z79.84 Long term (current) use of oral hypoglycemic drugs; Z79.890 Hormone replacement therapy; Z79.52 Long term (current) use of systemic steroids; Z79.899 Other long term (current) drug therapy; Z95.1 Presence of aortocoronary bypass graft; Z86.19 Personal history of other infectious and parasitic diseases; Z53.8 Procedure and treatment not carried out for other reasons; Z20.828 Contact with and (suspected) exposure to other viral communicable diseases
CPT/HCPCS: 36415; 51702; 71045; 74176; 74177; 76000; 76377; 76770; 80048; 80053; 80069; 80076; 81003; 81015; 82435; 82550; 82570; 82607; 82728; 82746; 82947; 83540; 83605; 83690; 83735; 83880; 83970; 84100; 84132; 84156; 84165; 84300; 84439; 84443; 84466; 84484; 84550; 85014; 85018; 85025; 85044; 85610; 85730; 86317; 86706; 86803; 86850; 86900; 86901; 87086; 87088; 87340; 87522; 90935; 93005; 97116; 97161; 97530; 99215; 99285; C1752; C9113; J0360; J0610; J0690; J1100; J1200; J1644; J2250; J2405; J2597; J3010; J3475; J7030; J7040; J7050; J7512; P9016; Q5105; Q5106; Q9967; U0002

== ENCOUNTER 2020-11-09 14:23 | Emergency (ER) | payer OTHER ==
--- OUTSIDE RECORDS SUMMARY | 2020-11-09 14:27 | XMS REPORT | Continuity of Care Document ---
:1935 Author Organization [facility] t Address [address] [place] [address] Care Team Providers Name Role Phone LORI Attending Clinician Unavailable Lab, Covid Attending Clinician Unavailable Seth GOMEZ, R Attending Clinician Lab, Fam Pob I Attending Clinician Unavailable Only, Test Attending Clinician Unavailable Payers Payer Name Policy Type Policy Effective Date Expiration Date Sour ce Number [employer]UST[facility]AN[employer] [facility] [id number] [id number] 2019- 00:00:00 Kenia Yap Contracted [facility] Problems This patient has no known problems. Allergies, Adverse Reactions, Alerts This patient has no known allergies or adverse reactions. Social History Social Habit Start Date Stop Date Quantity Comments Source Sex Assigned At [facility] Medications This patient has no known medications. Procedures This patient has no known procedures. Encounters Start End Encounter Admission Attending Care Care Encounter Source Date/Time Date/Time Type Type Clinicians Facility Department ID 2020-09-16 2020-09-16 Outpatient [facility] [id number] 07:53:00 07:53:00 2020-06-19 2020-06-19 [facility] [id number] [place] 00:00:00 00:00:00 MA[address] 2020-04-01 2020-04-01 Outpatient [facility] [id number] [facility] 12:32:00 12:32:00 2020-03-24 2020-03-24 Letter Lab, Pcp [facility] [id number] 00:00:00 00:00:00 (Out) [facility] [id number] [place] [id number] [facility] [phone] [address] [address] 2020-03-22 2020-03-22 Ankit LINDSEY [id number] 00:00:00 00:00:00 aFercho MACARIO [id number] [facility] [id number] [id number] 2020-03-20 2020-03-20 Laboratory Lab, [facility] [id number] 15:44:50 16:04:50 Only Fam Pob I Health [id number] [place] [id number] [facility] [phone] [place] [address] [address] 2020-02-06 2020-02-06 Laboratory Only, [facility] [id number] 08:22:46 08:37:46 Only Test [place] [id number] [place] [id number] [place] [phone] [id number] Results This patient has no known results.
[2020-11-09 17:03] LABS: SARS-COV-2 RT PCR NEGATIVE (NEGATIVE)
[2020-11-09] MEDS ORDERED: dexAMETHasone 10 MG/ML VIAL ONE (17:36)
--- NOTE | 2020-11-09 17:38 | ER ---
Nurse's Notes [facility] Name: Dennys Eden Jr Age: 85 yrs Sex: Male : 1935 Arrival Date: 11/09/2020 Time: 14:26 Bed 15 Private MD: Fercho Nicole R Diagnosis: Acute pharyngitis Presentation: 11/09 14:32 Chief complaint: Patient states: R sided throat pain began last night. Hard to swallow, ll1 didn't take his pills today. No fever. No cough or N/V/D. Coronavirus screen: Client denies travel out of the [place] in the last 14 days. At this time, the client does not indicate any symptoms associated with coronavirus-19. Ebola Screen: Patient denies travel to an Ebola-affected area in the 21 days before illness onset. Initial Sepsis Screen: Does the patient meet any 2 criteria? No. Patient's initial sepsis screen is negative. Does the patient have a suspected source of infection? Yes: Other: sore throat. Risk Assessment: Do you want to hurt yourself or someone else? Patient reports no desire to harm self or others. Onset of symptoms was November 08, 2020. 14:32 Method Of Arrival: Wheelchair ll1 14:32 Acuity: RANDI 3 ll1 Historical: - Allergies: 14:35 No Known Allergies; ll1 - PMHx: 14:35 Diabetes - NIDDM; Hypothyroidism; Hypertension; Kidney insufficiency; MDS-bone marrow ll1 CA; Dialysis; M,W,F; - PSHx: 14:35 CABG; ll1 - Immunization history:: Flu vaccine is up to date. - Social history:: Smoking status: Patient denies any tobacco usage or history of. Screenin:46 Abuse screen: Denies threats or abuse. Nutritional screening: No deficits noted. vg1 Tuberculosis screening: No symptoms or risk factors identified. Fall Risk No fall in past 12 months (0 pts). No secondary diagnosis (0 pts). No IV (0 pts). Ambulatory Aid- None/Bed Rest/Nurse Assist (0 pts). Gait- Normal/Bed Rest/Wheelchair (0 pts) Mental Status- Oriented to own ability (0 pts). Total Cabrera Fall Scale indicates No Risk (0-24 pts). Assessment: 15:44 General: Appears in no apparent distress. comfortable, Behavior is calm, cooperative. vg1 Pain: Complains of pain in right side of throat Pain currently is 8 out of 10 on a pain scale. Neuro: Level of Consciousness is awake, alert, obeys commands, Oriented to person, place, time. Cardiovascular: Patient's skin is warm and dry. Respiratory: Airway is patent Respiratory effort is even, unlabored. GI: No signs and/or symptoms were reported involving the gastrointestinal system. : No signs and/or symptoms were reported regarding the genitourinary system. EENT: Throat is reddened. Derm: Skin is intact, Skin is pink, warm \\T\\ dry. Musculoskeletal: Circulation, motion, and sensation intact. 17:28 Reassessment: Patient appears in no apparent distress at this time. No changes from vg1 previously documented assessment. Patient and/or family updated on plan of care and expected duration. Pain level reassessed. Patient is alert, oriented x 3, equal unlabored respirations, skin warm/dry/pink. Vital Signs: 14:32 BP 167 / 69; Pulse 59; Resp 16; Temp 97.5; Pulse Ox 100% ; Weight 56.7 kg; Height 5 ft. ll1 8 in. (172.72 cm); Pain 8/10; 15:45 BP 165 / 69; Pulse 53; Resp 16; Pulse Ox 100% on R/A; vg1 17:28 BP 162 / 60; Pulse 55; Resp 16; Pulse Ox 100% on R/A; vg1 14:32 Body Mass Index 19.01 (56.70 kg, 172.72 cm) ll1 ED Course: 14:26 Patient arrived in ED. mr 14:26 Fercho Nicole MD is Private Physician. mr 14:33 Triage completed. ll1 14:35 Arm band placed on Patient notified of wait time. ll1 15:22 Arnoldo Scott NP is PHCP. pm1 15:22 Stone Frausto MD is Attending Physician. pm1 15:43 Daisha Armendariz, CHRIS is Primary Nurse. vg1 15:46 Patient has correct armband on for positive identification. Bed in low position. Call vg1 light in reach. Side rails up X2. Adult w/ patient. 15:58 COVID swab sent to lab. Flu and/or RSV swab sent to lab. Strep swab sent to lab. jp3 15:58 Patient maintains SpO2 saturation greater than 95% on room air. jp3 16:39 Flu Sent. sv 16:39 Strep Sent. sv 16:39 COVID-19 : Document "Date of Symptom Onset" if Symptomatic. Sent. sv 18:03 No provider procedures requiring assistance completed. Patient did not have IV access vg1 during this emergency room visit. Administered Medications: 17:28 Drug: Decadron (dexamethasone) 10 mg Route: IM; Site: right deltoid; vg1 18:04 Follow up: Response: No adverse reaction vg1 Outcome: 17:38 Discharge ordered by MD. pm1 18:03 Discharged to home via wheelchair, with family. vg1 18:03 Condition: stable 18:03 Discharge instructions given to patient, family, Instructed on discharge instructions, follow up and referral plans. medication usage, Demonstrated understanding of instructions, follow-up care, medications, Prescriptions given X 1. 18:03 Patient left the ED. vg1 Signatures: Angela Simms, RN RN Lizbeth Treviño Patrick, CAUL DRESSER CAUL DRESSER pm1 Mahad Morales jp3 Daisha Armendariz, CHRIS RN vg1 Rimma Haney, RN RN ll1
--- NOTE | 2020-11-09 17:39 | EDPHYS ---
[facility] Name: Dennys Eden Jr Age: 85 yrs Sex: Male : 1935 Arrival Date: 11/09/2020 Time: 14:26 Bed 15 Private MD: Fercho Nicole R ED Physician Stone Frausto HPI: 11/09 15:46 This 85 yrs old Male presents to ER via Wheelchair with complaints of Sore pm1 throat. 15:46 The patient presents with sore throat. The patient describes throat pain as raw, pm1 scratchy. Onset: The symptoms/episode began/occurred last night. Severity of symptoms: in the emergency department the symptoms are unchanged. Modifying factors: the symptoms are aggravated by foods, swallowing, unaware of sick contact. Associated signs and symptoms: Pertinent negatives dysphagia, earache, fever, vomiting. The patient has not experienced similar symptoms in the past. The patient has not recently seen a physician. Historical: - Allergies: 14:35 No Known Allergies; ll1 - PMHx: 14:35 Diabetes - NIDDM; Hypothyroidism; Hypertension; Kidney insufficiency; MDS-bone marrow ll1 CA; Dialysis; M,W,F; - PSHx: 14:35 CABG; ll1 - Immunization history:: Flu vaccine is up to date. - Social history:: Smoking status: Patient denies any tobacco usage or history of. ROS: 15:46 Constitutional: Negative for fever, chills, and weight loss. pm1 15:46 Cardiovascular: Negative for chest pain, palpitations, and edema, Respiratory: Negative for shortness of breath, cough, wheezing, and pleuritic chest pain, Abdomen/GI: Negative for abdominal pain, nausea, vomiting, diarrhea, and constipation, Back: Negative for injury and pain, MS/Extremity: Negative for injury and deformity, Skin: Negative for injury, rash, and discoloration, Neuro: Negative for headache, weakness, numbness, tingling, and seizure. 15:46 ENT: Positive for sore throat, Negative for drainage from ear(s), ear pain. Exam: 15:46 Constitutional: This is a well developed, well nourished patient who is awake, alert, pm1 and in no acute distress. Head/Face: Normocephalic, atraumatic. 15:46 Skin: Warm, dry with normal turgor. Normal color with no rashes, no lesions, and no evidence of cellulitis. MS/ Extremity: Pulses equal, no cyanosis. Neurovascular intact. Full, normal range of motion. 15:46 ENT: External ear(s): are unremarkable, Ear canal(s): are normal, TM's: are normal, Posterior pharynx: Tonsils: bilaterally enlarged, with erythema, no exudate, no ulcerations, erythema, that is mild, exudate, is not appreciated, peritonsillar mass, is not appreciated, pooling of secretions, is not appreciated. 15:46 Neck: Lymph nodes: lymphadenopathy is appreciated, right anterior cervical chain. 15:46 Cardiovascular: Exam negative for acute changes, Rate: normal, Rhythm: regular, Pulses: no pulse deficits are appreciated. 15:46 Respiratory: Exam negative for acute changes, respiratory distress, shortness of breath. 15:46 Neuro: Exam negative for acute changes, Orientation: is normal, Mentation: is normal, Motor: is normal, moves all fours. Vital Signs: 14:32 BP 167 / 69; Pulse 59; Resp 16; Temp 97.5; Pulse Ox 100% ; Weight 56.7 kg; Height 5 ft. ll1 8 in. (172.72 cm); Pain 8/10; 15:45 BP 165 / 69; Pulse 53; Resp 16; Pulse Ox 100% on R/A; vg1 17:28 BP 162 / 60; Pulse 55; Resp 16; Pulse Ox 100% on R/A; vg1 14:32 Body Mass Index 19.01 (56.70 kg, 172.72 cm) ll1 MDM: 15:23 Patient medically screened. pm1 17:37 Data reviewed: vital signs. Data interpreted: Pulse oximetry: on room air is 100 %. pm1 Interpretation: normal. Counseling: I had a detailed discussion with the patient and/or guardian regarding: the historical points, exam findings, and any diagnostic results supporting the discharge/admit diagnosis, lab results, the need for outpatient follow up, to return to the emergency department if symptoms worsen or persist or if there are any questions or concerns that arise at home. 18:03 ED course: Patient reports improvement in his sore throat with steroid given in the ER. pm1 patient able to take his medications here in the ER that he did not take previously. Patient wanted some pain medications to go home with. has been taking tylenol without improvement. Will discharge with ultracet. 11/09 15:34 Order name: Flu pm1 11/09 15:34 Order name: Strep pm1 11/09 15:35 Order name: Group A Streptococcus Rapid Sc; Complete Time: 17:11 EDMS 11/09 15:44 Order name: COVID-19 : Document "Date of Symptom Onset" if Symptomatic. vg1 11/09 15:34 Order name: Droplet/Contact Precautions; Complete Time: 15:43 pm1 11/09 15:34 Order name: Labs collected and sent; Complete Time: 15:59 pm1 11/09 15:34 Order name: O2 Per Protocol; Complete Time: 15:43 pm1 11/09 16:33 Order name: Throat Culture EDMS 11/09 17:04 Order name: COVID-19/FLU A+B; Complete Time: 17:11 EDMS Administered Medications: 17:28 Drug: Decadron (dexamethasone) 10 mg Route: IM; Site: right deltoid; vg1 18:04 Follow up: Response: No adverse reaction vg1 Disposition: 18:38 Co-signature as Attending Physician, Stone Frausto MD. rn Disposition: 11/09/20 17:38 Discharged to Home. Impression: Acute pharyngitis. - Condition is Stable. - Discharge Instructions: Pharyngitis. - Prescriptions for Ultracet 37.5- 325 mg Oral Tablet - take 1 tablet by ORAL route every 6 hours As needed; 12 tablet. - Medication Reconciliation Form, Thank You Letter, Antibiotic Education, Prescription Opioid Use form. - Follow up: Emergency Department; When: As needed; Reason: Worsening of condition. Follow up: Private Physician; When: 2 - 3 days; Reason: Recheck today's complaints, Continuance of care, Re-evaluation by your physician. - Problem is new. - Symptoms have improved. Signatures: Dispatcher [employer] EDMS Stone Frausto MD MD rn Marinas, Patrick, PUBLIC HEALTH ENGINEER PUBLIC HEALTH ENGINEER pm1 Daisha Armendariz, RN RN vg1 Rimma Haney RN RN ll1 Corrections: (The following items were deleted from the chart) 16:16 15:35 Influenza Screen (A ordered. EDGA EDMS 16:16 15:44 CORONAVIRUS ordered. EDMS EDMS 18:03 17:38 11/09/2020 17:38 Discharged to Home. Impression: Acute pharyngitis. Condition is vg1 Stable. Forms are Medication Reconciliation Form, Thank You Letter, Antibiotic Education, Prescription Opioid Use. Follow up: Emergency Department; When: As needed; Reason: Worsening of condition. Follow up: Private Physician; When: 2 - 3 days; Reason: Recheck today's complaints, Continuance of care, Re-evaluation by your physician. Problem is new. Symptoms have improved. pm1 22:07 15:49 This 85 yrs old Male presents to ER via Wheelchair with complaints of pm1 Throat Swelling. pm1
[2020-11-09 18:38] VITALS: TEMP 97.5; O2SAT 100
[2020-11-09 18:41] VITALS: BP 162/60
== END 2020-11-09 18:03 | disposition home or self-care (01) ==
LOC: ER 14:23
DX: J02.9 Acute pharyngitis, unspecified (principal); Z20.822 Contact with and (suspected) exposure to COVID-19; I10 Essential (primary) hypertension; Z85.830 Personal history of malignant neoplasm of bone; Z95.1 Presence of aortocoronary bypass graft
CPT/HCPCS: 87070; 87081; 0240U; J1100; 96372; 99284